=== PATIENT | female | born 1955 | race Caucasian/White ===

== ENCOUNTER 2020-02-09 12:00 | Outpatient (CLI) | payer MEDICARE, MEDICAID, SELFPAY ==
--- NOTE | 2020-02-09 12:12 | XRR_ITS ---
PROCEDURE INFORMATION: Exam: XR Left Hip with Pelvis when Performed Exam date and time: 02/09/2020 12:42 PM Age: 64 years old Clinical indication: Hip pain; Left hip; Additional info: L hip pain x 1 month TECHNIQUE: Imaging protocol: XR Left hip with pelvis when performed. Views: 2 or 3 views. COMPARISON: No relevant prior studies available. FINDINGS: Bones/joints: Unremarkable. No acute fracture. Soft tissues: Unremarkable. XR/XR hip LT 2-3V wo/w pel* [id number] IMPRESSION: No acute findings.
== END 2020-02-09 12:01 | disposition home or self-care (01) ==
PROVIDERS: Family Provider Family Medicine; Visit Provider Family Medicine
DX: M25.552 Pain in left hip (principal)
CPT/HCPCS: 73502

== ENCOUNTER → 2020-06-17 15:16 | Outpatient (BNVA) | payer MEDICARE, MEDICAID, SELFPAY | PROVIDERS: Family Provider Family Medicine; Visit Provider Nurse Practitioner Family | DX: Z20.828 Contact with and (suspected) exposure to other viral communicable diseases (principal) | CPT/HCPCS: 87635 ==

== ENCOUNTER → 2022-02-14 14:08 | Outpatient (BNVA) | payer MEDICARE, MEDICAID, SELFPAY | PROVIDERS: Family Provider Family Medicine; PCP Family Medicine; Visit Provider Psychiatry & Neurology Neurology | DX: Z79.899 Other long term (current) drug therapy (principal) | CPT/HCPCS: 80061; 83036 ==

== ENCOUNTER 2022-07-19 18:30 | Inpatient (IN) | payer MEDICARE, MEDICAID, SELFPAY ==
[2022-02-27 15:14] VITALS: BP 139/77; BMI 55.3
--- NOTE | 2022-07-19 18:34 | XRR_ITS ---
PROCEDURE INFORMATION: Exam: XR Chest Exam date and time: 07/19/2022 6:44 PM Age: 67 years old Clinical indication: Cough; Additional info: Confusion, low blood sugar and cough TECHNIQUE: Imaging protocol: Radiologic exam of the chest. Views: 1 view. COMPARISON: CR XR chest 2V* [id number] 10/02/2018 11:52 AM FINDINGS: Lungs: Minimal right basilar atelectasis or infiltrate. Pleural spaces: Unremarkable. No pleural effusion. No pneumothorax. Heart/Mediastinum: Calcified mediastinal nodes are unchanged. Cardiomegaly is increased now moderate. Bones/joints: Stable lower cervical spinal fusion changes. XR/XR chest 1V portable [id number] IMPRESSION: 1. Minimal right basilar atelectasis or infiltrate. Correlate for pneumonia. 2. Cardiomegaly is increased now moderate. Correlate for possible pericardial effusion.
[2022-07-19 18:40] VITALS: BP 125/73; PULSE 100; RESP 16; TEMP 37.3; O2SAT 92; BMI 51.3
--- NOTE | 2022-07-19 18:44 | CTR_ITS ---
PROCEDURE INFORMATION: Exam: CT Head Without Contrast Exam date and time: 07/19/2022 7:24 PM Age: 67 years old Clinical indication: Altered mental status/memory loss and dizziness; Additional info: AMS TECHNIQUE: Imaging protocol: Computed tomography of the head without contrast. Radiation optimization: All CT scans at this facility use at least one of these dose optimization techniques: automated exposure control; mA and/or kV adjustment per patient size (includes targeted exams where dose is matched to clinical indication); or iterative reconstruction. Other protocol: This patient has received 0 known CTs and 0 known cardiac nuclear medicine studies in the 12 months prior to the current study. COMPARISON: No relevant prior studies available. RADIATION DOSE METRICS: Total DLP (mGy-cm): 1158.78 FINDINGS: Brain: No hemorrhage. Unremarkable white matter. No mass effect. 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 Cerebral ventricles: No ventriculomegaly. Paranasal sinuses: Visualized sinuses are unremarkable. No fluid levels. Mastoid air cells: Visualized mastoid air cells are well aerated. Bones/joints: Unremarkable. No acute fracture. Soft tissues: Unremarkable. CT/CT head wo con* [id number] IMPRESSION: No acute intracranial abnormality.
--- NOTE | 2022-07-19 18:44 | ED_ITS ---
HPI - Altered Mental Status General: Chief Complaint: Altered Mental Status Stated Complaint: confusion, weakness Time Seen by Provider: 07/19/22 18:40 Source: patient and EMS Mode of arrival: EMS Limitations: no limitations History of Present Illness: 67-year-old female states that since noon today she has been having confusion along with generalized weakness she does have diabetes EMS and found her blood glucose to be 48 they gave her an amp of D50 she states she still just feels confused she is able to tell me the year and her name and answer most my questions but she does get lost at times she states she just feels fatigued as well denies any pain anywhere denies any headache or chest pain. Associated symptoms: Deny depression Review of Systems Const: Reports: fatigue Eyes: Denies: blurry vision or eye discomfort ENMT: Denies: throat pain or dental pain Card: Denies: chest pain Resp: Denies: dyspnea GI: Denies: abdominal pain, nausea, vomiting or diarrhea : Denies: dysuria Musc: Denies: neck pain or back pain Skin/Breast: Denies: rash Neuro: Reports: confusion Psych: Denies: depression Chay/Lymph: Denies: easy bruising All/Imm: Denies: urticaria PFSH ED PFSH: Medical History Generalized anxiety disorder Moderate episode of recurrent major depressive disorder Psychiatric care Family History (Updated 02/14/22 @ 12:52 by Meena Brothers RN) Other Cancer Diabetes Hypertension Hypothyroidism Social History Smoking and tobacco status: former smoker Quit status (tobacco): has quit using tobacco Year quit tobacco: 2009 Alcohol intake: never Adopted: No Caregiver/support person: Yes (sets up medication and vital signs and an aide that comes in and helps out) Lives independently: Yes Household members: children Housing: Apartment Marital status: Number of children: 3 Number of grandchildren: 6 Highest education level completed: Some College, No Degree Current occupational status: disabled Current occupation: disability since 1992 Pets and animals: No History of recent travel: No Leisure activites: other Leisure activities details: watch TV Current gender identity: Female Nida/Adventist: [employer] Special nida needs: No Agree to transfusion: Yes Financial difficulty paying for basics: Somewhat Hard Female Reproductive History: Para: 3 Physical Exam Const: COMMON NORMALS: patient oriented x3 GENERAL APPEARANCE: ill appearing HENMT: COMMON NORMALS: normocephalic HEAD & SCALP: normocephalic Eye: COMMON NORMALS: conjunctivae normal CONJUNCTIVA: Yes conjunctivae normal Neck/C-Spine: COMMON NORMALS: supple Chest: COMMONS NORMALS: normal inspection of the chest Resp: COMMON NORMALS: normal respiratory effort Cardio: COMMON NORMALS: regular rate and regular rhythm RATE: regular rate RHYTHM: regular rhythm GI: COMMON NORMALS: Normal to inspection, nondistended, normoactive bowel sounds present, Soft to palpation and non-tender PALPATION: Yes Soft to palpation Extremity: COMMON NORMALS: normal to inspection Neuro: COMMON NORMALS: patient oriented x3 and moves all extremities Psych: COMMON NORMALS: mental status grossly normal, Normal thought process present and cooperative THOUGHT PROCESS: Normal thought process present Skin: COMMON NORMALS: no rashes or lesions noted GENERAL SKIN EXAM: no rashes or lesions noted Course Vital Signs: Vital signs: Vital Signs Temperature 99.2 F 07/19/22 18:40 Pulse Rate 100 07/19/22 21:00 Respiratory Rate 16 07/19/22 21:00 Blood Pressure 162/76 07/19/22 21:00 Pulse Oximetry 100 07/19/22 21:00 Oxygen Delivery Me thod 07/19/22 19:07 Oxygen Flow Rate 3 07/19/22 18:40 MDM - Altered Mental Status Medical Decision Making Patient presents here with generalized weakness she is found to have a possible UTI blood work here is normal states that she feels too weak to ambulate does not feel safe at home will admit for observation. Lab Data 07/19/22 18:45 07/19/22 18:45 Radiology Impressions Chest X-Ray 07/19/22 18:34 IMPRESSION: 1. Minimal right basilar atelectasis or infiltrate. Correlate for pneumonia. 2. Cardiomegaly is increased now moderate. Correlate for possible pericardial effusion. Head CT 07/19/22 18:44 IMPRESSION: No acute intracranial abnormality. Laboratory Results WBC 12.0 10^3/uL (4.0-10.0) H 07/19/22 18:45 RBC 4.40 10^6/uL (4.1-5.3) 07/19/22 18:45 Hgb 9.5 g/dL (11.5-15.3) L 07/19/22 18:45 Hct 33.4 % (37.0-47.0) L 07/19/22 18:45 MCV 75.9 fl (81-99) L 07/19/22 18:45 MCH 21.6 pg (28.0-34.0) L 07/19/22 18:45 MCHC 28.4 g/dL (30.0-36.0) L 07/19/22 18:45 RDW 19.8 % (12.1-15.1) H 07/19/22 18:45 Plt Count 213 10^3/cmm (130-400) 07/19/22 18:45 MPV 10.7 fL (7.4-10.4) H 07/19/22 18:45 Neut % (Auto) 76.6 % 07/19/22 18:45 Lymph % (Auto) 13.5 % 07/19/22 18:45 [place] % (Auto) 8.6 % 07/19/22 18:45 Eos % (Auto) 0.7 % 07/19/22 18:45 Baso % (Auto) 0.3 % 07/19/22 18:45 Neut # (Auto) 9.20 10^3/uL (1.8-7.7) H 07/19/22 18:45 Lymph # (Auto) 1.6 10^3/uL (0.8-4.8) 07/19/22 18:45 [place] # (Auto) 1.0 10^3/uL (0.2-0.9) H 07/19/22 18:45 Eos # (Auto) 0.1 10^3/uL (0.0-0.8) 07/19/22 18:45 Baso # (Auto) 0.0 10^3/uL (0.0-0.1) 07/19/22 18:45 Nucleated RBC % (auto) 0 % 07/19/22 18:45 Nucleated RBCs # 0.0 /100WBC 07/19/22 18:45 PT 14.30 SECONDS (12.1-14.9) 07/19/22 18:45 INR 1.08 (0.8-1.2) 07/19/22 18:45 Specimen Type Arterial 07/19/22 21:10 Sample Site Radial, right 07/19/22 21:10 ABG pH 7.49 (7.35-7.45) H 07/19/22 21:10 ABG pCO2 45.4 mmHg (35-45) H 07/19/22 21:10 ABG pO2 69.3 mmHg (80.0-100.0) L 07/19/22 21:10 ABG HCO3 34.5 mmol/L (22-26) H 07/19/22 21:10 ABG Base Excess 10.0 mmol/L (-2.0-2.0) H 07/19/22 21:10 Luis M Test Pos 07/19/22 21:10 Hematocrit 30.3 % (37-47) L 07/19/22 21:10 O2 Delivery Device Nc 07/19/22 21:10 O2 Liters/Min 2.0 % 07/19/22 21:10 Financial Reporting Manager ID Ion 07/19/22 21:10 Sodium 134 mmol/L (136-145) L 07/19/22 18:45 Potassium 5.0 mmol/L (3.5-5.1) 07/19/22 18:45 Chloride 94 mmol/L (98-107) L 07/19/22 18:45 Carbon Dioxide 34 mmol/L (22-29) H 07/19/22 18:45 Anion Gap 11.0 (5-19) 07/19/22 18:45 BUN 24 mg/dL (8-23) H 07/19/22 18:45 Creatinine 0.9 mg/dL (0.5-0.9) 07/19/22 18:45 GFR Calculation 62.1 mL/min (90-130) L 07/19/22 18:45 Glucose 102 mg/dL (65-115) 07/19/22 18:45 Calculated Osmolality 282 mOsm/kg (285-295) L 07/19/22 18:45 Calcium 9.1 mg/dL (8.5-10.5) 07/19/22 18:45 Total Bilirubin 0.7 mg/dL (0.15-1.2) 07/19/22 18:45 AST 35 U/L (0-32) H 07/19/22 18:45 ALT 26 U/L (0-33) 07/19/22 18:45 Alkaline Phosphatase 135 U/L (35-105) H 07/19/22 18:45 Ammonia 24 umol/L (11-51) 07/19/22 18:45 Troponin T Baseline 16 ng/L (0-10) H 07/19/22 18:45 Troponin T 120 Minute 14.15 ng/L (0-10) H 07/19/22 20:15 Delta Troponin T -1.85 ABS# (0-10) L 07/19/22 20:15 NT-Pro-B Natriuret Pep 368 pg/mL (0-125) H 07/19/22 18:45 Total Protein 7.6 g/dL (6.6-8.7) 07/19/22 18:45 Albumin 3.3 g/dL (3.5-5.2) L 07/19/22 18:45 Globulin 4.3 g/dL (1.3-4.6) 07/19/22 18:45 TSH 0.59 uIU/mL (0.27-4.20) 07/19/22 18:45 Urine Color Yellow (Yellow) 07/19/22 20:20 Urine Appearance Hazy (CLEAR) A 07/19/22 20:20 Urine pH 6 (5-7) 07/19/22 20:20 Ur Specific [place] 1.010 (1.005-1.030) 07/19/22 20:20 Urine Protein Trace (Negative) 07/19/22 20:20 Urine Glucose (UA) 4+ (Normal) H 07/19/22 20:20 Urine Ketones 1+ (Negative) H 07/19/22 20:20 Urine Blood 2+ (Negative) H 07/19/22 20:20 Urine Nitrate Negative (Negative) 07/19/22 20:20 Urine Bilirubin Neg (Negative) 07/19/22 20:20 Urine Urobilinogen Norm mg/dL (Negative) 07/19/22 20:20 Ur Leukocyte Esterase 1+ (Negative) H 07/19/22 20:20 Urine RBC 5-10 /hpf (0-2) H 07/19/22 20:20 Urine WBC Too numerous to cnt /hpf (0-5) H 07/19/22 20:20 Ur Squamous Epith Cells 5-10 /hpf (0-5) H 07/19/22 20:20 Amorphous Sediment Not Reportable 07/19/22 20:20 Urine Bacteria 1+ /hpf (NONE) H 07/19/22 20:20 Urine Yeast 1+ /hpf H 07/19/22 20:20 EKG Data EKG 1: I personally reviewed and interpreted this EKG as follows: EKG interpretation date: 07/19/22 EKG interpretation time: 18:55 Interpretation: nsr hr 99 no sto r t wave abnormalities qrs 109 qtc 405 EKG 2: I personally reviewed and interpreted this EKG as follows: EKG interpretation date: 07/19/22 EKG interpretation time: 20:51 Interpretation: sinus tach hr [address] or t wave abnormalities qrs 98 qtc 402 Discharge Plan Discharge Patient Disposition: Admitted As Inpatient Clinical Impression: Weakness, Acute cystitis Condition: Stable Coding Level of Care Code ED Hi Lift Operator for Hemalatha Blanca
--- NOTE | 2022-07-19 18:55 | ECG_ITS ---
[facility] Test Date: 2022-07-19 Pat Name: Michelle Keita Department: Room: Gender: Female Coroner/Medical Examiner: : 1955 Requested By: Abel Moura Order Number: [id number] Panchito MD: Brennan Fletcher M.D. Measurements Intervals [place] Rate: 99 P: 67 [place]: 207 QRS: 7 QRSD: 109 T: 43 QT: 349 QTc: 449 Interpretive Statements SINUS RHYTHM Compared to ECG 06/09/2015 22:49:45 Sinus tachycardia no longer present Electronically Signed On 07-20-2022 0:12:45 CANAL BOAT CAPTAIN by Brennan Fletcher M.D. [email or web address] [email or web address] [email or web address] Internationaltoledo [email or web address]/[id number]
[2022-07-19 19:07] VITALS: BP 153/60; PULSE 98; O2SAT 97
[2022-07-19 19:09] LABS: Basophils % 0.3 %; Eosinophils # 0.1 10^3/uL (0.0-0.8); Eosinophils % 0.7 %; Hematocrit 33.4 % (37.0-47.0); Hemoglobin 9.5 g/dL (11.5-15.3); Lymphocytes # 1.6 10^3/uL (0.8-4.8); Lymphocytes % 13.5 %; Mean Corpuscular HGB Conc 28.4 g/dL (30.0-36.0); Mean Corpuscular Hemoglobin 21.6 pg (28.0-34.0); Mean Corpuscular Volume 75.9 fl (81-99); Mean Platelet Volume 10.7 fL (7.4-10.4); Monocytes % 8.6 %; Neutrophils % 76.6 %; Nucleated Red Blood Cells % 0 %; Platelet Count 213 10^3/cmm (130-400); Red Cell Distribution Width 19.8 % (12.1-15.1)
[2022-07-19 19:14] LABS: INR 1.08 (0.8-1.2)
[2022-07-19 19:22] LABS: Troponin(5th) Baseline 16 ng/L (0-10)
[2022-07-19 19:27] LABS: Ammonia 24 umol/L (11-51)
[2022-07-19 19:32] LABS: Alanine Aminotransferase 26 U/L (0-33); Albumin Level 3.3 g/dL (3.5-5.2); Alkaline Phosphatase 135 U/L (35-105); Aspartate Amino Transferase 35 U/L (0-32); Blood Urea Nitrogen 24 mg/dL (8-23); Calcium 9.1 mg/dL (8.5-10.5); Carbon Dioxide 34 mmol/L (22-29); Globulin 4.3 g/dL (1.3-4.6); Glomerular Filtration Rate 62.1 mL/min (90-130); Glucose 102 mg/dL (65-115); NT Pro B Type Natriuretic Pept 368 pg/mL (0-125); Thyroid Stimulating Hormone 0.59 uIU/mL (0.27-4.20); Total Bilirubin 0.7 mg/dL (0.15-1.2); Total Protein 7.6 g/dL (6.6-8.7)
[2022-07-19 19:45] LABS: Chloride 94 mmol/L (98-107); Sodium 134 mmol/L (136-145)
[2022-07-19 19:46] LABS: Osmolality Calculated 282 mOsm/kg (285-295)
[2022-07-19 20:22] VITALS: BP 135/54; PULSE 102; RESP 18; O2SAT 94
[2022-07-19 20:43] LABS: Troponin 5 2HR 14.15 ng/L (0-10); Troponin 5 2HR Delta -1.85 ABS# (0-10)
--- NOTE | 2022-07-19 20:51 | ECG_ITS ---
[facility] Test Date: 2022-07-19 Pat Name: Michelle Keita Department: Room: Gender: Female Supervisor Cloth Winding: : 1955 Requested By: Abel Moura Order Number: [id number] Panchito MD: Maddi Mabry M.D. Measurements Intervals [place] Rate: 103 P: 71 [place]: 208 QRS: 1 QRSD: 98 T: 44 QT: 343 QTc: 449 Interpretive Statements SINUS TACHYCARDIA ABNORMAL RHYTHM ECG Compared to ECG 07/19/2022 18:55:55 Sinus rhythm no longer present Electronically Signed On 07-21-2022 8:17:35 SPIRAL WINDING MACHINE HELPER by Maddi Mabry M.D. [id number]
[2022-07-19 20:52] LABS: Add Urine Microscopic? YES; Bilirubin Urine Neg (Negative); Blood Urine 2+ (Negative); Glucose Urine UA 4+ (Normal); Ketones Urine 1+ (Negative); Leukocyte Esterase Urine 1+ (Negative); Nitrate Urine Negative (Negative); Protein Urine Trace (Negative); Urine Appearance Hazy (CLEAR); Urine Color Yellow (Yellow); Urobilinogen Urine Norm (Negative); pH Urine 6 (5-7)
[2022-07-19 20:53] LABS: Add Urine Culture? Yes; Bacteria Urine 1+ /hpf; WBC Urine TOO NUMEROUS TO CNT /hpf (0-5)
[2022-07-19 21:00] VITALS: BP 162/76; PULSE 100; RESP 16; O2SAT 100
[2022-07-19] MEDS: cefTRIAXone 1,000 MG in sodium chloride 0.9% (plus) 50 ML 100 MG IV (21:13)
[2022-07-19 21:15] LABS: ABG PCO2 45.4 mmHg (35-45); ABG PH Result 7.49 (7.35-7.45); Arterial Blood Gas Hematocrit 30.3 % (37-47); Blood Gas Allen Test Pos; Blood Gas Sample Site Radial, right; Blood Gas Sample Type Arterial; HCO3 ABG 34.5 mmol/L (22-26); PO2 ABG 69.3 mmHg (80.0-100.0)
[2022-07-19 21:17] LABS: Oxygen Device NC
[2022-07-19 22:02] VITALS: BP 143/78; PULSE 102; RESP 16; O2SAT 100
[2022-07-19 22:57] VITALS: BMI 53.5
[2022-07-19 23:03] LABS: Glucose Point of Care 59 mg/dL (70-110)
--- NOTE | 2022-07-19 23:10 | PC.NURSE ---
Patient arrived on floor A&Ox0 with a blood sugar of 59. Patient was given 2 containers of orange juice mixed with 2 sugar packets and tolerated drink well.
--- NOTE | 2022-07-19 23:10 | PC.NURSE ---
Dr Pino was notified regarding low blood sugar.
[2022-07-19 23:34] LABS: Glucose Point of Care 79 mg/dL (70-110)
--- NOTE | 2022-07-19 23:34 | PC.NURSE ---
Blood sugar rechecked and noted at 79. Patient was given 2 more containers of orange juice mixed with 4 packets of sugar. No new orders received from Dr Pino at this time.
[2022-07-20] VITALS (9 sets, daily range): BP systolic 98–172; BP diastolic 57–83; PULSE 84–114; RESP 16–32; TEMP 36.4–37.9; O2SAT 92–99
--- NOTE | 2022-07-20 00:38 | PC.NURSE ---
Dr Pino contacted regarding blood sugar of 59 which went up to [address] Pino instructed to give dextrose 50% 50ml. Pharmacy was contacted regarding order, in which nurse was informed there is a nationwide ampule shortage. Pharmacy informed nurse that the order would be altered slightly but would still able to give patient D50.
[2022-07-20 00:46] LABS: Glucose Point of Care 137 mg/dL (70-110)
--- NOTE | 2022-07-20 00:47 | PC.NURSE ---
Patient's blood sugar was rechecked and registered at 137. Dr Pino was called and order for D50 was clarified. Dr Pino instructed nurse to hold D50 at this time. Nurse also informed Dr Pino that patient was hurting, and order for morphine 2mg IVP one time was given by doctor at this time.
[2022-07-20] MEDS: morphine 4 mg/mL SDV 1 mL 2 MG IVP ×2 (00:56→22:21)
--- NOTE | 2022-07-20 01:01 | ECG_ITS ---
[facility] Test Date: 2022-07-20 Pat Name: Michelle Keita Department: Room: 252 Gender: Female Analysis Intern: : 1955 Requested By: Abel Moura Order Number: [id number] Panchito MD: Maddi Mabry M.D. Measurements Intervals [place] Rate: 104 P: -47 [place]: 194 QRS: 31 QRSD: 107 T: 39 QT: 323 QTc: 426 Interpretive Statements SINUS TACHYCARDIA ABNORMAL RHYTHM ECG Compared to ECG 07/19/2022 20:51:16 No significant changes Electronically Signed On 07-21-2022 8:16:48 CHILD CARE COUNSELOR by Maddi Mabry M.D. [email or web address] Ulsterarroyo grande community [id number]
--- NOTE | 2022-07-20 01:07 | PC.NURSE ---
Patient moaning in pain. Morphine IVP administered.
[2022-07-20 01:34] LABS: Troponin 5 6HR 15.56 ng/L (0-10)
[2022-07-20 01:35] LABS: Troponin 5 6HR Delta -0.44 ng/L (0-12)
[2022-07-20] MEDS: enoxaparin 40 mg/0.4 mL Syringe SUBCUT (02:49)
[2022-07-20] MEDS: carvedilol 6.25 mg Tablet PO ×3 (02:50→17:51)
[2022-07-20] MEDS: acetaminophen 325 mg Tablet 650 MG PO (02:50)
[2022-07-20] MEDS: cefTRIAXone 1,000 MG in sodium chloride 0.9% (plus) 50 ML 100 MG IV (02:50)
[2022-07-20 03:19] LABS: SARS Covid-2 Antigen negative (Negative)
[2022-07-20 03:19] LABS: Influenza A by IFA negative (Negative); Influenza B by IFA negative (Negative)
[2022-07-20 03:33] LABS: Glucose Point of Care 165 mg/dL (70-110)
--- NOTE | 2022-07-20 04:08 | PC.NURSE ---
Patient's blood sugar remains above 100 at this time. Patient is A&O to name occasionally. When asked any specific orientation question, patient will appear to comprehend question but can't recall the information. Not oriented to , location, year, or the current president. Pupils equal, round, reactive to light but patient is unable to follow nurse's finger. Patient is able to perform hand support manager, push and pull against nurse's hands with her feet, but unable to perform [id number] and hbcu-[id number] tests without moderate impairment. Lungs are coarse with intermittent cough that is nonproductive. Patient presents with murmur upon auscultation of heart sounds. 2+ pitting edema present in bilateral lower extremities, accompanied by redness and inflammation of skin. Patient is incontinent of urine and stool, and patient has been inspected for skin breakdown on bottom and back; sacrum appears slightly red, but no skin breakdown present. Slight redness present in the folds/creases between legs and belly in the pelvic area. Patient appears diaphoretic, despite blood sugars stabilized, and reports being warm. Patient presents with a temperature of 100.2, and was given cool wash cloths for face and neck. Patient also received Tylenol and morphine for pain. Patient has had 2 large voids, incontinent, and has been cleaned up. Patient now remains resting in bed with two side rails up, bedside table and call light within reach, and no further needs at this time.
--- NOTE | 2022-07-20 06:29 | USCV_ITS ---
Michelle Keita Age: 67 Gender: F : 1955 Exam Date: 07/20/2022 08:33 Ordering Phys: Henrietta Pino MD Technologist: Dc Babin Exam Location: [facility] Indication: chf as BP: 127 / 75 HR: 86 Rhythm: Sinus Technical Quality: Adequate MEASUREMENTS (Male / Female) Normal Values 2D ECHO LV Diastolic Diameter PLAX 4.8 cm 4.2 - 5.9 / 3.9 - 5.3 cm LV Systolic Diameter PLAX 3.0 cm IVS Diastolic Thickness 1.3 cm 0.6 - 1.0 / 0.6 - 0.9 cm IVS Systolic Thickness 2.4 cm LVPW Diastolic Thickness 1.3 cm 0.6 - 1.0 / 0.6 - 0.9 cm LVPW Systolic Thickness 1.5 cm LVOT Diameter 2.1 cm LV Ejection Fraction 2D Teich 67.9 % LV Ejection Fraction MOD 2C 58.3 % LV Ejection Fraction 2C AL 58.3 % LA Diameter 3.6 cm Aorta at Sinotubular Diameter 2.7 cm IVC Diameter 2.8 cm M-MODE Aortic Annulus Diameter 2.9 cm LA Ao Ratio MM 1.4 MV E Point Septal Separation 1.3 cm DOPPLER AV Peak Velocity 450.0 cm/s LVOT Peak Velocity 121.0 cm/s AV Area Cont Eq vti 1.3 cm squared AV Area Cont Eq pk 0.9 cm squared MV Area PHT 5.0 cm squared Mitral E to A Ratio 1.1 MV E' Velocity 91.0 cm/s Mitral E to MV E' Ratio 22.2 Mitral E to LV E' Lateral Ratio 20.6 Mitral E to LV E' Septal Ratio 24.4 TR Peak Velocity 220.7 cm/s TR Peak Gradient 19.5 mmHg TV Peak E Velocity 96.0 cm/s Right Atrial Pressure 3.0 mmHg Pulmonary Artery Systolic Pressu 22.5 mmHg RV Acceleration Time 0.2 s FINDINGS Left Ventricle Left ventricle is normal in size. LV systolic function normal with EF 55 to 60%. No regional wall motion abnormalities are seen. Right Ventricle Normal in size and function Right Atrium Normal in size Left Atrium Dilated Mitral Valve Moderate mitral annular calcification is seen. Mild mitral regurgitation. Aortic Valve Aortic valve is thickened. Moderate to severe aortic stenosis with a valve area of 1.2 cm squared and mean gradient across aortic valve of 34 mmHg. Tricuspid Valve Trace tricuspid regurgitation. Insufficient tricuspid regurgitation. Pulmonic Valve Trace pulmonic regurgitation. Pericardium Normal Aorta Normal in size IVC Dilated CONCLUSIONS LV systolic function is normal with EF of 55 to 60% Left atrial dilation Mild mitral regurgitation Modarate to severe aortic stenosis Trace tricuspid regurgitation Trace pulmonic regurgitation No comparison studies are available Benigno Crandall MD (Electronically Signed) Final Date: 20 July 2022 11:12 S
--- NOTE | 2022-07-20 06:36 | P.HP_ITS ---
Providers/Chief Complaint Admitting Physician: Henrietta Pino MD Primary Care Provider: Summer Strickland DO Chief Complaint: confusion, weakness History of Present Illness Michelle Keita is a 67 year old female with a past medical history of hypertension, diabetes mellitus, gout, brought to the emergency room today by family after concerns for altered mental status. Yesterday afternoon patient started to feel disoriented and confused which is new for her. At the time of my assessment patient is able to tell me that she recalls feeling disoriented. She is able to tell me her correct name age date of , address, her medical history and symptoms which started just yesterday. She describes her symptoms as feeling exceedingly sleepy. Patient falls asleep easily multiple times during the course of conversation. She has a history of sleep apnea and as far as she is aware her CPAP has been functioning without any issues. She has had a low-grade fever since yesterday. Denies any chills. Denies any dysuria at this time. No recent changes in her medications. She has lower extremity edema, states that she takes Lasix at home, however I do not see it on her home medication list. Denies any known history of CHF. Denies any chest pain dyspnea or palpitations. Review of Systems General: Reports: 10 or more systems reviewed and unremarkable except in HPI and below Const: Denies: fever(s), chills or body aches Eyes: Denies: change in vision, blurry vision or photophobia ENMT: Reports: hoarseness; Denies: throat pain, enlarged tonsils, odynophagia or nasal congestion Card: Denies: chest pain, palpitations, irregular heart rhythm, edema, swelling of feet/ankles, lightheadedness, pre-syncope, dyspnea on exertion or orthopnea Resp: Denies: dyspnea, productive cough, non-productive cough, wheezing, stridor, pain on inspiration, change in phlegm color, hemoptysis or chest congestion GI: Denies: abdominal pain, nausea, vomiting, hematemesis, coffee ground emesis, dysphagia, heartburn, diarrhea, constipation, GI cramping, change in stool character, hematochezia or melena : Denies: flank pain, difficulty voiding, dysuria, urinary frequency, urinary urgency, urinary hesitancy or hematuria Musc: Denies: neck pain, back pain, extremity pain, joint swelling, joint warmth or deformity Neuro: Denies: headache(s), numbness in extremities, weakness in extremities, sensory changes, difficulty walking, frequent falls, dizziness, vertigo, behavioral changes, Slurred speech present or seizure-like activity Psych: Denies: anxiety, depression, suicidal ideation or homicidal ideation Endo: Denies: polyuria, polydipsia, tired all the time, cold intolerance or hot flashes Chay/Lymph: Denies: easy bruising or easy bleeding Medications/Allergies Home Medications Medication Instructions Recorded Confirmed Last Taken Type alprazolam 0.25 mg tablet (Xanax) 0.25 mg PO BID 10/08/19 02/14/22 Unknown History aspirin 81 mg tablet,delayed 81 mg PO DAILY 10/08/19 02/14/22 Unknown History release (Adult Aspirin Regimen) carvedilol 6.25 mg tablet (Coreg) 6.25 mg PO BID 10/08/19 02/14/22 Unknown History donepezil 10 mg tablet (Aricept) 10 mg PO DAILY 10/08/19 02/14/22 Unknown History duloxetine 60 mg capsule,delayed 60 mg PO DAILY 10/08/19 02/14/22 Unknown History release (Cymbalta) empagliflozin 25 mg-linagliptin 5 1 tab PO DAILY 10/08/19 02/14/22 Unknown History mg tablet (Glyxambi) febuxostat 80 mg tablet (Uloric) 80 mg PO DAILY 10/08/19 02/14/22 Unknown History hydrocodone bitartrate 10 mg 10 mg PO Q12H 10/08/19 02/14/22 Unknown History capsule, oral only, extended rel 12 hr levothyroxine 100 mcg tablet 100 mcg PO DAILY 10/08/19 02/14/22 Unknown History omeprazole 20 mg capsule,delayed 20 mg PO DAILY 10/08/19 02/14/22 Unknown History release pramipexole 1.5 mg tablet,extended 1.5 mg PO DAILY 10/08/19 02/14/22 Unknown History release 24 hr (Mirapex ER) pregabalin 100 mg capsule (Lyrica) 100 mg PO DAILY 10/08/19 02/14/22 Unknown History simvastatin 40 mg tablet (Zocor) 40 mg PO DAILY 10/08/19 02/14/22 Unknown History doxycycline hyclate 100 mg tablet 100 mg PO BID 10 days #20 tabs 04/07/21 02/14/22 Unknown Rx Allergies Allergy/AdvReac Type Severity Reaction Status Date / Time lisinopril Allergy Severe kidney Verified 02/14/22 11:41 failure Sulfa (Sulfonamide Allergy Intermediate ALGY-Rash Verified 02/14/22 11:41 Antibiotics) grass pollen Allergy Mild It's just Verified 02/14/22 11:41 a mild allergy. polyethylene glycol 3350 AdvReac Mild ADR-Nausea Verified 02/14/22 11:41 [From Miralax] PFSH Acute PFSH: Medical History (Updated 07/20/22 @ 06:43 by Henrietta Pino MD) CHF (congestive heart failure) COPD (chronic obstructive pulmonary disease) Diabetes Generalized anxiety disorder Hyperlipidemia Hypertension Hypothyroid Moderate episode of recurrent major depressive disorder Psychiatric care Sleep apnea Surgical History (Updated 07/20/22 @ 06:42 by Henrietta Pino MD) H/O carpal tunnel repair H/O total knee replacement lt x2 rt x 1 History of cholecystectomy History of neck surgery Family History Other Cancer Diabetes Hypertension Hypothyroidism Social History Smoking and tobacco status: former smoker Quit status (tobacco): has quit using tobacco Year quit tobacco: 2009 Alcohol intake: never Adopted: No Caregiver/support person: Yes (sets up medication and vital signs and an aide that comes in and helps out) Lives independently: Yes Household members: children Housing: Apartment Marital status: Number of children: 3 Number of grandchildren: 6 Highest education level completed: Some College, No Degree Current occupational status: disabled Current occupation: disability since 1992 Pets and animals: No History of recent travel: No Leisure activites: other Leisure activities details: watch TV Current gender identity: Female Nida/Voodoo: Yazdanism Special nida needs: No Agree to transfusion: Yes Financial difficulty paying for basics: Somewhat Hard Female Reproductive History: Para: 3 Vitals/I&O/Wt Last Vital Signs Temp 100.2 F H 07/20/22 03:46 Pulse 89 07/20/22 03:46 Resp 18 07/20/22 03:46 BP 124/63 07/20/22 03:46 Pulse Ox 93 07/20/22 03:46 O2 Del Method 07/20/22 03:46 O2 Flow Rate 3 07/20/22 03:46 07/19/22 07/19/22 07/20/22 14:59 22:59 06:59 Intake Total 50 / 50 50 / 100 Balance 50 / 50 50 / 100 Weight last 48 hrs Weight 137.155 kg Weight 131.542 kg Physical Exam Narrative: General: No acute distress, AO x3 HEENT: PERRLA, pupils bilaterally equal and reactive, pallors not present Chest: Normal vesicular breath sounds, no added sounds, equal good air entry bilaterally CVS: S1-S2 regular, no murmurs, no tachycardia, no gallops, no rubs Abdomen: Soft, nontender, no organomegaly, bowel sounds present Neuro: No focal deficits, no facial deformity, AO x3, power 5/5 in all limbs, falls asleep easily multiple times during the course of conversation. Extremities 3+ pitting edema bilateral lower extremities Data 07/19/22 18:45 07/19/22 18:45 A&P Assessment and plan (1) Altered mental status: (2) Encephalopathy acute: (3) Acute cystitis: (4) CHF (congestive heart failure): (5) Anasarca: Plan 67-year-old lady brought to the emergency room with chief complaints ofConfusion, disorientation, altered mental status. At the time of assessment patient is falling asleep easily, however able to wake up on calling name, she is able to correctly answer all orientation questions. CT head without any acute intracranial abnormalities. ABG without any evidence of significant hypercapnia. Noted to have hypoxia with PO2 of 69 on supplemental O2 of 3 L/min. Overall ABG with respiratory alkalosis. Check TSH Patient was also hypoglycemic with blood sugar of 59 upon arrival Currently her mental status appears to be related to encephalopathy, may be multifactorial related to hypoxia, hypoglycemia, sleep apnea, infection, likely acute cystitis versus polypharmacy. Clinically she appears to have anasarca with gross edema. Denies a known history of CHF, however noted to have cardiomegaly on chest x-ray. Certainly possible that with longstanding sleep apnea she may have some right-sided heart failure as well. We will check echocardiogram. At this time CHF is a clinical diagnosis, unknown if systolic or diastolic or acute or chronic. Start Lasix 40 mg IV every 12 hours. Closely monitor urine output and kidney function with initiation of Lasix as a new medication. Dose will likely need to be titrated based on urine output. Hold all hypoglycemic agents. Hold home doses of opiates, alprazolam, Lyrica and monitor for improvement in mental status. Low suspicion for meningitis as patient is alert awake oriented when awakened. Check rapid COVID antigen. Chest x-ray with possible atelectasis versus fluid versus pneumonia Start ceftriaxone 1 g IV every 24 hours for UTI. Will additionally cover for possibility of community-acquired pneumonia. Check sputum culture. Continue CPAP use while in the hospital. Attestations Medical Necessity Statement*: Greater than 2 midnight admission is anticipated for above defined care Coding Level of Care Code Acute Code for Chg Fwd Moderate MDM includes risk/complexity, reviewing previous or external records, reviewing test results, ordering lab/other test(s) and independently interpreta ting test(s) (not separately recorded) Other Coding Information Focused coding review requested Diagnoses Altered mental status R41.82 Encephalopathy acute G93.40 Acute cystitis N30.00 CHF (congestive heart failure) I50.9 Anasarca R60.1
--- NOTE | 2022-07-20 06:42 | USCV_ITS ---
Michelle Keita Age: 67 Gender: F : 1955 Exam Date: 07/20/2022 08:51 Ordering Phys: Henrietta Pino MD Technologist: Dc Babin Exam Location: [facility] [place]_ Indication: pedal edema HISTORY: Lower extremity edema. PROCEDURES: The venous duplex Doppler examination of both lower extremities was performed in the standard fashion. The following venous structures were evaluated: common femoral vein, profunda vein, proximal portion of the greater saphenous vein, superficial femoral vein, and the popliteal vein. In addition, the posterior tibial and peroneal trunk were evaluated. FINDINGS: Normal 2-D Doppler and augmentation and compressibility throughout the lower extremity venous structures. Additional imaging through the proximal calf veins also reveals no thrombus. Limited evaluation of the greater saphenous vein is patent with no thrombus.. CONCLUSIONS No evidence of right lower extremity DVT. No evidence of left lower extremity DVT. Rob Shore MD (Electronically Signed) Final Date: 20 July 2022 09:52 S
[2022-07-20 08:03] LABS: D Dimer 3.47 ug/mIFEU (0-0.59)
[2022-07-20] MEDS: FUROsemide 10 mg/mL SDV 4mL 40 MG IVP ×2 (09:49→22:25)
[2022-07-20] MEDS: ALPRAZolam 0.5 mg Tablet 0.25 MG PO ×2 (09:51→17:51)
[2022-07-20] MEDS: pantoprazole DR 40 mg Tablet PO (09:51)
[2022-07-20] MEDS: aspirin 81 mg EC Tablet PO (09:51)
[2022-07-20] MEDS: donepezil 5 MG Tablet 10 MG PO (09:51)
[2022-07-20] MEDS: atorvastatin 40 mg Tablet PO (09:52)
[2022-07-20] MEDS: levothyroxine 100 mcg Tablet PO (09:52)
[2022-07-20] MEDS: azithromycin 250 mg Tablet 500 MG PO (09:52)
--- NOTE | 2022-07-20 10:26 | PM.PN ---
Subjective Subjective: This morning patient is awake and alert Able to communicate Mentation is getting cleared She is stating that she is suffering from urinary incontinence and frequency She has noticed fever at home one 1.9 She has been more bloated She was recently transitioned from Lasix to Bumex She is a walker at home and uses 3 L of oxygen at baseline H&P reviewed Hemoglobin 9.5, D-dimer 3.4 Abnormal UA with pyuria Troponin 16, 14 with negative delta Sodium 134 WBC Too numerous to count COVID negative No evidence of DVT EKG without ischemic or infarctive changes Vitals/I&O/Wt Last Vital Signs Temp 97.5 F L 07/20/22 08:30 Pulse 84 07/20/22 08:30 Resp 32 H 07/20/22 08:30 BP 124/70 07/20/22 08:30 Pulse Ox 99 07/20/22 08:30 O2 Del Method 07/20/22 08:30 O2 Flow Rate 3 07/20/22 08:30 07/19/22 07/20/22 07/20/22 22:59 06:59 14:59 Intake Total 50 / 50 50 / 100 Balance 50 / 50 50 / 100 Weight last 48 hrs Weight 137.155 kg Weight 131.542 kg Physical Exam Narrative: Patient is awake and alert Morbidly obese Active signs of heart failure 2+ edema of legs Hdez catheter in place Abdomen soft however distended S1, S2 with systolic murmur Patient is on 3 L No audible stridor or wheezing Nonfocal neuro exam Urinary Catheter Management: Hdez: Cath Placed During This Visit: yes Urinary Catheter Date of Insertion: 07/20/22 Urinary Catheter Time of Insertion: 07:28 Data 07/19/22 18:45 07/19/22 18:45 Micro: Microbiology 07/20/22 07:35 Blood Culture - Preliminary Blood SPECIMEN COLLECTED 07/20/22 07:30 Blood Culture - Preliminary Blood SPECIMEN COLLECTED A&P Assessment and plan (1) Anasarca: (2) CHF (congestive heart failure): (3) Encephalopathy acute: (4) Altered mental status: (5) Weakness: (6) Acute cystitis: (7) Moderate episode of recurrent major depressive disorder: (8) UTI (urinary tract infection): Plan UTI Continue ceftriaxone We will follow-up with urine culture No sign of sepsis Metabolic encephalopathy related to UTI: Resolved Diastolic CHF exacerbation left related to under Sleep apnea: Continue IV Lasix Patient was on Bumex at home Continue levothyroxine for hypothyroidism Sleep apnea she is on 3 L of oxygen [id number] High D-dimer: Ruled out DVT, venous Doppler did not show DVT Cardiac diet Plan to discharge her back tomorrow if clinically stable We will follow-up with echo report Attestations Medical Necessity Statement*: Discharge tomorrow Coding Level of Care Code Acute Code for Chg Fwd Diagnoses Anasarca R60.1 CHF (congestive heart failure) I50.9 Encephalopathy acute G93.40 Altered mental status R41.82 Weakness R53.1 Acute cystitis N30.00 Moderate episode of recurrent major depressive disorder F33.1 UTI (urinary tract infection) N39.0
--- NOTE | 2022-07-20 10:31 | CT_ITS ---
WS: [id number] CTA OF THE CHEST WITH PULMONARY EMBOLISM PROTOCOL TECHNIQUE: High-resolution contrast enhanced CTA of the chest with coronal and sagittal reformatted i mages with pulmonary embolism protocol. MIP images are also reviewed. CLINICAL INFORMATION: hypoxia COMPARISON: None. DLP: 721.[address] scans at [facility] use at least one of these dose optimization techniques: automated e xposure control; mA and/or kV adjustment per patient size (includes targeted exams where dose is matc hed to clinical indication); or iterative reconstruction. FINDINGS: Proximal main pulmonary arteries are normal. Normal segmental and subsegmental pulmonary arteries. No evidence of pulmonary embolus. Normal caliber thoracic aorta. Aortic calcification. Coronary calcifi cation. Calcified anterior mediastinal and subcarinal lymph nodes. Calcified hilar lymph nodes. Calci fied granulomas. Prominent peribronchial lymph nodes likely reactive. No axillary lymphadenopathy. Partially visualize d hepatomegaly and splenomegaly. Small esophageal hiatal hernia. Slight subsegmental atelectasis in t he lung bases. Slight atelectasis in the RIGHT middle lobe and RIGHT lower lobe laterally. No focal p neumonia. Hypertrophic changes thoracic spine. Normal caliber thoracic aorta. Postoperative changes l ower cervical and upper thoracic spine. CT/CT angio chest PE protcl [id number] IMPRESSION: 1. No evidence of pulmonary embolus. 2. No focal pneumonia or pleural fluid. 3. Slight bibasilar atelectasis. Slight atelectasis in the RIGHT middle lobe a nd RIGHT lower lobe laterally. 4. Partially visualized hepatomegaly and splenomegaly. 5. No other acute findings.
[2022-07-20] MEDS: iohexol 350 mg/mL 500 mL Btl (per mL) IV (12:17)
[2022-07-20 22:11] LABS: Glucose Point of Care 224 mg/dL (70-110)
[2022-07-21] VITALS (114 sets, daily range): BP systolic 99–190; BP diastolic 37–136; PULSE 60–119; RESP 14–36; TEMP 36.6–38.8; O2SAT 82–100
[2022-07-21] MEDS: diphenhydrAMINE 25 mg Capsule PO (01:40)
--- NOTE | 2022-07-21 02:09 | XRR_ITS ---
PROCEDURE INFORMATION: Exam: XR Chest Exam date and time: 07/21/2022 2:55 AM Age: 67 years old Clinical indication: Tachypnea; Chest pressure; Prior surgery; Surgery type: Gb; Patient HX: C/O chest pain with tachycardia on monitor. On bipap. History of chf. TECHNIQUE: Imaging protocol: Radiologic exam of the chest. Views: 1 view. COMPARISON: CR (CHEST, ) 07/19/2022 6:44 PM FINDINGS: Lungs: Moderate hazy patchy infiltrates have increased throughout. Pleural spaces: No pneumothorax. Possible tiny pleural effusions. Heart/Mediastinum: The heart is very large. Multiple calcified mediastinal and hilar lymph nodes. Vasculature: Advanced diffuse vascular calcification noted. Bones/joints: Lower cervical fusion. XR/XR chest 1V portable [id number] IMPRESSION: 1. Progressive areas of bilateral hazy atelectasis, edema or developing pneumonia with tiny possible effusions. 2. No pneumothorax.
--- NOTE | 2022-07-21 02:10 | ECG_ITS ---
[facility] Test Date: 2022-07-21 Pat Name: Michelle Keita Department: Room: [facility]07 Gender: Female Ticketing Clerk: : 1955 Requested By: Henrietta Pino Order Number: [id number] Reading MD: Star Mendoza M.D. Measurements Intervals [place] Rate: 123 P: 71 TX: 174 QRS: 16 QRSD: 95 T: 69 QT: 293 QTc: 419 Interpretive Statements SINUS TACHYCARDIA MODERATE ST DEPRESSION [0.05+ mV ST DEPRESSION] INTERPRETATION BASED ON A DEFAULT AGE OF 40 YEARS Compared to ECG 07/20/2022 01:01:42 ST (T wave) deviation now present Electronically Signed On 07-21-2022 16:17:47 MIRROR SILVERER by Star Mendoza M.D. [id number]
[2022-07-21] MEDS: nitroglycerin 1 gm/inch oint Pkt 0.5 INCH TOPICAL (02:14)
[2022-07-21] MEDS: hydrocortisone 100 mg/2 mL SDV 125 MG IVP (02:16)
[2022-07-21] MEDS: FUROsemide 10 mg/mL SDV 4mL 40 MG IVP ×2 (02:18→11:37)
--- NOTE | 2022-07-21 02:24 | PC.NURSE ---
pt noted to have increase redness and swelling to nose and under both eyes, pt also noted to have a blister to tip of nose. this nurse notified Dr. pino at 0100 of pts change in condition, Dr. Pino ordered Benadryl PO Once for possible allergic reaction.when this nurse entered pts room to administered medication, pt states she is having a hard time breathing- vitals:BP-208/120, P-112, SPO2-83 on 3L oxygen via NC. this nurse notified Dr. Pino again with pts worsening condition, pts oxygen increased to 10L via oxy mask, pt continue to struggle to breathe. Dr. Pino ordered for pt to be sent to ICU bed 7, Daughter notified and states understanding of transfer.
[2022-07-21] MEDS: nitroglycerin drip 50 MG/250 ML PREMIX IV (02:25)
[2022-07-21 02:55] LABS: Basophils # 0.1 10^3/uL (0.0-0.1); Basophils % 0.5 %; Eosinophils # 0.1 10^3/uL (0.0-0.8); Eosinophils % 0.3 %; Hematocrit 36.5 % (37.0-47.0); Hemoglobin 10.3 g/dL (11.5-15.3); Lymphocytes # 1.7 10^3/uL (0.8-4.8); Lymphocytes % 11.2 %; Mean Corpuscular HGB Conc 28.2 g/dL (30.0-36.0); Mean Corpuscular Hemoglobin 21.5 pg (28.0-34.0); Mean Platelet Volume 10.3 fL (7.4-10.4); Monocytes # 0.9 10^3/uL (0.2-0.9); Monocytes % 5.9 %; Neutrophils # 12.15 10^3/uL (1.8-7.7); Neutrophils % 81.6 %; Nucleated Red Blood Cells % 0 %; Platelet Count 206 10^3/cmm (130-400); Red Cell Distribution Width 20.5 % (12.1-15.1); White Blood Count 14.9 10^3/uL (4.0-10.0)
--- NOTE | 2022-07-21 02:59 | PM.CCNAC ---
Critical Care Event Note The high probability of a clinically significant, sudden or life threatening deterioration of the patient's [respiratory, circulatory] system(s) required my full and direct attention, intervention and personal management. The critical care time is as shown. This time is in addition to time spent performing any reported procedures but includes the following: [x] Data and vital sign review and interpretation [x] Patient assessment, examination and intervention [x] Documentation [x] Medication orders and management Critical Care Time Code activated: No Critical Care Time (min): 60 Additional information about critical care time: Called by nurse at around 2 AM that patient developed sudden respiratory distress. Patient was extremely diaphoretic, tachypneic, in visible respiratory distress, rapp coloration, SPO2 83% on 5 L/min oxygen mask. She was struggling to breathe. Telemetry showed sinus tachycardia with a heart rate of 130 bpm. She was given Lasix 40 mg IV stat, Nitropaste half inch was applied and she received hydrocortisone 125 mg IV stat. She was transferred to the ICU and placed on Bipap. She lost IV access which necessitated placement of an emergent left CVC femoral line. She was started on a nitro drip. Blood pressure at the time of acute events was 210/152 mmHg. On examination there were crackles to bilateral auscultation. Overall clinical impression was that of flash pulmonary edema. Stat labs including CBC CMP magnesium troponin series drawn after placement of CVC. Stat chest x-ray ordered, currently awaited. Echocardiogram from earlier today had shown moderate to severe , , LVEF of 55 to 60%, left atrial dilatation. Patient complained of chest pressure during these events. Twelve-lead EKG showed sinus tachycardia with heart rate of 120 bpm. A CTA of the chest had been completed earlier this morning, was negative for any PE. There was no focal pneumonia or pleural fluid on the CT. ABG is awaited. By 3 am, patient is feeling improved. Much more comfortable on the Bipap now. BP 140/74 on nitro drip 1.5. Coding Level of Care Code Acute Code for Chg Fwd
[2022-07-21 03:20] LABS: ABG PH Result 7.49 (7.35-7.45); Arterial Blood Gas Hematocrit 32.3 % (37-47); Base Excess ABG 10.1 mmol/L (-2.0-2.0); Blood Gas Allen Test Pos; Blood Gas Operator Identificat JB; Blood Gas Sample Site Radial, right; Blood Gas Sample Type Arterial; HCO3 ABG 34.7 mmol/L (22-26); Oxygen Device BIPAP
[2022-07-21] MEDS: enoxaparin 40 mg/0.4 mL Syringe SUBCUT (03:23)
[2022-07-21] MEDS: cefTRIAXone 1,000 MG in sodium chloride 0.9% (plus) 50 ML 100 MG IV (03:23)
[2022-07-21 03:26] LABS: Lactate (Lactic Acid level) 1.1 mmol/L (0.5-2.2)
[2022-07-21 03:27] LABS: Alanine Aminotransferase 22 U/L (0-33); Albumin Level 3.3 g/dL (3.5-5.2); Alkaline Phosphatase 139 U/L (35-105); Anion Gap 18.2 (5-19); Aspartate Amino Transferase 28 U/L (0-32); Blood Urea Nitrogen 16 mg/dL (8-23); Calcium 8.5 mg/dL (8.5-10.5); Carbon Dioxide 29 mmol/L (22-29); Chloride 94 mmol/L (98-107); Globulin 4.6 g/dL (1.3-4.6); Glomerular Filtration Rate 71.1 mL/min (90-130); Glucose 186 mg/dL (65-115); Magnesium 1.9 mg/dL (1.7-2.3); Osmolality Calculated 290 mOsm/kg (285-295); Potassium 4.2 mmol/L (3.5-5.1); Sodium 137 mmol/L (136-145); Total Bilirubin 0.6 mg/dL (0.15-1.2); Total Protein 7.9 g/dL (6.6-8.7)
--- NOTE | 2022-07-21 03:27 | PM.ACPR ---
Procedure/Consent Time out: Time Out Performed: Yes Acute Procedures Central Line Placement: Left Femoral: Time out performed: Yes Patient placed on monitor/pulse ox: Yes MD prep: mask, gown and gloves Central line prep: Chlorhexidine scrub Local anesthesia used: lidocaine 1% Amount of anesthesia used (ml): 5 Ultrasound used for placement: Yes Central line lumen inserted: triple Post procedure: sutured in place, good blood return, all ports aspirated, flushed, capped and sterile dressing applied Post procedure x-ray: other Patient tolerated procedure: well Complications: none Additional comments: 2 attempts at placement. First attempt on right side unsuccessful. Second attempt on left side successful. Epistaxis Control: Time out performed: Yes
[2022-07-21 03:30] LABS: Troponin(5th) Baseline 23 ng/L (0-10)
--- NOTE | 2022-07-21 03:30 | PC.NURSE ---
Transfer Patient arrived to unit from [facility] via bed with multiple nurses and Dr. Pino at bedside. Physically, patient's skin color purple, RR in the high 30s and exhibiting accessory muscle use to breathe while on 15 L nonrebreather. Patient additionally stating I can't do this, oh lord, I can't breathe. Patient immediately placed on bipap at 60% FIO2, oxygen saturation increasing to 98%. Blood pressure 210/152 and HR in the 130s; verbal order from Dr. Pino to initiate nitro drip and obtain EKG. Left AC IV noted to be pulled out with no other IV access available. Emergent central line inserted by Dr. Pino; time out at 0225, line insertion into left groin at 0250. Additional 20 gauge peripheral IV inserted into left hand. See MAR for medication administration.
[2022-07-21 03:59] LABS: NT Pro B Type Natriuretic Pept 989 pg/mL (0-125)
[2022-07-21 04:31] LABS: Glucose Point of Care 233 mg/dL (70-110)
[2022-07-21] MEDS: acetaminophen 325 mg Tablet 650 MG PO (04:31)
--- NOTE | 2022-07-21 04:40 | PC.NURSE ---
Fever Patient found to have fever of 101.8 at 0400. Patient's legs bright red and warm to touch, the left leg greater than the right. Dr. Pino contacted and order received to obtain blood cultures. Blood cultures obtained yesterday, order verified to obtain second set of blood cultures. Verification received and order placed.
--- NOTE | 2022-07-21 05:26 | ECG_ITS ---
[facility] Test Date: 2022-07-21 Pat Name: Michelle Keita Department: Room: [facility]07 Gender: Female Knowledge Manager: : 1955 Requested By: Henrietta Pino Order Number: [id number] Panchito MD: Maddi Mabry M.D. Measurements Intervals [place] Rate: 95 P: 81 MT: 187 QRS: -2 QRSD: 101 T: 39 QT: 372 QTc: 469 Interpretive Statements SINUS RHYTHM POSSIBLE INFERIOR MYOCARDIAL INFARCTION , PROBABLY OLD [30 ms Q WAVE IN II/aVF] Compared to ECG 07/21/2022 02:15:54 Myocardial infarct finding now present Sinus tachycardia no longer present ST (T wave) deviation no longer present Electronically Signed On 07-21-2022 8:11:23 INVOICE MACHINE OPERATOR by Maddi Mabry M.D. [id number]
[2022-07-21 05:30] LABS: Troponin 5 2HR 42.52 ng/L (0-10)
[2022-07-21 05:36] LABS: Troponin 5 2HR Delta 19.52 ABS# (0-10)
[2022-07-21] MEDS: piperacillin-tazobactam 3.375 GM in sodium chloride 0.9% (plus) 50 ML IV ×3 (05:49→20:05)
[2022-07-21 07:24] LABS: Adenovirus Detected (NOT DETECT); Chlamydia Pneumoniae Not Detected (NOT DETECT); Coronavirus 229E,HKU1,NL63,OC4 Detected (NOT DETECT); Human Metapneumovirus Not Detected (NOT DETECT); Human Rhinovirus/Enterovirus Not Detected (NOT DETECT); Influenza A Not Detected (NOT DETECT); Influenza A H1 Not Detected (NOT DETECT); Influenza A H1-2009 Not Detected (NOT DETECT); Influenza A H3 Not Detected (NOT DETECT); Influenza B Not Detected (NOT DETECT); Mycoplasma Pneumoniae Not Detected (NOT DETECT); Parainfluenza Virus Type 1 Not Detected (NOT DETECT); Parainfluenza Virus Type 2 Not Detected (NOT DETECT); Parainfluenza Virus Type 3 Not Detected (NOT DETECT); Parainfluenza Virus Type 4 Not Detected (NOT DETECT); Respiratory Syncytial Virus A Not Detected (NOT DETECT); Respiratory Syncytial Virus B Not Detected (NOT DETECT); SARS-COV-2 Not Detected (NOT DETECT)
--- NOTE | 2022-07-21 08:10 | ECG_ITS ---
[facility] Test Date: 2022-07-21 Pat Name: Michelle Keita Department: Room: [facility]07 Gender: Female Ops Analyst: : 1955 Requested By: Henrietta Pino Order Number: [id number] Panchito MD: Star Mendoza M.D. Measurements Intervals [place] Rate: 68 P: 68 FL: 209 QRS: -1 QRSD: 103 T: 26 QT: 481 QTc: 513 Interpretive Statements SINUS RHYTHM PROLONGED QT INTERVAL Compared to ECG 07/21/2022 05:26:07 Prolonged QT interval now present Myocardial infarct finding no longer present Electronically Signed On 07-21-2022 16:22:47 MERCHANDISE PRESENTATION MANAGER by Star Mendoza M.D. [id number]
[2022-07-21 08:17] LABS: Glucose Point of Care 280 mg/dL (70-110)
[2022-07-21] MEDS: ALPRAZolam 0.5 mg Tablet 0.25 MG PO ×2 (08:51→17:57)
[2022-07-21] MEDS: levothyroxine 100 mcg Tablet PO (08:52)
[2022-07-21] MEDS: atorvastatin 40 mg Tablet PO (08:52)
[2022-07-21] MEDS: donepezil 5 MG Tablet 10 MG PO (08:52)
[2022-07-21] MEDS: azithromycin 250 mg Tablet 500 MG PO (08:53)
[2022-07-21] MEDS: carvedilol 6.25 mg Tablet PO ×2 (08:53→17:57)
[2022-07-21] MEDS: aspirin 81 mg EC Tablet PO (08:53)
[2022-07-21] MEDS: pantoprazole DR 40 mg Tablet PO (08:53)
[2022-07-21] MEDS: sennosides-docusate Tablet 2 TAB PO (08:54)
[2022-07-21 09:34] LABS: Troponin 5 6HR 50.04 ng/L (0-10)
[2022-07-21 09:45] LABS: Troponin 5 6HR Delta 27.04 ng/L (0-12)
--- NOTE | 2022-07-21 10:17 | PC.CHAP ---
Pastoral Care Encounter/Spiritual Assessment Type of Contact [] Declined lead person visit [] Patient/Family/Request visit [] Outpatient visit [] Follow-up visit [] Physician referral [] Code/Alert [x] Routine visit [] Staff referral [] Actively dying [x] Patient sleeping [] Family support [] [] Out of room [] Palliative care [] [] Receiving care in room [] Pre-surgical visit [] Trauma [] Long length of stay [x] ICU visit [] Other: Relational/Emotional Strength [] Patient feels connected with others/family/visitors/staff [] Distress [] Loneliness/isolation [] Abandonment Spirituality of Patient [] Person of Nida [] Attends Islam of their Nida [] Believes in Prayer [] Reads Bible or Nondenominational materials [] There are Spiritual issues to be addressed Correctional Officer Captain Interventions [x] Prayer [] Active listening [] Non-anxious presence [] Spiritual/emotional support [] Crisis/trauma care [] Spiritual counseling [] Bereavement support [] Provided bereavement packet [] Provided Bible/devotional materials [] Provided toy/stuffed animal, coloring book to patient or family member [] Provided Communion [] Anointing/Calvin [] Salvation [x] Completed spiritual assessment [] Other: Impact on Illness or Injury [] Angry [] Fearful [] Anxious [] Often cries [] Exhaustion [] Unable to work [] Unable to attend advent [] Unable to walk/stand [] Unable to read [] Unable to drive [] Unable to eat/drink [] Unable to sleep [] Unable to be with family [] Patient intubated [] Other: Summary Time spent with patient
--- NOTE | 2022-07-21 10:56 | CT_ITS ---
WS: [id number] CT SINUSES TECHNIQUE: Contrast-enhanced CT of the paranasal sinuses with coronal and sagittal reformatted images . CLINICAL INFORMATION: sinusitis COMPARISON: None. DLP: [id number] scans at [facility] use at least one of these dose optimization techniques: automated e xposure control; mA and/or kV adjustment per patient size (includes targeted exams where dose is matc hed to clinical indication); or iterative reconstruction. FINDINGS: Mastoid air cells well aerated. Normal posterior nasopharynx. Normal parapharyngeal fat. Paranasal si nuses are well aerated. Mild mucosal thickening in the ethmoid air cells. No acute sinusitis. Partially visualized intracranial contents appear normal. Ostiomeatal units are patent. Trace mucosal thickening sphenoid sinuses. CT/CT sinus w con [id number] IMPRESSION: 1. Paranasal sinuses are well aerated. No evidence of acute sinusitis. 2. Slight mucosal thickening ethmoid air cells and sphenoid sinuses. 3. Mastoid air cells are well aerated. Normal posterior nasopharynx. 4. No other significant findings.
--- NOTE | 2022-07-21 10:57 | PM.PN ---
Subjective Subjective: Overnight events noted This morning patient is doing much better Metabolic with BiPAP Patient is stating that she does have BiPAP at home which she uses every night In the daytime she is 3 L She is awake and alert Redness noticed on her cheeks requested CT scan of sinuses Blood pressure stable nitroglycerin drip has been turned off pH has improved no signs of hypercapnia or significant hypoxia Chest x-ray reviewed which is showing pulm edema batwing appearance No active chest pain Currently hemodynamically stable Hdez catheter draining dilute clear urine White count 14 Negative fluid balance Potassium 4.2 No significant delta troponin She has adenovirus and a common cold variant of coronavirus Vitals/I&O/Wt Last Vital Signs Temp 101.8 F H 07/21/22 04:00 Pulse 90 07/21/22 09:00 Resp 18 07/21/22 09:00 BP 123/84 07/21/22 09:00 Pulse Ox 96 07/21/22 09:00 O2 Del Method 07/21/22 09:00 O2 Flow Rate 4 07/21/22 09:00 FiO2 40 07/21/22 08:00 07/20/22 07/21/22 07/21/22 22:59 06:59 14:59 Intake Total 53.25 / 893.25 290 / 290 Output Total 3100 / 6000 2000 / 8000 Balance -3100 / -5160 -1946.75 / -7106.75 290 / 290 Weight last 48 hrs Weight 137.155 kg Weight 131.542 kg Physical Exam Narrative: Patient has a femoral central line Clinical signs of fluid overload Lower extremity swelling significantly improved Hdez catheter draining urine Abdomen distended however soft Awake and alert Currently on 3 L Swelling around her cheeks and nasal area with hyperemia No active signs of meningitis S1, S2 Systolic murmur grade 2/6 Urinary Catheter Management: Hdez: Cath Placed During This Visit: yes Reason for Continuing Indwelling Catheter: Accurate Measurement of Urinary Output in Critically Ill Patients Urinary Catheter Date of Insertion: 07/20/22 Urinary Catheter Time of Insertion: 07:28 Data 07/21/22 02:48 07/21/22 02:48 Micro: Microbiology 07/20/22 07:35 Blood Culture - Preliminary Blood NEGATIVE TO DATE 07/20/22 07:30 Blood Culture - Preliminary Blood NEGATIVE TO DATE 07/21/22 05:00 Blood Culture - Preliminary Blood SPECIMEN COLLECTED 07/21/22 05:05 Blood Culture - Preliminary Blood SPECIMEN COLLECTED A&P Assessment and plan (1) Aortic stenosis: (2) UTI (urinary tract infection): (3) Anasarca: (4) CHF (congestive heart failure): (5) Encephalopathy acute: (6) Altered mental status: (7) Weakness: (8) Acute cystitis: (9) Generalized anxiety disorder: (10) Flash pulmonary edema: (11) Sinusitis: Plan Flash pulm edema Overnight required ICU This most likely related to hypotension, tachycardia with underlying aortic stenosis which caused pulm edema High risk for intubation She did very well with nitroglycerin drip, diuresis and BiPAP This morning she is doing well on 3 L of oxygen Off nitroglycerin drip Adequate diuresis She uses BiPAP every night We will put order in Sinusitis with cellulitis I have requested CT scan of sinuses with contrast She has common cold variant of coronavirus and adenovirus Moderate to severe aortic stenosis She will need outpatient work-up with workers compensation adjuster in [place] She wants to follow-up with her own workers compensation adjuster No active chest pain Diastolic CHF exacerbation EF is preserved As per the patient 3 to 4 years ago her EF was 15% which has improved That is why she is seeing a workers compensation adjuster in [place] Chronic hypoxia uses 3 L and BiPAP at night d UTI: Continue treatment with antibiotic Family updated, daughter is at the bedside Continue ICU management Cardiac diet DVT prophylaxis on board Attestations Medical Necessity Statement*: Plan to discharge her over the weekend if stays clinically stable Coding Level of Care Code 07891 Diagnoses Aortic stenosis I35.0 UTI (urinary tract infection) N39.0 Anasarca R60.1 CHF (congestive heart failure) I50.9 Encephalopathy acute G93.40 Altered mental status R41.82 Weakness R53.1 Acute cystitis N30.00 Generalized anxiety disorder F41.1 Flash pulmonary edema J81.0 Sinusitis J32.9 Time Spent (min) 45
[2022-07-21 11:46] LABS: Glucose Point of Care 348 mg/dL (70-110)
[2022-07-21 13:23] LABS: ABG PCO2 50.5 mmHg (35-45); ABG PH Result 7.48 (7.35-7.45); Alveolar-Arterial Oxygen Gradi 7.5 mmHg (5-10); Arterial Blood Gas Hematocrit 32.1 % (37-47); Base Excess ABG 12.3 mmol/L (-2.0-2.0); Blood Gas Allen Test Pos; Blood Gas Operator Identificat MONRO; Blood Gas Sample Site Radial, left; Blood Gas Sample Type Arterial; Carboxyhemoglobin 1.4 %THgb (0.4-20.1); HCO3 ABG 37.4 mmol/L (22-26); HGB O2 Sat 97.7 % (95-100); Ionized Calcium Level - ABG 1.2 mmol/L (1.1-1.4); Methemoglobin 0.3 % (0.4-1.5); Oxygen Device BIPAP; Oxygen Saturation ABG 99.4; Potassium Level - ABG 3.2 mmol/L (3.5-5.0); Total Hemoglobin 10.5 g/dL (12-16)
[2022-07-21 13:23] LABS: Glucose Point of Care 329 mg/dL (70-110)
--- NOTE | 2022-07-21 13:36 | CT_ITS ---
WS: [id number] CT HEAD TECHNIQUE: Noncontrast CT of the head obtained from the skullbase to the vertex. CLINICAL INFORMATION: ams COMPARISON: CT July 19, 2022 DLP: All CT scans at [facility] use at least one of these dose optimization techniques: automated e xposure control; mA and/or kV adjustment per patient size (includes targeted exams where dose is matc hed to clinical indication); or iterative reconstruction. FINDINGS: No evidence of intracranial hemorrhage or mass effect. Ventricular system and basal cisterns are clarke nt. Mild small vessel changes with moderate parenchymal volume loss. No extra-axial fluid collections . No evidence of mass or mass effect. Paranasal sinuses and mastoid air cells are well aerated. .Normal visualized soft tissues. Normal pos terior nasopharynx. Normal parapharyngeal fat. CT/CT head wo con* [id number] IMPRESSION: 1. No evidence of intracranial hemorrhage or mass effect. 2. Mild small vessel changes with moderate parenchymal volume loss. 3. No acute intracranial findings.
--- NOTE | 2022-07-21 13:55 | PC.NURSE ---
Patient unresponsive to sternal rub, LKW 1100, Glucose 329, taken to CT, Dr. Gao called and notified.
--- NOTE | 2022-07-21 13:58 | ECG_ITS ---
[facility] Test Date: 2022-07-21 Pat Name: Michelle Keita Department: Room: [id number] Gender: Female Electronic Organ Mechanic: : [id number] Requested By: Darrell Gao Order Number: [id number] Panchito MD: Beingno Crandall M.D. Measurements Intervals [place] Rate: 65 P: 73 IA: 217 QRS: -5 QRSD: 109 T: 24 QT: 502 QTc: 524 Interpretive Statements SINUS RHYTHM WITH FIRST DEGREE AV BLOCK PROLONGED QT INTERVAL INTERPRETATION BASED ON A DEFAULT AGE OF 40 YEARS Compared to ECG 07/21/2022 11:23:09 First degree AV block now present Electronically Signed On 07-21-2022 21:58:15 MARRIAGE AND FAMILY TEACHER by Benigno Crandall M.D. [id number] f
[2022-07-21 14:42] LABS: ABG PCO2 51.5 mmHg (35-45); ABG PH Result 7.48 (7.35-7.45); Alveolar-Arterial Oxygen Gradi 8.1 mmHg (5-10); Arterial Blood Gas Hematocrit 31.1 % (37-47); Base Excess ABG 12.8 mmol/L (-2.0-2.0); Blood Gas Allen Test Pos; Blood Gas Operator Identificat MONRO; Blood Gas Sample Site Radial, right; Blood Gas Sample Type Arterial; Carboxyhemoglobin 1.5 %THgb (0.4-20.1); HGB O2 Sat 94.3 % (95-100); Ionized Calcium Level - ABG 1.2 mmol/L (1.1-1.4); Methemoglobin 0.4 % (0.4-1.5); Oxygen Device BIPAP; Oxygen Saturation ABG 96.2; PO2 ABG 76.8 mmHg (80.0-100.0); Potassium Level - ABG 3.2 mmol/L (3.5-5.0); Total Hemoglobin 10.1 g/dL (12-16)
--- NOTE | 2022-07-21 16:07 | W.PM.EVENTAC ---
Event Notes Attestations Time Spent in Patient Care: I was called by the ICU nurse to evaluate the patient at bedside for altered mental status Stat ABG revealed metabolic alkalosis Stat CT head showed no signs of hemorrhage or mass effect Patient is moving all of her extremities to painful stimuli Opens eyes to noxious stimuli After 20 to 30 minutes she was able to open her eyes to verbal command She does get startled with painful stimuli Daughter is at the bedside Repeat EKG showing normal sinus rhythm She is showing worsening of metabolic alkalosis Assessment and plan Stroke ruled out This is metabolic alkalosis worsening causing confusion and lethargy She will need acetazolamide, Lasix should be held for at least 48 hours pH is showing metabolic alkalosis with near borderline respiratory compensation We will reevaluate the patient in the evening to decide about intubation if she is not able to protect her airway High blood glucose, will give her gentle fluid hydration We will give her NovoLog 10 units
--- NOTE | 2022-07-21 16:13 | PC.NURSE ---
Report given to ENRIKE Canales.
[2022-07-21] MEDS: sodium chloride 0.9% 1,000 ML 75 ML IV (16:39)
--- NOTE | 2022-07-21 16:46 | PC.NURSE ---
Patient not able to take PO meds at this time. Patient arouses to painful stimuli then goes right back to not arousable.
[2022-07-21] MEDS: acetaZOLAMIDE 250 mg Tablet PO (17:57)
--- NOTE | 2022-07-21 17:59 | PC.NURSE ---
Patient now wide awake, following commands, able to take medications PO and eating dinner. Patient said she was just exhausted and couldn't believe she had slept that hard and for so long.
[2022-07-21] MEDS: lanolin oint 7 gm 1 APPLIC TOPICAL (22:33)
[2022-07-21] MEDS: morphine 4 mg/mL SDV 1 mL 2 MG IVP (22:34)
[2022-07-22] VITALS (51 sets, daily range): BP systolic 110–178; BP diastolic 55–106; PULSE 65–97; RESP 11–29; TEMP 36.6–37.1; O2SAT 89–100
[2022-07-22] MEDS: enoxaparin 40 mg/0.4 mL Syringe SUBCUT (01:54)
[2022-07-22 02:26] LABS: Glucose Point of Care 264 mg/dL (70-110)
--- NOTE | 2022-07-22 02:40 | PC.NURSE ---
Physician Communication MRSA swab collected on 07/21/22 and received by lab at 0554; At 0000 on 07/22/22, MRSA results unavailable. Lab consulted and per optical laboratory technician Gordy, patient is positive for MRSA in the nares. Furthermore, patient's blood sugar was 234 with no insulin sliding scale ordered. Patient also asking for medication to help her rest. Dr. Pino notified of MRSA, blood sugar, and patient request; telephone orders received for IV vancomycin pharmacy to dose and insulin lispro low sliding scale [facility] with first dose now. No other orders received.
[2022-07-22 02:47] LABS: Glucose Point of Care 252 mg/dL (70-110)
--- NOTE | 2022-07-22 02:51 | PC.PHAR ---
Pharmacokinetic dosing service Date: 07/22/2022 Time: 299 Objective: Patient: Michelle Keita Floor: ICU-7 Age: 67 yo Serum creatinine: 0.8 mg/dL Height: 63.0 Inches Weight (kg): 137.155 Diagnosis: Relevant medical/social history: Cultures and sensitivities: Other labs: Assessment: IBW (kg): 52.40 Dosing wt(kg): 86.3 Estimated Creatinine clearance (ml/min): 54.9 CRCL method: Cockcroft and Gault using ibw(default). Drug selected: Vancomycin Loading dose (mg): 0 Vd (liters): 77.7 (factor used: 0.9 L/kg) Antwan (hr-1): 0.050 Half life (hrs): 13.86 Recommended dose: 1500 mg Interval: 18 hrs Infusion time (hrs): 1.5 Predicted peak (mcg/mL): 31.3 Predicted trough (mcg/mL): 13.72 Adjusted body weight was selected for vancomycin dosing. To switch back, select the total body weight option above. Renal function is stable [ ] /unstable [ ] Recommendations: Give Vancomycin 1500 mg q 18 hrs with an expected Cpeak of 31.3 mcg/ml and an expected Ctrough of 13.72 mcg/ml Renal dosing of other antibiotics (review renal dosing of other medications and list guidelines here): Thank you for the consult, will continue to follow. Signature: Helen Chou [facility]
[2022-07-22] MEDS: insulin lispro 100 unit/1 mL SUBCUT ×5 (02:56→21:07)
[2022-07-22] MEDS: vancomycin 1,500 MG/300 ML PIGGYBACK 200 MG IV ×2 (03:03→20:00)
[2022-07-22 04:10] LABS: Basophils # 0.1 10^3/uL (0.0-0.1); Basophils % 0.7 %; Eosinophils # 0.2 10^3/uL (0.0-0.8); Eosinophils % 2.8 %; Hematocrit 32.2 % (37.0-47.0); Hemoglobin 8.9 g/dL (11.5-15.3); Lymphocytes # 1.5 10^3/uL (0.8-4.8); Lymphocytes % 20.2 %; Mean Corpuscular HGB Conc 27.6 g/dL (30.0-36.0); Mean Corpuscular Hemoglobin 21.1 pg (28.0-34.0); Mean Corpuscular Volume 76.5 fl (81-99); Mean Platelet Volume 10.8 fL (7.4-10.4); Monocytes # 0.7 10^3/uL (0.2-0.9); Monocytes % 9.1 %; Neutrophils # 5.01 10^3/uL (1.8-7.7); Neutrophils % 66.8 %; Nucleated Red Blood Cells % 0 %; Platelet Count 178 10^3/cmm (130-400); Red Blood Count 4.21 10^6/uL (4.1-5.3); Red Cell Distribution Width 20.2 % (12.1-15.1); White Blood Count 7.5 10^3/uL (4.0-10.0)
[2022-07-22] MEDS: piperacillin-tazobactam 3.375 GM in sodium chloride 0.9% (plus) 50 ML IV ×3 (04:24→21:07)
[2022-07-22 04:29] LABS: Anion Gap 13.4 (5-19); Blood Urea Nitrogen 23 mg/dL (8-23); Calcium 8.7 mg/dL (8.5-10.5); Carbon Dioxide 32 mmol/L (22-29); Chloride 97 mmol/L (98-107); Glomerular Filtration Rate 62.1 mL/min (90-130); Glucose 217 mg/dL (65-115); Osmolality Calculated 298 mOsm/kg (285-295); Potassium 3.4 mmol/L (3.5-5.1); Sodium 139 mmol/L (136-145)
[2022-07-22] MEDS: morphine 4 mg/mL SDV 1 mL 2 MG IVP (06:39)
[2022-07-22 08:01] LABS: Glucose Point of Care 197 mg/dL (70-110)
[2022-07-22] MEDS: sennosides-docusate Tablet 2 TAB PO (08:52)
[2022-07-22] MEDS: donepezil 5 MG Tablet 10 MG PO (08:52)
[2022-07-22] MEDS: levothyroxine 100 mcg Tablet PO (08:53)
[2022-07-22] MEDS: aspirin 81 mg EC Tablet PO (08:53)
[2022-07-22] MEDS: atorvastatin 40 mg Tablet PO (08:53)
[2022-07-22] MEDS: pantoprazole DR 40 mg Tablet PO (08:53)
[2022-07-22] MEDS: carvedilol 6.25 mg Tablet PO ×2 (08:53→17:30)
[2022-07-22] MEDS: acetaZOLAMIDE 250 mg Tablet PO (08:53)
[2022-07-22] MEDS: azithromycin 250 mg Tablet 500 MG PO (08:54)
[2022-07-22 12:08] LABS: Glucose Point of Care 325 mg/dL (70-110)
--- NOTE | 2022-07-22 12:43 | PM.PN ---
Subjective Subjective: Patient is doing better today Much more awake and alert On 1 to 2 L of nasal cannula Daughter at the bedside Overnight events noted She has been started on vancomycin for gram-positive cocci in clusters Febrile event noted Vitals/I&O/Wt Last Vital Signs Temp 98.7 F 07/22/22 09:00 Pulse 78 07/22/22 11:00 Resp 22 H 07/22/22 11:00 BP 128/77 07/22/22 11:00 Pulse Ox 91 07/22/22 11:00 O2 Del Method 07/22/22 11:00 O2 Flow Rate 1 07/22/22 11:00 FiO2 28 07/22/22 04:00 07/21/22 07/22/22 07/22/22 22:59 06:59 14:59 Intake Total 272 / 562 1080 / 1642 530 / 530 Output Total 1999 / 2899 1000 / 3900 Balance -1728 / -2338 80 / -2258 530 / 530 Physical Exam Narrative: Clinically patient doing much better as compared to yesterday Awake alert Complaining of reproducible chest pain Nonfocal neuro exam Lower extremity no swelling Skin wrinkling noted Abdomen soft S1, S2 systolic murmur Nontender abdomen Urinary Catheter Management: Hdez: Cath Placed During This Visit: yes Reason for Continuing Indwelling Catheter: Accurate Measurement of Urinary Output in Critically Ill Patients Urinary Catheter Date of Insertion: 07/20/22 Urinary Catheter Time of Insertion: 07:28 Data 07/22/22 03:35 07/22/22 03:35 Micro: Microbiology 07/19/22 20:20 Urine Culture - Final Urine,Clean Catch 07/21/22 05:05 Blood Culture - Preliminary Blood NEGATIVE TO DATE 07/21/22 05:00 Blood Culture - Preliminary Blood 07/20/22 07:35 Blood Culture - Preliminary Blood NEGATIVE TO DATE 07/20/22 07:30 Blood Culture - Preliminary Blood NEGATIVE TO DATE A&P Assessment and plan (1) Sinusitis: (2) Flash pulmonary edema: (3) Aortic stenosis: (4) UTI (urinary tract infection): (5) Anasarca: (6) CHF (congestive heart failure): (7) Encephalopathy acute: (8) Altered mental status: (9) Weakness: (10) Acute cystitis: (11) Generalized anxiety disorder: (12) Moderate episode of recurrent major depressive disorder: (13) Alkalosis, metabolic: Plan Acute metabolic encephalopathy related to contraction alkalosis: Improved I would hold acetazolamide Hold diuresis for 1 more day Diastolic congestive heart failure related to tachyarrhythmia and aortic stenosis Patient wants to follow-up with her own bridge club manager in [place] Electrolytes: Replenished patient uses BiPAP every night at home We will request PT evaluation Blood culture positive gram-positive cocci in clusters, started on vancomycin, continue antibiotics Follow-up blood cultures Hyperemia of her cheeks and nose She does have positive blood cultures 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 I have asked nurse to examine her back when she is out of bed to chair flash Pulm edema: Improved with diuresis and BiPAP Full code Cardiac diet DVT prophylaxis on board Disposition: To be decided until we know final blood culture results Hypoxia uses BiPAP at night and 3 L in the daytime Currently on 1 L Daughter at the bedside updated Spoke with the nurse and updated Plan to hold acetazolamide today Requested PT hypokalemia: Repleted Attestations Medical Necessity Statement*: Continue ICU management Coding Level of Care Code 82006 Diagnoses Sinusitis J32.9 Flash pulmonary edema J81.0 Aortic stenosis I35.0 UTI (urinary tract infection) N39.0 Anasarca R60.1 CHF (congestive heart failure) I50.9 Encephalopathy acute G93.40 Altered mental status R41.82 Weakness R53.1 Acute cystitis N30.00 Generalized anxiety disorder F41.1 Moderate episode of recurrent major depressive disorder F33.1 Alkalosis, metabolic E87.3
[2022-07-22] MEDS: potassium chloride ER 20 mEq Tablet 40 MEQ PO (14:08)
[2022-07-22] MEDS: acetaminophen 325 mg Tablet 650 MG PO ×2 (16:32→22:40)
[2022-07-22 17:28] LABS: Glucose Point of Care 297 mg/dL (70-110)
[2022-07-22 21:07] LABS: Glucose Point of Care 325 mg/dL (70-110)
[2022-07-23] VITALS (31 sets, daily range): BP systolic 144–188; BP diastolic 65–105; PULSE 63–87; RESP 13–25; TEMP 36.4–36.9; O2SAT 94–100
[2022-07-23] MEDS: enoxaparin 40 mg/0.4 mL Syringe SUBCUT (02:05)
[2022-07-23 03:54] LABS: Basophils # 0.1 10^3/uL (0.0-0.1); Basophils % 1.2 %; Eosinophils # 0.3 10^3/uL (0.0-0.8); Eosinophils % 5.3 %; Hematocrit 33.9 % (37.0-47.0); Hemoglobin 9.6 g/dL (11.5-15.3); Lymphocytes # 1.6 10^3/uL (0.8-4.8); Lymphocytes % 27.3 %; Mean Corpuscular HGB Conc 28.3 g/dL (30.0-36.0); Mean Corpuscular Hemoglobin 21.7 pg (28.0-34.0); Mean Corpuscular Volume 76.7 fl (81-99); Mean Platelet Volume 10.5 fL (7.4-10.4); Monocytes # 0.6 10^3/uL (0.2-0.9); Monocytes % 10.1 %; Neutrophils # 3.16 10^3/uL (1.8-7.7); Neutrophils % 55.7 %; Nucleated Red Blood Cells % 0 %; Platelet Count 186 10^3/cmm (130-400); Red Blood Count 4.42 10^6/uL (4.1-5.3); Red Cell Distribution Width 20.4 % (12.1-15.1); White Blood Count 5.7 10^3/uL (4.0-10.0)
[2022-07-23 04:17] LABS: Anion Gap 15.8 (5-19); Blood Urea Nitrogen 19 mg/dL (8-23); Carbon Dioxide 25 mmol/L (22-29); Chloride 98 mmol/L (98-107); Glomerular Filtration Rate 71.1 mL/min (90-130); Glucose 197 mg/dL (65-115); Osmolality Calculated 288 mOsm/kg (285-295); Potassium 3.8 mmol/L (3.5-5.1); Sodium 135 mmol/L (136-145)
[2022-07-23] MEDS: acetaminophen 325 mg Tablet 650 MG PO (04:48)
[2022-07-23] MEDS: piperacillin-tazobactam 3.375 GM in sodium chloride 0.9% (plus) 50 ML IV (04:49)
[2022-07-23 07:35] LABS: Glucose Point of Care 213 mg/dL (70-110)
[2022-07-23] MEDS: insulin lispro 100 unit/1 mL SUBCUT ×4 (08:59→21:51)
[2022-07-23] MEDS: ALPRAZolam 0.5 mg Tablet 0.25 MG PO ×2 (08:59→17:57)
[2022-07-23] MEDS: pantoprazole DR 40 mg Tablet PO (09:00)
[2022-07-23] MEDS: aspirin 81 mg EC Tablet PO (09:00)
[2022-07-23] MEDS: donepezil 5 MG Tablet 10 MG PO (09:00)
[2022-07-23] MEDS: carvedilol 6.25 mg Tablet PO ×2 (09:00→17:57)
[2022-07-23] MEDS: atorvastatin 40 mg Tablet PO (09:00)
[2022-07-23] MEDS: levothyroxine 100 mcg Tablet PO (09:00)
[2022-07-23] MEDS: sennosides-docusate Tablet 2 TAB PO (09:02)
--- NOTE | 2022-07-23 09:54 | P.PN_ITS ---
Subjective Subjective: This morning patient is awake and alert. Very communicative She did tell me about her family No overnight events BMP unremarkable Afebrile Blood culture final report is pending Patient will be transferred out of ICU Vitals/I&O/Wt Last Vital Signs Temp 97.9 F 07/23/22 08:30 Pulse 78 07/23/22 09:22 Resp 18 07/23/22 09:22 BP 188/95 07/23/22 09:00 Pulse Ox 96 07/23/22 09:22 O2 Del Method 07/23/22 09:22 O2 Flow Rate 1 07/23/22 09:22 FiO2 28 07/22/22 04:00 07/22/22 07/23/22 07/23/22 22:59 06:59 14:59 Intake Total 890 / 1540 110 / 1650 170 / 170 Output Total 1450 / 1450 2100 / 3550 Balance -560 / 90 -1989 / 0 170 / 170 Physical Exam Narrative: Clinically looks euvolemic No swelling and cheek hyperemia improving Awake and alert No sign of meningitis Nonfocal neuro exam Low extremity swelling improving Hdez catheter in place Abdomen soft S1, S2 Currently on 2 L nasal cannula Right-sided nasal beullae, skin is dried up, no active drainage hyperemia improved Urinary Catheter Management: Hdez: Cath Placed During This Visit: yes Reason for Continuing Indwelling Catheter: Accurate Measurement of Urinary Output in Critically Ill Patients Urinary Catheter Date of Insertion: 07/20/22 Urinary Catheter Time of Insertion: 07:28 Data 07/23/22 02:55 07/23/22 02:55 Micro: Microbiology 07/21/22 05:54 MRSA Culture - Final Nose 07/19/22 20:20 Urine Culture - Final Urine,Clean Catch 07/21/22 05:05 Blood Culture - Preliminary Blood NEGATIVE TO DATE 07/21/22 05:00 Blood Culture - Preliminary Blood A&P Assessment and plan (1) Alkalosis, metabolic: (2) Sinusitis: (3) Flash pulmonary edema: (4) Aortic stenosis: (5) UTI (urinary tract infection): (6) Anasarca: (7) CHF (congestive heart failure): (8) Altered mental status: (9) Encephalopathy acute: (10) Weakness: (11) Acute cystitis: (12) Generalized anxiety disorder: Plan Metabolic encephalopathy related to metabolic alkalosis and UTI: Resolved Sinusitis: Hyperemia around nose and cheeks: Improving Positive blood culture. Please await report of gram-positive cocci she is currently on vancomycin, I will discontinue Zosyn Switch her to p.o. levofloxacin Continue vancomycin until I see final blood culture BiPAP dependent Chronic hypoxia requires 2 to 3 L of oxygen during the daytime and BiPAP at night Metabolic alkalosis improved with acetazolamide Electrolytes: Replenish Patient was asking about her Lyrica and opioids, I did tell her that I am re luctant to add medication which can cause sedation She can get Xanax on as needed basis Hypothyroid continue levothyroxine Continue PT, transfer out of ICU Cardiac diet Patient wants to appoint her daughter as medical DPOA Hyperglycemia, patient takes very high dose of long-acting insulin, will add long-acting insulin We will add Cymbalta at lower dose along with donepezil Plan to discharge her once we know final blood culture results she might need short-term rehab Attestations Medical Necessity Statement*: Transfer out of ICU Coding Level of Care Code 05687 Diagnoses Alkalosis, metabolic E87.3 Sinusitis J32.9 Flash pulmonary edema J81.0 Aortic stenosis I35.0 UTI (urinary tract infection) N39.0 Anasarca R60.1 CHF (congestive heart failure) I50.9 Altered mental status R41.82 Encephalopathy acute G93.40 Weakness R53.1 Acute cystitis N30.00 Generalized anxiety disorder F41.1
[2022-07-23] MEDS: duloxetine 30 mg Capsule PO (10:33)
[2022-07-23 11:25] LABS: Glucose Point of Care 252 mg/dL (70-110)
[2022-07-23] MEDS: hyDRALAzine 20 mg/mL INJ 1 mL 10 MG IVP (11:33)
[2022-07-23] MEDS: TRAMadol 50 mg Tablet PO ×2 (12:54→21:33)
--- NOTE | 2022-07-23 13:01 | PC.SOCIAL ---
IMM Update pg 2 of IMM updated and reviewed w/ patient. Copy provided and Copy dated, initialed and placed in chart.
--- NOTE | 2022-07-23 13:25 | PC.NURSE ---
Transfer Note Patient transferred to [facility] from ICU via bed. Handoff report given to ANGELES Rust. Patient oriented to environment and equipment. Covering service notified. Orders reviewed and will continue to monitor. Family notified. All belongings including phone, surveillance technician, clothes taken with patient and placed at bedside. All questions answered at this time.
[2022-07-23] MEDS: vancomycin 1,500 MG/300 ML PIGGYBACK 200 MG IV (15:33)
[2022-07-23 17:14] LABS: Glucose Point of Care 309 mg/dL (70-110)
[2022-07-23] MEDS: insulin glargine 100 units/1 mL 60 UNIT SUBCUT (21:34)
[2022-07-23 21:43] LABS: Glucose Point of Care 240 mg/dL (70-110)
[2022-07-23] MEDS: efferdent effervescent 1 EACH DENTAL (23:54)
[2022-07-24 01:36] LABS: Glucose Point of Care 204 mg/dL (70-110)
[2022-07-24 02:17] LABS: Blood Urea Nitrogen 13 mg/dL (8-23); Calcium 9.3 mg/dL (8.5-10.5); Carbon Dioxide 22 mmol/L (22-29); Chloride 101 mmol/L (98-107); Glucose 198 mg/dL (65-115); Osmolality Calculated 284 mOsm/kg (285-295); Sodium 134 mmol/L (136-145)
[2022-07-24] MEDS: enoxaparin 40 mg/0.4 mL Syringe SUBCUT (02:38)
[2022-07-24] MEDS: TRAMadol 50 mg Tablet PO ×3 (03:45→17:27)
[2022-07-24 05:31] VITALS: BP 144/81; PULSE 80; RESP 21; TEMP 36.7; O2SAT 94
[2022-07-24] MEDS: levoFLOXacin 750 mg Tablet PO (05:51)
[2022-07-24 06:47] LABS: Glucose Point of Care 239 mg/dL (70-110)
[2022-07-24 08:16] VITALS: BP 149/68; PULSE 77; RESP 18; TEMP 36.6; O2SAT 96
[2022-07-24] MEDS: aspirin 81 mg EC Tablet PO (08:20)
[2022-07-24] MEDS: duloxetine 30 mg Capsule PO (08:20)
[2022-07-24] MEDS: donepezil 5 MG Tablet 10 MG PO (08:20)
[2022-07-24] MEDS: pantoprazole DR 40 mg Tablet PO (08:20)
[2022-07-24] MEDS: atorvastatin 40 mg Tablet PO (08:20)
[2022-07-24] MEDS: levothyroxine 100 mcg Tablet PO (08:20)
[2022-07-24] MEDS: ALPRAZolam 0.5 mg Tablet 0.25 MG PO ×2 (08:20→17:27)
[2022-07-24] MEDS: carvedilol 6.25 mg Tablet PO ×2 (08:20→17:28)
[2022-07-24] MEDS: insulin lispro 100 unit/1 mL SUBCUT ×3 (08:21→17:28)
[2022-07-24] MEDS: vancomycin 1,500 MG/300 ML PIGGYBACK 200 MG IV (08:22)
[2022-07-24 10:18] LABS: Glucose Point of Care 230 mg/dL (70-110)
--- NOTE | 2022-07-24 10:23 | P.DS_ITS ---
Discharge Providers Date of Admission: 07/20/22 07:46 Date of Discharge: July 24, 2022 Attending Provider at Admission: Henrietta Pino MD Attending Provider at Discharge: Darrell Gao MD Primary Care Provider: Summer Strickland DO Diagnoses at Discharge Discharge Diagnosis (1) Alkalosis, metabolic: Status: Acute (2) Sinusitis: Status: Acute (3) Flash pulmonary edema: Status: Acute (4) Aortic stenosis: Status: Acute (5) UTI (urinary tract infection): Status: Acute (6) Anasarca: Status: Acute (7) CHF (congestive heart failure): Status: Acute (8) Altered mental status: Status: Acute (9) Encephalopathy acute: Status: Acute (10) Weakness: Status: Acute (11) Acute cystitis: Status: Acute (12) Generalized anxiety disorder: Status: Acute Reason for Visit Reason for Visit: confusion, weakness Hospital Course Hospital Course 67 female who was admitted for management of metabolic encephalopathy related to cystitis, she did very well within 24 hours she was wide-awake and alert she did very well on BiPAP therapy overnight, on further interview I found out that she is 3 L oxygen dependent at home and uses BiPAP at night, she is taking the musce relaxant and opioids for her back pain as well. During hospitalization she had echo done which showed preserved ejection fraction with moderate to severe aortic stenosis, patient wants to follow-up with her welder oxyhydrogen in [facility]. Patient is stating that she was diagnosed with low EF about 15% few years ago which was nonischemic, then her EF improved that is why she is following up with a welder ox[facility]. Patient suffered with flash pulm edema due to aortic stenosis and tachyarrhythmia, she was transferred to ICU, required BiPAP for quite a while, it took us about 6 to 8 hours in order to get her to wake up, ABG showed metabolic alkalosis Lasix was held and she was given acetazolamide. Blood culture showed contamination, urine culture unremarkable. She finished 4 days of broad-spectrum antibiotics throughout hospitalization. Cultures remain negative. I have prescribed Lasix and potassium supplement at the time of discharge given her referral to see her welder oxyhydrogen in [place]. Her family was kept updated. For high D-dimer PE work-up was pursued which was negative no signs of DVT, CT rule out PE. Signs of UTI improved I have recommended patient to cut back on her opioids and muscle relaxant and k eep in using BiPAP every time she goes to bed or takes a nap. Physical Exam Narrative: Patient is awake and alert Clinically euvolemic Systolic murmur Abdomen soft Nonfocal neuro exam S1, S2 PERRLA, GCS 15 Urinary Catheter Management: Hdez: Cath Placed During This Visit: yes Reason for Continuing Indwelling Catheter: Other Urinary Catheter Date of Insertion: 07/20/22 Urinary Catheter Time of Insertion: 07:28 Discharge Data Studies Completed and Pending Completed Studies During Hospitalization Category Date Time Status CT head wo con* [id number] Routine Cat Scan 07/21/22 13:[address] head wo con* [id number] Stat Cat Scan 07/19/22 18:[address] sinus w con [id number] Stat Cat Scan 07/21/22 10:56 Completed CTA PE [CT angio chest PE protcl [id number]] Routine Cat Scan 07/20/22 10:31 Completed CXRP [XR chest 1V portable [id number]] Stat Exams 07/21/22 02:09 Completed XR chest 1V portable [id number] Stat Exams 07/19/22 18:34 [place] [id number] Routine Ultrasound 07/20/22 06:42 Completed CV. echo complete* [id number] Routine Ultrasound 07/20/22 06:29 Completed Pending at discharge Category Date Time Status Arterial Blood Gas W/O Coox AM LABS Lab 07/24/22 04:00 Ordered Arterial Blood Gas W/O Coox Stat Lab 07/21/22 16:10 Ordered Blood Culture Routine Lab 07/20/22 07:35 Results Blood Culture Stat Lab 07/21/22 05:00 Results Blood Culture Timed Lab 07/24/22 01:37 Results Sputum Culture and Gram Stain Routine Lab 07/20/22 06:40 Uncollected Vancomycin Trough Timed Lab 07/25/22 08:00 Ordered Radiology Impressions Chest CTA 07/20/22 10:31 IMPRESSION: 1. No evidence of pulmonary embolus. 2. No focal pneumonia or pleural fluid. 3. Slight bibasilar atelectasis. Slight atelectasis in the RIGHT middle lobe and RIGHT lower lobe laterally. 4. Partially visualized hepatomegaly and splenomegaly. 5. No other acute findings. Chest X-Ray 07/21/22 02:09 IMPRESSION: 1. Progressive areas of bilateral hazy atelectasis, edema or developing pneumonia with tiny possible effusions. 2. No pneumothorax. Sinuses CT 07/21/22 10:56 IMPRESSION: 1. Paranasal sinuses are well aerated. No evidence of acute sinusitis. 2. Slight mucosal thickening ethmoid air cells and sphenoid sinuses. 3. Mastoid air cells are well aerated. Normal posterior nasopharynx. 4. No other significant findings. Head CT 07/21/22 13:36 IMPRESSION: 1. No evidence of intracranial hemorrhage or mass effect. 2. Mild small vessel changes with moderate parenchymal volume loss. 3. No acute intracranial findings. Laboratory Results WBC 5.7 10^3/uL (4.0-10.0) 07/23/22 02:55 RBC 4.42 10^6/uL (4.1-5.3) 07/23/22 02:55 Hgb 9.6 g/dL (11.5-15.3) L 07/23/22 02:55 Hct 33.9 % (37.0-47.0) L 07/23/22 02:55 MCV 76.7 fl (81-99) L 07/23/22 02:55 MCH 21.7 pg (28.0-34.0) L 07/23/22 02:55 MCHC 28.3 g/dL (30.0-36.0) L 07/23/22 02:55 RDW 20.4 % (12.1-15.1) H 07/23/22 02:55 Plt Count 186 10^3/cmm (130-400) 07/23/22 02:55 MPV 10.5 fL (7.4-10.4) H 07/23/22 02:55 Neut % (Auto) 55.7 % 07/23/22 02:55 Lymph % (Auto) 27.3 % 07/23/22 02:55 [place] % (Auto) 10.1 % 07/23/22 02:55 Eos % (Auto) 5.3 % 07/23/22 02:55 Baso % (Auto) 1.2 % 07/23/22 02:55 Neut # (Auto) 3.16 10^3/uL (1.8-7.7) 07/23/22 02:55 Lymph # (Auto) 1.6 10^3/uL (0.8-4.8) 07/23/22 02:55 [place] # (Auto) 0.6 10^3/uL (0.2-0.9) 07/23/22 02:55 Eos # (Auto) 0.3 10^3/uL (0.0-0.8) 07/23/22 02:55 Baso # (Auto) 0.1 10^3/uL (0.0-0.1) 07/23/22 02:55 Nucleated RBC % (auto) 0 % 07/23/22 02:55 Nucleated RBCs # 0.0 /100WBC 07/23/22 02:55 PT 14.30 SECONDS (12.1-14.9) 07/19/22 18:45 INR 1.08 (0.8-1.2) 07/19/22 18:45 D-Dimer 3.47 ug/mIFEU (0-0.59) H 07/20/22 07:30 Specimen Type Arterial 07/21/22 14:29 Sample Site Radial, right 07/21/22 14:29 ABG pH 7.48 (7.35-7.45) H 07/21/22 14:29 ABG pCO2 51.5 mmHg (35-45) H 07/21/22 14:29 ABG pO2 76.8 mmHg (80.0-100.0) L 07/21/22 14:29 ABG HCO3 38.0 mmol/L (22-26) H 07/21/22 14:29 ABG O2 Saturation 96.2 07/21/22 14:29 ABG Base Excess 12.8 mmol/L (-2.0-2.0) H 07/21/22 14:29 Luis M Test Pos 07/21/22 14:29 A-a O2 Gradient 8.1 mmHg (5-10) 07/21/22 14:29 Hematocrit 31.1 % (37-47) L 07/21/22 14:29 Hgb O2 Saturation 94.3 % (95-100) L 07/21/22 14:29 Carboxyhemoglobin 1.5 %THgb (0.4-20.1) 07/21/22 14:29 Methemoglobin 0.4 % (0.4-1.5) 07/21/22 14:29 Total Hemoglobin 10.1 g/dL (12-16) L 07/21/22 14:29 Sodium 140.0 mmol/L (131-143) 07/21/22 14:29 Potassium 3.2 mmol/L (3.5-5.0) L 07/21/22 14:29 Glucose 279.0 mg/dL (70-115) H 07/21/22 14:29 Ionized Calcium 1.2 mmol/L (1.1-1.4) 07/21/22 14:29 O2 Delivery Device Bipap 07/21/22 14:29 O2 Liters/Min 2.0 % 07/19/22 21:10 FiO2 28.0 % 07/21/22 14:29 Carpenter Maintenance ID [place] 07/21/22 14:29 Sodium 134 mmol/L (136-145) L 07/24/22 01:37 Potassium 4.0 mmol/L (3.5-5.1) 07/24/22 01:37 Chloride 101 mmol/L (98-107) 07/24/22 01:37 Carbon Dioxide 22 mmol/L (22-29) 07/24/22 01:37 Anion Gap 15.0 (5-19) 07/24/22 01:37 BUN 13 mg/dL (8-23) 07/24/22 01:37 Creatinine 0.7 mg/dL (0.5-0.9) 07/24/22 01:37 GFR Calculation 83.0 mL/min (90-130) L 07/24/22 01:37 Glucose 198 mg/dL (65-115) H 07/24/22 01:37 POC Glucose 230 mg/dL (70-110) H 07/24/22 10:14 Calculated Osmolality 284 mOsm/kg (285-295) L 07/24/22 01:37 Lactate 1.1 mmol/L (0.5-2.2) 07/21/22 02:48 Calcium 9.3 mg/dL (8.5-10.5) 07/24/22 01:37 Magnesium 1.9 mg/dL (1.7-2.3) 07/21/22 02:48 Magnesium Cancelled 07/21/22 02:48 Total Bilirubin 0.6 mg/dL (0.15-1.2) 07/21/22 02:48 AST 28 U/L (0-32) 02/10/23 02:48 ALT 22 U/L (0-33) 07/21/22 02:48 Alkaline Phosphatase 139 U/L (35-105) H 07/21/22 02:48 Ammonia 24 umol/L (11-51) 07/19/22 18:45 Troponin T Baseline 23 ng/L (0-10) H 07/21/22 02:48 Troponin T 120 Minute 42.52 ng/L (0-10) H 07/21/22 05:00 Delta Troponin T 19.52 ABS# (0-10) H* 07/21/22 05:00 Troponin T Hi Sens 6Hr 50.04 ng/L (0-10) H 07/21/22 08:54 Troponin T Hi Sens 6Hr Delta 27.04 ng/L (0-12) H* 07/21/22 08:54 NT-Pro-B Natriuret Pep 989 pg/mL (0-125) H 07/21/22 02:48 Total Protein 7.9 g/dL (6.6-8.7) 07/21/22 02:48 Albumin 3.3 g/dL (3.5-5.2) L 07/21/22 02:48 Globulin 4.6 g/dL (1.3-4.6) 07/21/22 02:48 TSH Cancelled 07/20/22 00:56 Urine Color Yellow (Yellow) 07/19/22 20:20 Urine Appearance Hazy (CLEAR) A 07/19/22 20:20 Urine pH 6 (5-7) 07/19/22 20:20 Ur Specific [place] 1.010 (1.005-1.030) 07/19/22 20:20 Urine Protein Trace (Negative) 07/19/22 20:20 Urine Glucose (UA) 4+ (Normal) H 07/19/22 20:20 Urine Ketones 1+ (Negative) H 07/19/22 20:20 Urine Blood 2+ (Negative) H 07/19/22 20:20 Urine Nitrate Negative (Negative) 07/19/22 20:20 Urine Bilirubin Neg (Negative) 07/19/22 20:20 Urine Urobilinogen Norm mg/dL (Negative) 07/19/22 20:20 Ur Leukocyte Esterase 1+ (Negative) H 07/19/22 20:20 Urine RBC 5-10 /hpf (0-2) H 07/19/22 20:20 Urine WBC Too numerous to cnt /hpf (0-5) H 07/19/22 20:20 Ur Squamous Epith Cells 5-10 /hpf (0-5) H 07/19/22 20:20 Amorphous Sediment Not Reportable 07/19/22 20:20 Urine Bacteria 1+ /hpf (NONE) H 07/19/22 20:20 Urine Yeast 1+ /hpf H 07/19/22 20:20 Nasal Influ A H1 2009 PCR Not detected (NOT DETECT) 07/21/22 04:55 Adenovirus (PCR) Detected (NOT DETECT) A 07/21/22 04:55 C. pneumoniae DNA (PCR) Not detected (NOT DETECT) 07/21/22 04:55 Coronavirus 229E (PCR) Detected (NOT DETECT) A 07/21/22 04:55 Human Metapneumovir PCR Not detected (NOT DETECT) 07/21/22 04:55 Influenza A (H1) PCR Not detected (NOT DETECT) 07/21/22 04:55 Influenza A (H3) PCR Not detected (NOT DETECT) 07/21/22 04:55 Influenza Type A Ag negative (Negative) 07/20/22 02:33 Influenza Type A (PCR) Not detected (NOT DETECT) 07/21/22 04:55 Influenza Type B Ag negative (Negative) 07/20/22 02:33 Influenza Type B (PCR) Not detected (NOT DETECT) 07/21/22 04:55 M. pneumoniae (PCR) Not detected (NOT DETECT) 07/21/22 04:55 Parainfluenza 1 (PCR) Not detected (NOT DETECT) 07/21/22 04:55 Parainfluenza 2 (PCR) Not detected (NOT DETECT) 07/21/22 04:55 Parainfluenza 3 (PCR) Not detected (NOT DETECT) 07/21/22 04:55 Parainfluenza 4 (PCR) Not detected (NOT DETECT) 07/21/22 04:55 RSV Type A (PCR) Not detected (NOT DETECT) 07/21/22 04:55 RSV Type B (PCR) Not detected (NOT DETECT) 07/21/22 04:55 Entero/Rhino (PCR) Not detected (NOT DETECT) 07/21/22 04:55 SARS-CoV-2 (PCR) Not detected (NOT DETECT) 07/21/22 04:55 SARS-CoV-2 Ag (Rapid) negative (Negative) 07/20/22 02:34 Vitals Last Vital Signs Temp 97.9 F 07/24/22 08:16 Pulse 77 07/24/22 08:16 Resp 18 07/24/22 08:16 BP 149/68 07/24/22 08:16 Pulse Ox 96 07/24/22 08:16 O2 Del Method 07/24/22 08:16 O2 Flow Rate 1 07/24/22 08:16 FiO2 28 07/23/22 23:00 Discharge Plan Discharge Patient Disposition: Home Health Service Condition: Stable Prescriptions: New Lasix 20 mg tablet 20 mg PO DAILY Qty: 60 3RF potassium chloride 10 mEq tablet extended release 10 meq PO DAILY Qty: 30 0RF Rx Instructions: Only take with Lasix Continued hydrocodone bitartrate 10 mg capsule, oral only, ER 12hr 10 mg PO Q12H aspirin [Adult Aspirin Regimen] 81 mg tablet,delayed release (DR/EC) 81 mg PO DAILY donepezil [Aricept] 10 mg tablet 10 mg PO DAILY levothyroxine 100 mcg tablet 100 mcg PO DAILY duloxetine [Cymbalta] 60 mg capsule,delayed release(DR/EC) 60 mg PO DAILY simvastatin [Zocor] 40 mg tablet 40 mg PO QPM pregabalin [Lyrica] 100 mg capsule 100 mg PO DAILY febuxostat [Uloric] 80 mg tablet 80 mg PO DAILY carvedilol [Coreg] 6.25 mg tablet 6.25 mg PO BID omeprazole 20 mg capsule,delayed release(DR/EC) 20 mg PO DAILY azelastine 137 mcg (0.1 %) aerosol,spray See Rx Instructions .ROUTE .COMPLEX Rx Instructions: intranasally DIRECTED albuterol sulfate 90 mcg/actuation HFA aerosol inhaler 1 puff INHALATION DAILY fluticasone propionate 50 mcg/actuation spray,suspension 1 spray INTRANASAL DAILY insulin lispro 100 unit/mL insulin pen See Rx Instructions .ROUTE .COMPLEX Rx Instructions: subcutaneously DIRECTED PER SLIDING SCALE Lantus Solostar U-100 Insulin 100 unit/mL (3 mL) insulin pen 76 unit SUBCUT BID Trelegy Ellipta 100-62.5-25 mcg blister with device 1 ea INHALATION BID potassium chloride 10 mEq tablet extended release 10 meq PO DAILY Prolia 60 mg/mL syringe See Rx Instructions .ROUTE .COMPLEX Rx Instructions: mg subcutaneously DIRECTED Trulicity 1.5 mg/0.5 mL pen injector 1.5 mg SUBCUT Q7D Rx Instructions: ON SUNDAY calcium carbonate-vitamin D3 600 mg-5 mcg (200 unit) Tablet 1 tab PO DAILY Vitamin C 500 mg Tablet 500 mg PO DAILY Vitamin D3 25 mcg (1,000 unit) Capsule 25 mcg PO DAILY Women's 50 Plus Daily Formula 400 mcg-500 mg calcium-20 mcg Tablet 1 tab PO DAILY Held Glyxambi 25-5 mg tablet 1 tab PO DAILY Hold Instructions: Resume on 07/31/22. pramipexole [Mirapex ER] 1.5 mg tablet extended release 24 hr 1.5 mg PO DAILY Hold Instructions: Resume on 07/26/22. Discontinued alprazolam [Xanax] 0.25 mg tablet 0.25 mg PO BID Discharge Orders: Discharge Order (Routine); Ordered 07/24/22 Ordered By: Darrell Gao Referrals: [facility] [Other] Summer Strickland DO [Primary Care Provider] - 07/28/22 10:00 am Patient Instructions: Furosemide (By mouth) (Lasix), Potassium Chloride (By mouth) (K-Dur, K-Tania, K-Tab, Isreal Mur), Heart Failure (DC), Sinusitis (GEN), Metabolic Alkalosis (GEN), Opioid Safety Discharge Attestations Time Spent in Discharge Care*: less than 30 min Quality Metrics Clinical Quality Measures [ No reported AMI, CVA or VTE this stay] Coding Level of Care Code Acute Code for Chg Fwd Diagnoses Alkalosis, metabolic E87.3 Sinusitis J32.9 Flash pulmonary edema J81.0 Aortic stenosis I35.0 UTI (urinary tract infection) N39.0 Anasarca R60.1 CHF (congestive heart failure) I50.9 Altered mental status R41.82 Encephalopathy acute G93.40 Weakness R53.1 Acute cystitis N30.00 Generalized anxiety disorder F41.1
[2022-07-24 12:26] LABS: Glucose Point of Care 269 mg/dL (70-110)
[2022-07-24 12:30] VITALS: BP 168/73; PULSE 66; RESP 16; TEMP 36.4; O2SAT 96
[2022-07-24 16:53] LABS: Glucose Point of Care 249 mg/dL (70-110)
[2022-07-24 18:17] VITALS: BP 168/73; PULSE 66; RESP 16; TEMP 36.4; O2SAT 96
== END 2022-07-24 18:19 | disposition home health service (06) | DRG 689 ==
LOC: ER 21:28 → MEDSURG 22:11 → ICU 07-21 02:16 → MEDSURG 07-23 13:10
PROVIDERS: Admitting Provider Student in an Organized Health Care Education/Training Program; Emergency Provider Emergency Medicine; PCP Family Medicine; Visit Provider Internal Medicine
DX: N30.00 Acute cystitis without hematuria (principal); G93.41 Metabolic encephalopathy; I50.33 Acute on chronic diastolic (congestive) heart failure; E87.4 Mixed disorder of acid-base balance; F33.9 Major depressive disorder, recurrent, unspecified; Z99.81 Dependence on supplemental oxygen; Z99.89 Dependence on other enabling machines and devices; I35.0 Nonrheumatic aortic (valve) stenosis; Z79.891 Long term (current) use of opiate analgesic; Z79.82 Long term (current) use of aspirin; Z79.51 Long term (current) use of inhaled steroids; Z79.4 Long term (current) use of insulin; Z79.85 Long-term (current) use of injectable non-insulin antidiabetic drugs; J32.9 Chronic sinusitis, unspecified; I11.0 Hypertensive heart disease with heart failure; E11.65 Type 2 diabetes mellitus with hyperglycemia; E11.649 Type 2 diabetes mellitus with hypoglycemia without coma; F41.1 Generalized anxiety disorder; M10.9 Gout, unspecified; E87.6 Hypokalemia; B97.29 Other coronavirus as the cause of diseases classified elsewhere; E66.01 Morbid (severe) obesity due to excess calories; Z68.33 Body mass index [BMI] 33.0-33.9, adult; Z87.891 Personal history of nicotine dependence; Z96.653 Presence of artificial knee joint, bilateral; E03.9 Hypothyroidism, unspecified; E78.5 Hyperlipidemia, unspecified; J44.9 Chronic obstructive pulmonary disease, unspecified; G47.30 Sleep apnea, unspecified; Z88.2 Allergy status to sulfonamides
CPT/HCPCS: 36415; 36416; 36600; 51702; 70450; 70487; 71045; 71275; 80048; 80051; 80053; 81001; 82140; 82330; 82803; 82805; 82962; 83605; 83735; 83880; 84443; 84484; 85025; 85378; 85610; 87040; 87077; 87086; 87186; 87205; 87426; 87486; 87581; 87633; 87641; 87804; 93005; 93306; 93970; 94660; 96365; 96372; 96376; 97110; 97116; 97161; 97530; 99285; G0378; J0360; J0696; J1650; J1720; J1815; J1940; J2270; J2543; J3370; J3490; J7030; Q0144; Q9967

== ENCOUNTER → 2022-10-09 17:31 | Outpatient (BNVA) | payer MEDICARE, MEDICAID, SELFPAY ==
[2022-02-27 15:14] VITALS: BP 139/77; BMI 55.3
== END ==
PROVIDERS: PCP Family Medicine; Visit Provider Nurse Practitioner Family
DX: M00.9 Pyogenic arthritis, unspecified (principal); Z96.652 Presence of left artificial knee joint
CPT/HCPCS: 73560

== ENCOUNTER → 2022-12-26 17:34 | Outpatient (BNVA) | payer MEDICARE, MEDICAID, SELFPAY ==
[2022-02-27 15:14] VITALS: BP 139/77; BMI 55.3
== END ==
PROVIDERS: PCP Family Medicine; Visit Provider Nurse Practitioner Family
DX: M25.562 Pain in left knee (principal); G89.29 Other chronic pain; Z96.652 Presence of left artificial knee joint
CPT/HCPCS: 73564

== ENCOUNTER → 2022-12-29 13:54 | Outpatient (BNVA) | payer MEDICARE, MEDICAID, SELFPAY ==
[2022-02-27 15:14] VITALS: BP 139/77; BMI 55.3
== END ==
PROVIDERS: PCP Family Medicine; Visit Provider Thoracic Surgery (Cardiothoracic Vascular Surgery)
DX: E11.52 Type 2 diabetes mellitus with diabetic peripheral angiopathy with gangrene (principal); L97.822 Non-pressure chronic ulcer of other part of left lower leg with fat layer exposed; Z79.899 Other long term (current) drug therapy
CPT/HCPCS: 11042; 11045; 87070; 87176; 87205; 99213; A6219

== ENCOUNTER → 2023-01-05 14:17 | Outpatient (BNVA) | payer MEDICARE, MEDICAID, SELFPAY ==
[2022-02-27 15:14] VITALS: BP 139/77; BMI 55.3
== END ==
PROVIDERS: PCP Family Medicine; Visit Provider Thoracic Surgery (Cardiothoracic Vascular Surgery)
DX: E11.52 Type 2 diabetes mellitus with diabetic peripheral angiopathy with gangrene (principal); L97.822 Non-pressure chronic ulcer of other part of left lower leg with fat layer exposed
CPT/HCPCS: 11042; 11045; A6220

== ENCOUNTER → 2023-01-10 14:07 | Outpatient (BNVA) | payer MEDICARE, MEDICAID, SELFPAY ==
[2022-02-27 15:14] VITALS: BP 139/77; BMI 55.3
== END ==
PROVIDERS: PCP Family Medicine; Visit Provider Thoracic Surgery (Cardiothoracic Vascular Surgery)
DX: E11.52 Type 2 diabetes mellitus with diabetic peripheral angiopathy with gangrene (principal); L97.822 Non-pressure chronic ulcer of other part of left lower leg with fat layer exposed
CPT/HCPCS: 11042; 11045

== ENCOUNTER 2023-01-31 11:40 | Inpatient (IN) | payer MEDICARE, MEDICAID, SELFPAY ==
[2023-01-24 15:40] VITALS: BP 139/77; BMI 55.3
[2023-01-31 12:46] VITALS: BMI 50.5
--- NOTE | 2023-01-31 13:18 | USCV_ITS ---
Michelle Keita Age: 67 Gender: F : 1955 Exam Date: 01/31/2023 16:03 Ordering Phys: Hayden Smith MD Technologist: Dc Babin [place] [facility] [place] Indication: LT LEG PAIN AND SWELLING PROCEDURES: Venous duplex imaging was performed in only the left lower extremity. The following venous structures were evaluated: common femoral vein, profunda vein, proximal portion of the greater saphenous vein, superficial femoral vein, and the popliteal vein. In addition, the posterior tibial and peroneal trunk were evaluated. FINDINGS: Normal 2-D Doppler and augmentation and compressibility throughout the lower extremity venous structures. Additional imaging through the proximal calf veins also reveals no thrombus. Limited evaluation of the greater saphenous vein is patent with no thrombus. CONCLUSIONS No evidence of left lower extremity DVT. Rob Shore MD (Electronically Signed) Final Date: 31 January 2023 16:25 S
[2023-01-31 13:25] VITALS: BP 121/71; PULSE 99; RESP 18; TEMP 36.9; O2SAT 91
[2023-01-31 13:38] VITALS: O2SAT 93
--- NOTE | 2023-01-31 13:46 | P.HP_ITS ---
Providers/Chief Complaint Admitting Physician: Hayden Smith MD Primary Care Provider: Summer Strickland DO Chief Complaint: cellultis and Infected knee joint History of Present Illness Michelle Keita is a 67 year old female with a past medical history of left knee replacement with history of prosthetic knee infection, with replacement, history of COPD, history of CHF, history of type 2 diabetes mellitus, history of aortic stenosis, who presents to [facility] due to drainage from his left knee, from wound care. Patient tells me that roughly in 2014, she had a knee replacement, subsequently after her knee replacement, she had some drainage from her left knee, cultures grew MRSA, she saw Dr. Hui in [place], who did her knee replacement, she subsequently had her knee replacement removed, had an antibiotic spacer, for 6 months, received IV antibiotics, then subsequently had a new prosthesis put in her knee, she tells me that they had to chip away at some of her bone, so her left leg is shorter than the right. Since then she has been doing okay, when back in July 2021, she had an overdose of a fentanyl patch, ended up in [facility], and from there she have to go to a retirement facility. At the retirement facility she tells me that there was an event in which she was wheelchair-bound, and she was being pushed by one of the nursing aides, and her left leg and left knee got caught under the wheelchair and she started to develop significant pain in the left knee. She has been dealing with severe pain in her left knee, so she saw Dr. Srtickland, according to patient, Dr. De Leon had recommended a left knee injection, so she had a left knee injection 2 times, last injection was in September 2022, after that, she started to notice that she started to develop some drainage from her left knee, she tells me that Dr. De Leon had an put a needle into her knee to help drain some of the the fluid from her knee but she did not get much out. She tells me that through wound care, and through Dr. Strickland she is on multiple courses of antibiotics for the last few months, without significant improvement. Currently she has 3 open tracks to have opened up in her left knee, that have been draining pustulant drainage, she has been on antibiotics, she has been following up with wound care. She tells me in the last week or so she has had significant worsening of the pustular drainage from her left knee she has had another sinus tract open up in her left knee, with active drainage, she has developed left leg swelling, erythema, pain, tenderness, does report fevers, chills, no nausea, no vomiting, no abdominal pain. She was seen at wound care today, she had a low-grade fever, 100.3, she was tachycardic to 108, there was concerns for deep tissue infection, she was seen by Dr. Chisholm, who recommended patient be evaluated here at [facility] Upon evaluation of the left knee joint, left leg, it is red hot swollen -She has 3 open areas of drainage -1 open area of drainage, just above the superior patella, measuring 3 x 4 cm with active purulent drainage -1 open area of drainage, measuring 2 x 2 cm, round, packed, with active drainage, inferior and medial to the knee joint -Second open area of drainage, 2 x 2 cm, packed, lateral to the knee joint with active drainage -Knee is red hot swollen, erythema, extending down to the level ankle -I was upfront and honest with patient, I am worried that this is a prosthetic knee joint infection and deep tissue infection -As she is already had a prosthetic knee infection in the past, now has had steroid injections into the prosthetic knee, now with significant erythema, swelling, with active purulent drainage from 3 different open tracks in her knee, this is very suspicious that this is a deep tissue and prosthetic knee infection -Unfortunately IV antibiotics will only be a temporary solution, and will not get rid of the biofilms around the prosthetic knee infection -She is likely going to have the prosthetic knee removed will need a spacer we will need prolonged antibiotic therapy will need to have infectious disease consultation, orthopedic service consultation will need plastics -I am going to order blood work, an MRI, and start her on broad-spectrum antibiotic therapy vancomycin, Zosyn -I spoke to orthopedic service, they recommended transfer to tertiary level center or where patient had original left knee replacement -Given the complicated nature of her case, I have spoken to [facility] for transfer, awaiting a callback -I spoke in detail with patient about the transfer she is agreeable Review of Systems Const: Reports: chills; Denies: fever(s) Eyes: Denies: change in vision ENMT: Denies: throat pain Card: Denies: chest pain Resp: Denies: dyspnea GI: Denies: abdominal pain : Denies: flank pain or difficulty voiding Musc: Reports: extremity pain, extremity swelling, joint redness and joint warmth; Denies: neck pain or back pain Skin/Breast: Denies: rash Neuro: Denies: headache(s) Psych: Denies: anxiety Medications/Allergies Home Medications Medication Instructions Recorded Confirmed Last Taken Type aspirin 81 mg tablet,delayed 81 mg PO DAILY 10/08/19 11/27/22 Unknown History release (Adult Aspirin Regimen) carvedilol 6.25 mg tablet (Coreg) 6.25 mg PO BID 10/08/19 11/27/22 Unknown History duloxetine 60 mg capsule,delayed 60 mg PO DAILY 10/08/19 11/27/22 Unknown History release (Cymbalta) empagliflozin 25 mg-linagliptin 5 1 tab PO DAILY 10/08/19 11/27/22 Unknown History mg tablet (Glyxambi) febuxostat 80 mg tablet (Uloric) 80 mg PO DAILY 10/08/19 11/27/22 Unknown History levothyroxine 100 mcg tablet 100 mcg PO DAILY 10/08/19 11/27/22 Unknown History omeprazole 20 mg capsule,delayed 20 mg PO DAILY 10/08/19 11/27/22 Unknown History release pramipexole 1.5 mg tablet,extended 1.5 mg PO DAILY 10/08/19 11/27/22 Unknown History release 24 hr (Mirapex ER) simvastatin 40 mg tablet (Zocor) 40 mg PO QPM 10/08/19 11/27/22 Unknown History albuterol sulfate 90 mcg/actuation 1 puff inhalation DAILY 07/20/22 11/27/22 Unknown History aerosol inhaler ascorbic acid (vitamin C) 500 mg 500 mg PO DAILY 07/20/22 11/27/22 Unknown History tablet (Vitamin C) azelastine 137 mcg (0.1 %) nasal See Rx Instructions .Route .COMPLEX 07/20/22 11/27/22 Unknown History spray aerosol calcium carbonate 600 mg-vitamin 1 tab PO DAILY 07/20/22 11/27/22 Unknown History D3 5 mcg (200 unit) tablet cholecalciferol (vitamin D3) 25 25 mcg PO DAILY 07/20/22 11/27/22 Unknown History mcg (1,000 unit) capsule (Vitamin D3) denosumab 60 mg/mL subcutaneous See Rx Instructions .Route .COMPLEX 07/20/22 11/27/22 Unknown History syringe (Prolia) dulaglutide 1.5 mg/0.5 mL 1.5 mg SUBCUT Q7D 07/20/22 11/27/22 Unknown History subcutaneous pen injector (Trulicity) fluticasone fur. 100 mcg-umeclid 1 ea inhalation BID 07/20/22 11/27/22 Unknown History 62.5 mcg-vilant 25 mcg inhalat.powder (Trelegy Ellipta) fluticasone propionate 50 1 spray intranasal DAILY 07/20/22 11/27/22 Unknown History mcg/actuation nasal spray,suspension insulin glargine 100 unit/mL (3 76 unit SUBCUT BID 07/20/22 11/27/22 Unknown History mL) subcutaneous pen (Lantus Solostar U-100 Insulin) insulin lispro 100 unit/mL See Rx Instructions .Route .COMPLEX 07/20/22 11/27/22 Unknown History subcutaneous pen rynchxhu-ego-qkinw ac 400 1 tab PO DAILY 07/20/22 11/27/22 Unknown History mcg-calcium carb 500 mg-vit K1 20 mcg tablet (Women's 50 Plus Daily Formula) potassium chloride 10 mEq 10 meq PO DAILY 07/20/22 11/27/22 Unknown History tablet,extended release potassium chloride 10 mEq 10 meq PO DAILY #30 tabs 07/24/22 11/27/22 Unknown Rx tablet,extended release Saccharomyces boulardii 250 mg 250 mg PO BID 09/27/22 11/27/22 Unknown History capsule (Daily Probiotic (S. boulardii)) celecoxib 100 mg capsule (Celebrex) 100 mg PO DAILY 09/27/22 11/27/22 Unknown History cetirizine 10 mg tablet (Zyrtec) 10 mg PO DAILY 09/27/22 11/27/22 Unknown History docusate sodium 100 mg capsule 100 mg PO BID 09/27/22 11/27/22 Unknown History (Colace) furosemide 20 mg tablet (Lasix) 40 mg PO DAILY 09/27/22 11/27/22 Unknown History guaifenesin 600 mg tablet, 600 mg PO BID 09/27/22 11/27/22 Unknown History extended release 12 hr (Mucinex) omega 7-vri-pqc-fish oil 100 cap PO 09/27/22 11/27/22 Unknown History mg-160 mg-1,000 mg capsule (Fish Oil) pregabalin 100 mg capsule (Lyrica) 50 mg PO BID 09/27/22 11/27/22 Unknown History tramadol 50 mg tablet 100 mg PO TID 09/27/22 11/27/22 Unknown History buspirone 30 mg tablet 30 mg PO BID PRN anxiety 30 days 11/27/22 11/27/22 Unknown Rx #60 tabs hydrocodone 5 mg-acetaminophen 325 1 tab PO Q8H PRN pain 7 days #20 12/29/22 12/29/22 Unknown Rx mg tablet tabs linezolid 600 mg tablet 600 mg PO BID #14 tabs 12/29/22 12/29/22 Unknown Rx amoxicillin 500 mg-potassium 1 tab PO BID #20 tabs 01/05/23 01/05/23 Unknown Rx clavulanate 125 mg tablet (Augmentin) Allergies Allergy/AdvReac Type Severity Reaction Status Date / Time lisinopril Allergy Severe kidney Verified 11/27/22 13:47 failure Sulfa (Sulfonamide Allergy Intermediate ALGY-Rash Verified 11/27/22 13:47 Antibiotics) grass pollen Allergy Mild It's just Verified 11/27/22 13:47 a mild allergy. PHILIP Inhibitors Allergy Unknown Unverified 01/09/23 20:39 allopurinol Allergy Unknown Unverified 01/09/23 20:39 Beta-Blockers Allergy Unknown Unverified 01/09/23 20:39 (Beta-Adrenergic Bloc [Beta-Blockers (Beta-Adrenergic Blocking Agts)] nickel Allergy Unknown Unverified 01/09/23 20:39 polyethylene glycol 3350 AdvReac Mild ADR-Nausea Verified 11/27/22 13:47 [From Miralax] angiotensin receptor Allergy Unknown Uncoded 01/12/23 17:05 antagonists PFSH Acute PFSH: Medical History (Updated 01/31/23 @ 14:05 by Hayden Smith MD) Acute cystitis Alkalosis, metabolic Altered mental status Anasarca Aortic stenosis CHF (congestive heart failure) CHF (congestive heart failure) COPD (chronic obstructive pulmonary disease) Diabetes Encephalopathy acute Flash pulmonary edema Generalized anxiety disorder Hyperlipidemia Hypertension Hypothyroid Moderate episode of recurrent major depressive disorder Psychiatric care Sinusitis Sleep apnea UTI (urinary tract infection) Weakness Surgical History H/O carpal tunnel repair H/O total knee replacement lt x2 rt x 1 History of cholecystectomy History of neck surgery Family History Other Cancer Diabetes Hypertension Hypothyroidism Social History Smoking and tobacco status: former smoker Quit status (tobacco): has quit using tobacco Year quit tobacco: 2009 Alcohol intake: never Substance/Drug Use: never Adopted: No Caregiver/support person: Yes (sets up medication and vital signs and an aide that comes in and helps out) Lives independently: Yes Household members: children Housing: Apartment Marital status: Number of children: 3 Number of grandchildren: 6 Highest education level completed: Some College, No Degree Current occupational status: disabled Current occupation: disability since 1992 Pets and animals: No Leisure activites: other Leisure activities details: watch TV Do you think of yourself as: Straight/Heterosexual Current gender identity: Female Nida/Jew: Muslim Special nida needs: No Agree to transfusion: Yes Financial difficulty paying for basics: Somewhat Hard Female Reproductive History: Para: 3 Vitals/I&O/Wt Last Vital Signs Temp 98.4 F 01/31/23 13:25 Pulse 99 01/31/23 13:25 Resp 18 01/31/23 13:25 BP 121/71 01/31/23 13:25 Pulse Ox 93 01/31/23 13:38 O2 Del Method Room Air 01/31/23 13:38 Weight last 48 hrs Weight 133.492 kg Physical Exam Const: COMMON NORMALS: no acute distress and patient oriented x3 GENERAL APPEARANCE: cooperative, well kempt and well developed HENMT: COMMON NORMALS: normocephalic and Normal external nose present HEAD & SCALP: normocephalic FACE & SINUS: normal facial exam NOSE: Normal external nose present Eye: COMMON NORMALS: Equal, round and reactive pupils present and conjunctivae normal CONJUNCTIVA: Yes conjunctivae normal Neck/C-Spine: COMMON NORMALS: full ROM, no lymphadenopathy, no JVD and No carotid bruits Chest: COMMONS NORMALS: normal inspection of the chest Resp: COMMON NORMALS: normal respiratory effort, No retractions, No use of accessory muscles and clear to auscultation bilaterally AUSCULTATION: clear to auscultation bilaterally Cardio: COMMON NORMALS: regular rate, regular rhythm, S1 normal heart sound present, S2 normal heart sound present, No murmurs present (Cardio) and Peripheral pulses 2+ throughout RATE: regular rate RHYTHM: regular rhythm HEART SOUNDS: S1 normal heart sound present and S2 normal heart sound present PERIPHERAL PULSES: Peripheral pulses 2+ throughout GI: COMMON NORMALS: Normal to inspection, nondistended, normoactive bowel sounds present, Soft to palpation and non-tender : BLADDER/KIDNEY EXAM: Yes no CVA tenderness Back/Pelvis: COMMON NORMALS: no CVA tenderness Extremity: NARRATIVE EXTREMITY EXAM: - Left knee joint erythematous, swelling, -Left calf erythema, swelling, up to the level ankle -She has 3 open areas of drainage -1 open area of drainage, just above the superior patella, measuring 3 x 4 cm with active purulent drainage -1 open area of drainage, measuring 2 x 2 cm, round, packed, with active drainage, inferior and medial to the knee joint -Second open area of drainage, 2 x 2 cm, packed, lateral to the knee joint with active drainage -Knee is red hot swollen, erythema, extending down to the level ankle Neuro: COMMON NORMALS: patient oriented x3, CN's II-XII intact bilaterally, moves all extremities, no focal motor deficits and no sensory deficits noted MENINGEAL SIGNS: Yes no meningeal signs Psych: COMMON NORMALS: mental status grossly normal, Normal thought process present, cooperative and speech normal APPEARANCE: Yes well kempt SPEECH: Yes normal speech THOUGHT PROCESS: Normal thought process present Skin: COMMON NORMALS: turgor normal and no jaundice GENERAL SKIN EXAM: turgor normal A&P Assessment and plan (1) Infected prosthetic knee joint: (2) Cellulitis: (3) Insulin dependent type 2 diabetes mellitus: (4) CHF (congestive heart failure): (5) COPD (chronic obstructive pulmonary disease): (6) Hyperlipidemia: (7) Hypertension: (8) Hypothyroid: (9) Left leg swelling: (10) Chronic respiratory failure: (11) Abscess: Plan Prosthetic left knee joint infection -Has 3 open areas of active drainage, in the left knee, seem like sinus tract, concerns that they might be concurrent with her prosthetic knee -With significant erythema, swelling of left knee extending down to the level ankle -Concern for deep tissue infection, underlying abscess, prosthetic left knee joint infection Plan -CBC, CMP, Pro-Kurt, CRP, sed rate, blood cultures -We will order MRI however she will likely need a bone scan -If she still here we will order a bone scan -Start vancomycin, Zosyn -Start her insulin therapy Lantus 50 units twice daily, low-dose sliding scale -Her left calf is swollen, venous ultrasound for DVT -Wound care for now -I have consulted Dr. Staton, recommendations greatly appreciated -She has chronic respiratory failure, continue home BiPAP -Tentatively we will keep her n.p.o. -Pain control with hydrocodone -Lovenox for DVT prophylaxis -Full code Attestations Medical Necessity Statement*: Patient requires hospitalization, inpatient, greater than 2 midnights, for prosthetic left knee joint infection, with concerns for deep tissue infection, cellulitis, requiring IV antibiotics, surgical consultation, transfer to tertiary level center Diagnoses 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
[2023-01-31 14:32] LABS: Basophils # 0.1 10^3/uL (0.0-0.1); Basophils % 0.7 %; Eosinophils # 0.3 10^3/uL (0.0-0.8); Eosinophils % 2.5 %; Hematocrit 35.6 % (36-47); Lymphocytes # 1.4 10^3/uL (0.8-4.8); Lymphocytes % 13.4 %; Mean Corpuscular HGB Conc 29.8 g/dL (30-55); Mean Corpuscular Hemoglobin 23.6 pg (27-33); Mean Corpuscular Volume 79.3 fl (85-98); Mean Platelet Volume 10.2 fL (7.4-10.4); Monocytes % 8.8 %; Neutrophils # 7.99 10^3/uL (1.8-7.7); Neutrophils % 74.1 %; Nucleated Red Blood Cells % 0 %; Platelet Count 184 10^3/cmm (157-399); Red Blood Count 4.49 10^6/uL (3.85-5.65); Red Cell Distribution Width 19.8 % (12.1-15.1); White Blood Count 10.78 10^3/uL (3.29-11.43)
[2023-01-31 14:35] LABS: Erythrocyte Sedimentation Rate 92 mm/hr (0-15)
[2023-01-31 14:45] LABS: Estmated Average Glucose 163; Hemoglobin A1C 7.3 % (4.0-6.0)
[2023-01-31 14:47] LABS: INR 1.06 (0.8-1.2)
[2023-01-31 14:51] LABS: Lactic Sepsis W/Reflex 1.2 mmol/L (0.5-2.2)
[2023-01-31 15:16] LABS: NT Pro B Type Natriuretic Pept 292 pg/mL (0-125); Thyroid Stimulating Hormone 1.01 uIU/mL (0.27-4.20)
[2023-01-31 15:27] LABS: Alanine Aminotransferase 15 U/L (0-33); Albumin Level 3.1 g/dL (3.5-5.2); Alkaline Phosphatase 125 U/L (35-105); Anion Gap 14.2 (5-19); Aspartate Amino Transferase 21 U/L (0-32); Blood Urea Nitrogen 39 mg/dL (8-23); C Reactive Protein 36.8 mg/L (0.0-4.9); Calcium 8.9 mg/dL (8.5-10.5); Carbon Dioxide 27 mmol/L (22-29); Chloride 99 mmol/L (98-107); Chol HDL Ratio 2.51 mg/dL (0.0-4.40); Cholesterol 103 mg/dL (0-200); Creatine Phosphokinase 56 U/L (26-192); Globulin 4.8 g/dL (1.3-4.6); Glucose 211 mg/dL (65-115); HDL Cholesterol 41 mg/dL (60-100); LDL Cholesterol Calculated 41 mg/dL (50-129); Osmolality Calculated 296 mOsm/kg (285-295); Phosphorus 3.5 mg/dL (2.5-4.5); Potassium 5.2 mmol/L (3.5-5.1); Sodium 135 mmol/L (136-145); Total Bilirubin 0.3 mg/dL (0.15-1.2); Total Protein 7.9 g/dL (6.6-8.7); Triglycerides 107 mg/dL (0-150)
[2023-01-31] MEDS: enoxaparin 40 mg/0.4 mL Syringe SUBCUT (15:36)
[2023-01-31] MEDS: pantoprazole 40 mg SDV IVP (15:36)
[2023-01-31] MEDS: vancomycin 2,000 MG/400 ML PIGGYBACK 200 MG IV (15:38)
[2023-01-31 15:39] LABS: Magnesium 2.1 mg/dL (1.7-2.3)
[2023-01-31] MEDS: sodium chloride 0.9% 1,000 ML 75 ML IV (15:40)
[2023-01-31 16:00] VITALS: BP 112/57; PULSE 98; RESP 18; TEMP 37.2; O2SAT 91
--- NOTE | 2023-01-31 17:19 | P.TS_ITS ---
Transfer Summary Providers Date of Admission: 01/31/23 11:40 Date of Discharge/Transfer: 01/31/23 Attending Provider at Admission: Hayden Smith MD Attending Provider at Transfer: Hayden Smith MD Primary Care Provider: Summer Strickland DO Transfer Plans: Anticipated date of transfer: 01/31/23 . Diagnoses at Discharge Discharge Diagnosis (1) Infected prosthetic knee joint: Status: Acute (2) Cellulitis: Status: Acute (3) Insulin dependent type 2 diabetes mellitus: Status: Acute (4) CHF (congestive heart failure): Status: Acute (5) COPD (chronic obstructive pulmonary disease): Status: Acute (6) Hyperlipidemia: Status: Acute (7) Hypertension: Status: Acute (8) Hypothyroid: Status: Acute (9) Left leg swelling: Status: Acute (10) Chronic respiratory failure: Status: Acute (11) Abscess: Status: Acute Reason for Visit Reason for Visit cellultis and Infected knee joint Hospital Course Hospital Course Michelle Keita is a 67 year old female with a past medical history of left knee replacement with history of prosthetic knee infection, with replacement, history of COPD, history of CHF, history of type 2 diabetes mellitus, history of aortic stenosis, who presents to [facility] due to drainage from his left knee, from wound care.? Patient tells me that roughly in 2014, she had a knee replacement, subsequently after her knee replacement, she had some drainage from her left knee, cultures grew MRSA, she saw Dr. Hui in [place], who did her knee replacement, she subsequently had her knee replacement removed, had an antibiotic spacer, for 6 months, received IV antibiotics, then subsequently had a new prosthesis put in her knee, she tells me that they had to chip away at some of her bone, so her left leg is shorter than the right.? Since then she has been doing okay, when back in July 2021, she had an overdose of a fentanyl patch, ended up in [facility], and from there she have to go to a alf facility.? At the alf facility she tells me that there was an event in which she was wheelchair-bound, and she was being pushed by one of the nursing aides, and her left leg and left knee got caught under the wheelchair and she started to develop significant pain in the left knee.? She has been dealing with severe pain in her left knee, so she saw Dr. Strickland, according to patient, Dr. De Leon had recommended a left knee injection, so she had a left knee injection 2 times, last injection was in September 2022, after that, she started to notice that she started to develop some drainage from her left knee, she tells me that Dr. De Leon had an put a needle into her knee to help drain some of the the fluid from her knee but she did not get much out.? She tells me that through wound care, and through Dr. Strickland she is on multiple courses of antibiotics for the last few months, without significant improvement.? Currently she has 3 open tracks to have opened up in her left knee, that have been draining pustulant drainage, she has been on antibiotics, she has been following up with wound care.? She tells me? in the last week or so she has had significant worsening of the pustular drainage from her left knee she has had another sinus tract open up in her left knee, with active drainage, she has developed left leg swelling, erythema, pain, tenderness, does report fevers, chills, no nausea, no vomiting, no abdominal pain.? She was seen at wound care today, she had a low-grade fever, 100.3, she was tachycardic to 108, there was concerns for deep tissue infection, she was seen by Dr. Chisholm, who recommended patient be evaluated here at [facility] Upon evaluation of the left knee joint, left leg, it is red hot swollen -She has 3 open areas of drainage -1 open area of drainage, just above the superior patella, measuring 3 x 4 cm wi th active purulent drainage -1 open area of drainage, measuring 2 x 2 cm, round, packed, with active drainage, inferior and medial to the knee joint -Second open area of drainage, 2 x 2 cm, packed, lateral to the knee joint with active drainage -Knee is red hot swollen, erythema, extending down to the level ankle -I was upfront and honest with patient, I am worried that this is a prosthetic knee joint infection and deep tissue infection -As she is already had a prosthetic knee infection in the past, now has had steroid injections into the prosthetic knee, now with significant erythema, swelling, with active purulent drainage from 3 different open tracks in her knee, this is very suspicious that this is a deep tissue and prosthetic knee infection -Unfortunately IV antibiotics will only be a temporary solution, and will not get rid of the biofilms around the prosthetic knee infection -She is likely going to have the prosthetic knee removed will need a spacer we will need prolonged antibiotic therapy will need to have infectious disease consultation, orthopedic service consultation will need plastics -I am going to order blood work, an MRI, and start her on broad-spectrum antibiotic therapy vancomycin, Zosyn -I spoke to orthopedic service, they recommended transfer to tertiary level center or where patient had original left knee replacement -Given the complicated nature of her case, I have spoken to [facility] for transfer, awaiting a callback -I spoke in detail with patient about the transfer she is agreeable Prosthetic left knee joint infection -Has 3 open areas of active drainage, in the left knee, seem like sinus tract, concerns that they might be concurrent with her prosthetic knee -With significant erythema, swelling of left knee extending down to the level ankle -Concern for deep tissue infection, underlying abscess, prosthetic left knee joint infection Plan -CBC, CMP, Pro-Kurt, CRP, sed rate, blood cultures -We will order MRI however she will likely need a bone scan -If she still here we will order a bone scan -Start vancomycin, Zosyn -Start her insulin therapy Lantus 50 units twice daily, low-dose sliding scale -Her left calf is swollen, venous ultrasound for DVT -Wound care for now -I have consulted Dr. Staton, recommendations greatly appreciated -She has chronic respiratory failure, continue home BiPAP -Tentatively we will keep her n.p.o. -Pain control with hydrocodone -Lovenox for DVT prophylaxis -Full code Blood work patient's ESR is 92, CRP 36.8, A1c 7.8, Venous ultrasound negative for DVT We will transfer to [facility], accepted by Dr. Katina Thompson Physical Exam Const: COMMON NORMALS: no acute distress and patient oriented x3 Resp: COMMON NORMALS: normal respiratory effort, No retractions, No use of accessory muscles and clear to auscultation bilaterally AUSCULTATION: clear to auscultation bilaterally Cardio: COMMON NORMALS: regular rate, regular rhythm, S1 normal heart sound present and S2 normal heart sound present RATE: regular rate RHYTHM: regular rhythm HEART SOUNDS: S1 normal heart sound present and S2 normal heart sound present GI: COMMON NORMALS: Normal to inspection, nondistended, normoactive bowel sounds present and non-tender Extremity: COMMON NORMALS: no pedal edema Neuro: COMMON NORMALS: patient oriented x3 Psych: COMMON NORMALS: mental status grossly normal TS Data Studies Completed and Pending Pending at discharge Category Date Time Status Blood Culture Stat Lab 01/31/23 14:21 Results C Reactive Protein AM LABS Lab 02/01/23 04:00 Ordered C Reactive Protein AM LABS Lab 02/02/23 04:00 Ordered C Reactive Protein AM LABS Lab 02/03/23 04:00 Ordered Complete Blood Count w/Auto AM LABS Lab 02/01/23 04:00 Ordered Complete Blood Count w/Auto AM LABS Lab 02/02/23 04:00 Ordered Complete Blood Count w/Auto AM LABS Lab 02/03/23 04:00 Ordered Comprehensive Metabolic Panel AM LABS Lab 02/01/23 04:00 Ordered Comprehensive Metabolic Panel AM LABS Lab 02/02/23 04:00 Ordered Comprehensive Metabolic Panel AM LABS Lab 02/03/23 04:00 Ordered Creatine Phosphokinase AM LABS Lab 02/01/23 04:00 Ordered Creatine Phosphokinase AM LABS Lab 02/02/23 04:00 Ordered Creatine Phosphokinase AM LABS Lab 02/03/23 04:00 Ordered Lactate (Lactic Acid level) AM LABS Lab 02/01/23 04:00 Ordered Lactate (Lactic Acid level) AM LABS Lab 02/02/23 04:00 Ordered Lactate (Lactic Acid level) AM LABS Lab 02/03/23 04:00 Ordered MRSA by PCR Stat Lab 01/31/23 13:25 Uncollected Magnesium AM LABS Lab 02/01/23 04:00 Ordered Magnesium AM LABS Lab 02/02/23 04:00 Ordered Magnesium AM LABS Lab 02/03/23 04:00 Ordered Phosphorus AM LABS Lab 02/01/23 04:00 Ordered Phosphorus AM LABS Lab 02/02/23 04:00 Ordered Phosphorus AM LABS Lab 02/03/23 04:00 Ordered Procalcitonin AM LABS Lab 02/01/23 04:00 Ordered Procalcitonin AM LABS Lab 02/02/23 04:00 Ordered Procalcitonin AM LABS Lab 02/03/23 04:00 Ordered Urinalysis Routine Lab 01/31/23 13:25 Uncollected Wound Culture Stat Lab 01/31/23 13:39 Uncollected MR knee LT wo con* [id number] Routine MRI 01/31/23 13:18 Ordered Labs from last 24 hours 01/31/23 01/31/23 01/31/23 14:10 14:10 14:10 WBC RBC Hgb Hct MCV MCH MCHC RDW Plt Count MPV Neut % (Auto) Lymph % (Auto) [place] % (Auto) Eos % (Auto) Baso % (Auto) Neut # (Auto) Lymph # (Auto) [place] # (Auto) Eos # (Auto) Baso # (Auto) Nucleated RBC % (auto) Nucleated RBCs # ESR PT 14.10 INR 1.06 Sodium Potassium Chloride Carbon Dioxide Anion Gap BUN Creatinine GFR Calculation Glucose Estimat Average Glucose 163 Hemoglobin A1c 7.3 H Calculated Osmolality Lactic Acid 1.2 Calcium Phosphorus Magnesium Total Bilirubin AST ALT Alkaline Phosphatase Creatine Kinase C-Reactive Protein NT-Pro-B Natriuret Pep Total Protein Albumin Globulin Triglycerides Cholesterol LDL Cholesterol, Calc HDL Cholesterol LDL/HDL Ratio Cholesterol/HDL Ratio Procalcitonin TSH 01/31/23 01/31/23 14:10 14:10 WBC 10.78 RBC 4.49 Hgb 10.60 L Hct 35.6 L MCV 79.3 L MCH 23.6 L MCHC 29.8 L RDW 19.8 H Plt Count 184 MPV 10.2 Neut % (Auto) 74.1 Lymph % (Auto) 13.4 [place] % (Auto) 8.8 Eos % (Auto) 2.5 Baso % (Auto) 0.7 Neut # (Auto) 7.99 H Lymph # (Auto) 1.4 [place] # (Auto) 1.0 H Eos # (Auto) 0.3 Baso # (Auto) 0.1 Nucleated RBC % (auto) 0 Nucleated RBCs # 0.0 ESR 92 H PT INR Sodium 135 L Potassium 5.2 H Chloride 99 Carbon Dioxide 27 Anion Gap 14.2 BUN 39 H Creatinine 1.0 H GFR Calculation 55.0 L Glucose 211 H Estimat Average Glucose Hemoglobin A1c Calculated Osmolality 296 H Lactic Acid Calcium 8.9 Phosphorus 3.5 Magnesium 2.1 Total Bilirubin 0.3 AST 21 ALT 15 Alkaline Phosphatase 125 H Creatine Kinase 56 C-Reactive Protein 36.8 H NT-Pro-B Natriuret Pep 292 H Total Protein 7.9 Albumin 3.1 L Globulin 4.8 H Triglycerides 107 Cholesterol 103 LDL Cholesterol, Calc 41 L HDL Cholesterol 41 L LDL/HDL Ratio 1.00 Cholesterol/HDL Ratio 2.51 Procalcitonin 0.10 TSH 1.01 Completed Studies During Hospitalization Category Date [place] [id number] Routine Ultrasound 01/31/23 13:18 Completed Laboratory Last Values WBC 10.78 10^3/uL (3.29-11.43) 01/31/23 14:10 RBC 4.49 10^6/uL (3.85-5.65) 01/31/23 14:10 Hgb 10.60 g/dL (11.27-16.99) L 01/31/23 14:10 Hct 35.6 % (36-47) L 01/31/23 14:10 MCV 79.3 fl (85-98) L 01/31/23 14:10 MCH 23.6 pg (27-33) L 01/31/23 14:10 MCHC 29.8 g/dL (30-55) L 01/31/23 14:10 RDW 19.8 % (12.1-15.1) H 01/31/23 14:10 Plt Count 184 10^3/cmm (157-399) 01/31/23 14:10 MPV 10.2 fL (7.4-10.4) 01/31/23 14:10 Neut % (Auto) 74.1 % 01/31/23 14:10 Lymph % (Auto) 13.4 % 01/31/23 14:10 [place] % (Auto) 8.8 % 01/31/23 14:10 Eos % (Auto) 2.5 % 01/31/23 14:10 Baso % (Auto) 0.7 % 01/31/23 14:10 Neut # (Auto) 7.99 10^3/uL (1.8-7.7) H 01/31/23 14:10 Lymph # (Auto) 1.4 10^3/uL (0.8-4.8) 01/31/23 14:10 [place] # (Auto) 1.0 10^3/uL (0.2-0.9) H 01/31/23 14:10 Eos # (Auto) 0.3 10^3/uL (0.0-0.8) 01/31/23 14:10 Baso # (Auto) 0.1 10^3/uL (0.0-0.1) 01/31/23 14:10 Nucleated RBC % (auto) 0 % 01/31/23 14:10 Nucleated RBCs # 0.0 /100WBC 01/31/23 14:10 ESR 92 mm/hr (0-15) H 01/31/23 14:10 PT 14.10 SECONDS (12.1-14.9) 01/31/23 14:10 INR 1.06 (0.8-1.2) 01/31/23 14:10 Sodium 135 mmol/L (136-145) L 01/31/23 14:10 Potassium 5.2 mmol/L (3.5-5.1) H 01/31/23 14:10 Chloride 99 mmol/L (98-107) 01/31/23 14:10 Carbon Dioxide 27 mmol/L (22-29) 01/31/23 14:10 Anion Gap 14.2 (5-19) 01/31/23 14:10 BUN 39 mg/dL (8-23) H 01/31/23 14:10 Creatinine 1.0 mg/dL (0.5-0.9) H 01/31/23 14:10 GFR Calculation 55.0 mL/min (90-130) L 01/31/23 14:10 Glucose 211 mg/dL (65-115) H 01/31/23 14:10 Estimat Average Glucose 163 01/31/23 14:10 Hemoglobin A1c 7.3 % (4.0-6.0) H 01/31/23 14:10 Calculated Osmolality 296 mOsm/kg (285-295) H 01/31/23 14:10 Lactic Acid 1.2 mmol/L (0.5-2.2) 01/31/23 14:10 Calcium 8.9 mg/dL (8.5-10.5) 01/31/23 14:10 Phosphorus 3.5 mg/dL (2.5-4.5) 01/31/23 14:10 Magnesium 2.1 mg/dL (1.7-2.3) 01/31/23 14:10 Total Bilirubin 0.3 mg/dL (0.15-1.2) 01/31/23 14:10 AST 21 U/L (0-32) 01/31/23 14:10 ALT 15 U/L (0-33) 01/31/23 14:10 Alkaline Phosphatase 125 U/L (35-105) H 01/31/23 14:10 Creatine Kinase 56 U/L (26-192) 01/31/23 14:10 C-Reactive Protein 36.8 mg/L (0.0-4.9) H 01/31/23 14:10 NT-Pro-B Natriuret Pep 292 pg/mL (0-125) H 01/31/23 14:10 Total Protein 7.9 g/dL (6.6-8.7) 01/31/23 14:10 Albumin 3.1 g/dL (3.5-5.2) L 01/31/23 14:10 Globulin 4.8 g/dL (1.3-4.6) H 01/31/23 14:10 Triglycerides 107 mg/dL (0-150) 01/31/23 14:10 Cholesterol 103 mg/dL (0-200) 01/31/23 14:10 LDL Cholesterol, Calc 41 mg/dL (50-129) L 01/31/23 14:10 HDL Cholesterol 41 mg/dL (60-100) L 01/31/23 14:10 LDL/HDL Ratio 1.00 RATIO (0.00-3.22) 01/31/23 14:10 Cholesterol/HDL Ratio 2.51 mg/dL (0.0-4.40) 01/31/23 14:10 Procalcitonin 0.10 ng/mL (0-0.5) 01/31/23 14:10 TSH 1.01 uIU/mL (0.27-4.20) 01/31/23 14:10 Recent Clincial Data Last Vital Signs Temp 98.9 F 01/31/23 16:00 Pulse 98 01/31/23 16:00 Resp 18 01/31/23 16:00 BP 112/57 01/31/23 16:00 Pulse Ox 91 01/31/23 16:00 O2 Del Method Room Air 01/31/23 16:00 Vital Signs Temp Pulse Resp BP Pulse Ox O2 Del Method 01/31/23 16:00 98.9 F 98 18 112/57 91 Room Air 01/31/23 16:00 98.9 F 98 18 112/57 91 Room Air 01/31/23 13:38 93 Room Air 01/31/23 13:25 98.4 F 99 18 121/71 91 Room Air 01/31/23 12:46 Room Air Intake & Output/Weight 01/29/23 01/30/23 01/31/23 02/01/23 06:59 06:59 06:59 06:59 Weight 133.492 kg Vitals Last Vital Signs Temp 98.9 F 01/31/23 16:00 Pulse 98 01/31/23 16:00 Resp 18 01/31/23 16:00 BP 112/57 01/31/23 16:00 Pulse Ox 91 01/31/23 16:00 O2 Del Method Room Air 01/31/23 16:00 TS Medications Medications Acetaminophen (Acetaminophen 325 Mg Tablet) 650 mg PO Q6H PRN PRN Reason: Mild/Mod Pain Or Temp >/= 101 Hydrocodone Bitart/Acetaminophen (Hydrocodone-Acetaminophen 5-325 Mg Tablet) 1 tab PO Q4H PRN PRN Reason: MODERATE TO SEVERE PAIN Aspirin (Aspirin 81 Mg Ec Tablet) 81 mg PO DAILY [facility] Atorvastatin Calcium (Atorvastatin 40 Mg Tablet) 20 mg PO QPM [facility] Carvedilol (Carvedilol 6.25 Mg Tablet) 6.25 mg PO BID@0900,2100 [facility] Dextrose (Dextrose 50% Syringe 50 Ml) 50 ml IVP PRN PRN; Protocol PRN Reason: hypoglycemia protocol Dextrose (Dextrose 50% Syringe 50 Ml) 25 ml IVP ONCE PRN; Protocol PRN Reason: hypoglycemia protocol Docusate Sodium (Docusate Sodium 100 Mg Capsule) 100 mg PO BID [facility] Duloxetine HCl (Duloxetine 60 Mg Capsule) 60 mg PO DAILY [facility] Enoxaparin Sodium (Enoxaparin 40 Mg/0.4 Ml Syringe) 40 mg SUBCUT Q24H [facility] Last Admin: 01/31/23 15:36 Dose: 40 mg Glucagon (Glucagon 1 Mg/Ml Inj 1 Ml) 1 mg IM ONCE PRN; Protocol PRN Reason: Adult Acute Hypoglycemia Prot. Sodium Chloride (Sodium Chloride 0.9%) 1,000 mls @ 75 mls/hr IV .[id number] [facility] Last Admin: 01/31/23 15:40 Dose: 75 mls/hr Piperacillin Sod/Tazobactam (Sod 3.375 gm/ Sodium Chloride) 50 mls @ 12.5 mls/hr IV Q8H [facility]; Protocol Dextrose (D5w) 500 mls @ 100 mls/hr IV ONCE PRN; Protocol PRN Reason: Adult Acute Hypoglycemia Prot Vancomycin/PEG/NADA/Lysine/Water (Vancocin) 1,750 mg in 350 mls @ 200 mls/hr IV Q24H [facility] Insulin Glargine (Insulin Glargine 100 Units/1 Ml) 50 unit SUBCUT Q12H [facility] Insulin Human Lispro (Insulin Lispro 100 Unit/1 Ml) 0 unit SUBCUT TIDWM [facility]; Protocol Levothyroxine Sodium (Levothyroxine 100 Mcg Tablet) 100 mcg PO DAILY [facility] Ondansetron HCl (Ondansetron 2 Mg/Ml Sdv 2 Ml) 4 mg IVP Q8H PRN PRN Reason: vomiting, or N/V if npo Pantoprazole Sodium (Pantoprazole 40 Mg Sdv) 40 mg IVP Q24H [facility] Last Admin: 01/31/23 15:36 Dose: 40 mg Pregabalin (Pregabalin 50 Mg Capsule) 50 mg PO BID@0900,2100 [facility] Discontinued Medications Vancomycin HCl / Sodium (Chloride) 250 mls @ 0 mls/hr [id number] PROTOCOL [facility]; Protocol Vancomycin/PEG/NADA/Lysine/Water (Vancocin) 2,000 mg in 400 mls @ 200 mls/hr IV ONCE ONE Stop: 01/31/23 17:14 Last Admin: 01/31/23 15:38 Dose: 200 mls/hr Allergies lisinopril Allergy (Severe, Verified 11/27/22 13:47) kidney failure Sulfa (Sulfonamide Antibiotics) Allergy (Intermediate, Verified 11/27/22 13:47) ALGY-Rash grass pollen Allergy (Mild, Verified 11/27/22 13:47) It's just a mild allergy. I take flonase for it. PHILIP Inhibitors Allergy (Unknown, Unverified 01/09/23 20:39) allopurinol Allergy (Unknown, Unverified 01/09/23 20:39) Beta-Blockers (Beta-Adrenergic Bloc [Beta-Blockers (Beta-Adrenergic Blocking Agts)] Allergy (Unknown, Unverified 01/09/23 20:39) nickel Allergy (Unknown, Unverified 01/09/23 20:39) polyethylene glycol 3350 [From Miralax] Adverse Reaction (Mild, Verified 11/27/22 13:47) ADR-Nausea angiotensin receptor antagonists Allergy (Unknown, Uncoded 01/12/23 17:05) Home Medications aspirin 81 mg tablet,delayed release (Adult Aspirin Regimen) 81 mg PO DAILY 0 10/08/19 [History Confirmed 11/27/22] carvedilol 6.25 mg tablet (Coreg) 6.25 mg PO BID 10/08/19 [History Confirmed 11/27/22] duloxetine 60 mg capsule,delayed release (Cymbalta) 60 mg PO DAILY 10/08/19 [History Confirmed 11/27/22] empagliflozin 25 mg-linagliptin 5 mg tablet (Glyxambi) 1 tab PO DAILY 10/08/19 [History Confirmed 11/27/22] febuxostat 80 mg tablet (Uloric) 80 mg PO DAILY 10/08/19 [History Confirmed 11/27/22] levothyroxine 100 mcg tablet 100 mcg PO DAILY 10/08/19 [History Confirmed 11/27/22] omeprazole 20 mg capsule,delayed release 20 mg PO DAILY 10/08/19 [History Confirmed 11/27/22] pramipexole 1.5 mg tablet,extended release 24 hr (Mirapex ER) 1.5 mg PO DAILY 10/08/19 [History Confirmed 11/27/22] simvastatin 40 mg tablet (Zocor) 40 mg PO QPM 10/08/19 [History Confirmed 11/27/22] albuterol sulfate 90 mcg/actuation aerosol inhaler 1 puff inhalation DAILY 07/20/22 [History Confirmed 11/27/22] ascorbic acid (vitamin C) 500 mg tablet (Vitamin C) 500 mg PO DAILY 07/20/22 [History Confirmed 11/27/22] azelastine 137 mcg (0.1 %) nasal spray aerosol See Rx Instructions .Route .COMPLEX 07/20/22 [History Confirmed 11/27/22] calcium carbonate 600 mg-vitamin D3 5 mcg (200 unit) tablet 1 tab PO DAILY 07/20/22 [History Confirmed 11/27/22] cholecalciferol (vitamin D3) 25 mcg (1,000 unit) capsule (Vitamin D3) 25 mcg PO DAILY 07/20/22 [History Confirmed 11/27/22] denosumab 60 mg/mL subcutaneous syringe (Prolia) See Rx Instructions .Route .COMPLEX 07/20/22 [History Confirmed 11/27/22] dulaglutide 1.5 mg/0.5 mL subcutaneous pen injector (Trulicity) 1.5 mg SUBCUT Q7D 07/20/22 [History Confirmed 11/27/22] fluticasone fur. 100 mcg-umeclid 62.5 mcg-vilant 25 mcg inhalat.powder (Trelegy Ellipta) 1 ea inhalation BID 07/20/22 [History Confirmed 11/27/22] fluticasone propionate 50 mcg/actuation nasal spray,suspension 1 spray intranasal DAILY 07/20/22 [History Confirmed 11/27/22] insulin glargine 100 unit/mL (3 mL) subcutaneous pen (Lantus Solostar U-100 Insulin) 76 unit SUBCUT BID 07/20/22 [History Confirmed 11/27/22] insulin lispro 100 unit/mL subcutaneous pen See Rx Instructions .Route .COMPLEX 07/20/22 [History Confirmed 11/27/22] pnhjthnq-hju-evhba ac 400 mcg-calcium carb 500 mg-vit K1 20 mcg tablet (Women's 50 Plus Daily Formula) 1 tab PO DAILY 07/20/22 [History Confirmed 11/27/22] potassium chloride 10 mEq tablet,extended release 10 meq PO DAILY 07/20/22 [History Confirmed 11/27/22] potassium chloride 10 mEq tablet,extended release 10 meq PO DAILY #30 tabs 07/24/22 [Rx Confirmed 11/27/22] Saccharomyces boulardii 250 mg capsule (Daily Probiotic (S. boulardii)) 250 mg PO BID 09/27/22 [History Confirmed 11/27/22] celecoxib 100 mg capsule (Celebrex) 100 mg PO DAILY 09/27/22 [History Confirmed 11/27/22] cetirizine 10 mg tablet (Zyrtec) 10 mg PO DAILY 09/27/22 [History Confirmed 11/27/22] docusate sodium 100 mg capsule (Colace) 100 mg PO BID 09/27/22 [History Confirmed 11/27/22] furosemide 20 mg tablet (Lasix) 40 mg PO DAILY 09/27/22 [History Confirmed 11/27/22] guaifenesin 600 mg tablet, extended release 12 hr (Mucinex) 600 mg PO BID 09/27/22 [History Confirmed 11/27/22] omega 2-waj-kha-fish oil 100 mg-160 mg-1,000 mg capsule (Fish Oil) cap PO 09/27/22 [History Confirmed 11/27/22] pregabalin 100 mg capsule (Lyrica) 50 mg PO BID 09/27/22 [History Confirmed 11/27/22] tramadol 50 mg tablet 100 mg PO TID 09/27/22 [History Confirmed 11/27/22] buspirone 30 mg tablet 30 mg PO BID PRN anxiety 30 days #60 tabs 11/27/22 [Rx Confirmed 11/27/22] hydrocodone 5 mg-acetaminophen 325 mg tablet 1 tab PO Q8H PRN pain 7 days #20 tabs 12/29/22 [Rx Confirmed 12/29/22] linezolid 600 mg tablet 600 mg PO BID #14 tabs 12/29/22 [Rx Confirmed 12/29/22] amoxicillin 500 mg-potassium clavulanate 125 mg tablet (Augmentin) 1 tab PO BID #20 tabs 01/05/23 [Rx Confirmed 01/05/23] Discharge Plan Discharge Condition: Stable Prescriptions: No Action aspirin [Adult Aspirin Regimen] 81 mg tablet,delayed release (DR/EC) 81 mg PO DAILY levothyroxine 100 mcg tablet 100 mcg PO DAILY duloxetine [Cymbalta] 60 mg capsule,delayed release(DR/EC) 60 mg PO DAILY Glyxambi 25-5 mg tablet 1 tab PO DAILY Hold Instructions: Resume on 07/31/22. simvastatin [Zocor] 40 mg tablet 40 mg PO QPM febuxostat [Uloric] 80 mg tablet 80 mg PO DAILY carvedilol [Coreg] 6.25 mg tablet 6.25 mg PO BID omeprazole 20 mg capsule,delayed release(DR/EC) 20 mg PO DAILY pramipexole [Mirapex ER] 1.5 mg tablet extended release 24 hr 1.5 mg PO DAILY Hold Instructions: Resume on 07/26/22. pregabalin [Lyrica] 100 mg capsule 50 mg PO BID Lasix 20 mg tablet 40 mg PO DAILY celecoxib [Celebrex] 100 mg capsule 100 mg PO DAILY cetirizine [Zyrtec] 10 mg tablet 10 mg PO DAILY Fish Oil 100-160-1,000 mg capsule PO tramadol 50 mg tablet 100 mg PO TID guaifenesin [Mucinex] 600 mg tablet extended release 12hr 600 mg PO BID Saccharomyces boulardii [Daily Probiotic (S. boulardii)] 250 mg capsule 250 mg PO BID docusate sodium [Colace] 100 mg capsule 100 mg PO BID linezolid 600 mg tablet 600 mg PO BID Qty: 14 0RF hydrocodone-acetaminophen 5-325 mg tablet 1 tab PO Q8H PRN (Reason: pain) 7 Days Qty: 20 0RF buspirone 30 mg tablet 30 mg PO BID PRN (Reason: anxiety) 30 Days Qty: 60 3RF amoxicillin-pot clavulanate [Augmentin] 500-125 mg tablet 1 tab PO BID Qty: 20 0RF azelastine 137 mcg (0.1 %) aerosol,spray See Rx Instructions .ROUTE .COMPLEX Rx Instructions: intranasally DIRECTED albuterol sulfate 90 mcg/actuation HFA aerosol inhaler 1 puff INHALATION DAILY fluticasone propionate 50 mcg/actuation spray,suspension 1 spray INTRANASAL DAILY insulin lispro 100 unit/mL insulin pen See Rx Instructions .ROUTE .COMPLEX Rx Instructions: subcutaneously DIRECTED PER SLIDING SCALE Lantus Solostar U-100 Insulin 100 unit/mL (3 mL) insulin pen 76 unit SUBCUT BID Trelegy Ellipta 100-62.5-25 mcg blister with device 1 ea INHALATION BID potassium chloride 10 mEq tablet extended release 10 meq PO DAILY Prolia 60 mg/mL syringe See Rx Instructions .ROUTE .COMPLEX Rx Instructions: mg subcutaneously DIRECTED Trulicity 1.5 mg/0.5 mL pen injector 1.5 mg SUBCUT Q7D Rx Instructions: ON SUNDAY calcium carbonate-vitamin D3 600 mg-5 mcg (200 unit) Tablet 1 tab PO DAILY Vitamin C 500 mg Tablet 500 mg PO DAILY Vitamin D3 25 mcg (1,000 unit) Capsule 25 mcg PO DAILY Women's 50 Plus Daily Formula 400 mcg-500 mg calcium-20 mcg Tablet 1 tab PO DAILY potassium chloride 10 mEq tablet extended release 10 meq PO DAILY Qty: 30 0RF Rx Instructions: Only take with Lasix Discharge Orders: Transfer Out of Facility (Order); Ordered 01/31/23 Ordered By: Hayden Smith Patient Instructions: Opioid Safety Transfer Attestations Time Spent in Transfer Care: greater than 30 min Quality Metrics Clinical Quality Measures [ No reported AMI, CVA or VTE this stay] Coding Level of Care Code Acute Code for Chg Fwd Diagnoses 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
[2023-01-31 17:26] LABS: Glucose Point of Care 151 mg/dL (70-110)
[2023-01-31 19:53] VITALS: BP 112/57; PULSE 98; RESP 18; TEMP 37.2; O2SAT 91
== END 2023-01-31 18:05 | disposition short-term general hospital (02) | DRG 560 ==
PROVIDERS: Admitting Provider Family Medicine; PCP Family Medicine; Visit Provider Family Medicine
DX: T84.54XA Infection and inflammatory reaction due to internal left knee prosthesis, initial encounter (principal); J96.10 Chronic respiratory failure, unspecified whether with hypoxia or hypercapnia; L03.90 Cellulitis, unspecified; Z96.652 Presence of left artificial knee joint; J44.9 Chronic obstructive pulmonary disease, unspecified; E11.8 Type 2 diabetes mellitus with unspecified complications; Z79.4 Long term (current) use of insulin; I11.0 Hypertensive heart disease with heart failure; I50.9 Heart failure, unspecified; E78.5 Hyperlipidemia, unspecified; Z79.82 Long term (current) use of aspirin; Z79.84 Long term (current) use of oral hypoglycemic drugs; Z86.14 Personal history of Methicillin resistant Staphylococcus aureus infection; Z79.85 Long-term (current) use of injectable non-insulin antidiabetic drugs; Y84.8 Other medical procedures as the cause of abnormal reaction of the patient, or of later complication, without mention of misadventure at the time of the procedure
CPT/HCPCS: 36415; 36416; 80053; 80061; 82550; 82962; 83036; 83605; 83735; 83880; 84100; 84145; 84443; 85025; 85610; 85651; 86140; 87040; 87070; 87077; 87176; 87186; 87205; 93971; 94664; 96372; C9113; J1650; J3372; J7030

== ENCOUNTER → 2023-02-07 13:40 | Outpatient (BNVA) | payer MEDICARE, MEDICAID, SELFPAY ==
[2023-01-24 15:40] VITALS: BP 139/77; BMI 55.3
== END ==
PROVIDERS: PCP Family Medicine; Visit Provider Thoracic Surgery (Cardiothoracic Vascular Surgery)
DX: E11.52 Type 2 diabetes mellitus with diabetic peripheral angiopathy with gangrene (principal); L97.822 Non-pressure chronic ulcer of other part of left lower leg with fat layer exposed
CPT/HCPCS: 11042; 97597; A6219; A6253; A6446

== ENCOUNTER → 2023-02-14 13:33 | Outpatient (BNVA) | payer MEDICARE, MEDICAID, SELFPAY ==
[2023-01-24 15:40] VITALS: BP 139/77; BMI 55.3
== END ==
PROVIDERS: PCP Family Medicine; Visit Provider Thoracic Surgery (Cardiothoracic Vascular Surgery)
DX: E11.52 Type 2 diabetes mellitus with diabetic peripheral angiopathy with gangrene (principal); L97.822 Non-pressure chronic ulcer of other part of left lower leg with fat layer exposed
CPT/HCPCS: 11042; 97597; A6219; A6220

== ENCOUNTER 2023-02-14 14:56 | Outpatient (CLI) | payer MEDICARE, OTHER, MEDICAID, SELFPAY ==
[2023-01-24 15:40] VITALS: BP 139/77; BMI 55.3
[2023-02-14 16:02] LABS: Basophils # 0.1 10^3/uL (0.0-0.1); Basophils % 0.6 %; Eosinophils # 0.3 10^3/uL (0.0-0.8); Eosinophils % 3.3 %; Hematocrit 39.4 % (36-47); Lymphocytes # 2.7 10^3/uL (0.8-4.8); Lymphocytes % 27.3 %; Mean Corpuscular HGB Conc 30.5 g/dL (30-55); Mean Corpuscular Hemoglobin 23.9 pg (27-33); Mean Corpuscular Volume 78.3 fl (85-98); Mean Platelet Volume 10.7 fL (7.4-10.4); Monocytes # 0.8 10^3/uL (0.2-0.9); Monocytes % 8.2 %; Neutrophils # 5.83 10^3/uL (1.8-7.7); Neutrophils % 60.1 %; Nucleated Red Blood Cells % 0 %; Platelet Count 210 10^3/cmm (157-399); Red Blood Count 5.03 10^6/uL (3.85-5.65); Red Cell Distribution Width 19.2 % (12.1-15.1); White Blood Count 9.71 10^3/uL (3.29-11.43)
[2023-02-14 16:29] LABS: Blood Urea Nitrogen 50 mg/dL (8-23); Calcium 8.9 mg/dL (8.5-10.5); Carbon Dioxide 24 mmol/L (22-29); Chloride 101 mmol/L (98-107); Glucose 94 mg/dL (65-115); Osmolality Calculated 291 mOsm/kg (285-295); Sodium 134 mmol/L (136-145)
== END 2023-02-14 14:57 | disposition home or self-care (01) ==
LOC: LAB 15:01
PROVIDERS: PCP Family Medicine; Visit Provider Internal Medicine
DX: I50.9 Heart failure, unspecified (principal)
CPT/HCPCS: 36415; 80048; 85025

== ENCOUNTER → 2023-02-21 13:52 | Outpatient (BNVA) | payer MEDICARE, MEDICAID, SELFPAY ==
[2023-01-24 15:40] VITALS: BP 139/77; BMI 55.3
== END ==
PROVIDERS: PCP Family Medicine; Visit Provider Thoracic Surgery (Cardiothoracic Vascular Surgery)
DX: E11.52 Type 2 diabetes mellitus with diabetic peripheral angiopathy with gangrene (principal); L97.822 Non-pressure chronic ulcer of other part of left lower leg with fat layer exposed
CPT/HCPCS: 11042; 97597; A6219

== ENCOUNTER → 2023-02-28 13:04 | Outpatient (BNVA) | payer MEDICARE, MEDICAID, SELFPAY ==
[2023-02-22 14:30] VITALS: BP 112/57; BMI 50.5
== END ==
PROVIDERS: PCP Family Medicine; Visit Provider Nurse Practitioner Family
DX: E11.52 Type 2 diabetes mellitus with diabetic peripheral angiopathy with gangrene (principal); L97.822 Non-pressure chronic ulcer of other part of left lower leg with fat layer exposed
CPT/HCPCS: 11042

== ENCOUNTER → 2023-03-09 14:03 | Outpatient (BNVA) | payer MEDICARE, MEDICAID, SELFPAY ==
[2023-02-22 14:30] VITALS: BP 112/57; BMI 50.5
== END ==
PROVIDERS: PCP Family Medicine; Visit Provider Thoracic Surgery (Cardiothoracic Vascular Surgery)
DX: E11.52 Type 2 diabetes mellitus with diabetic peripheral angiopathy with gangrene (principal); L97.822 Non-pressure chronic ulcer of other part of left lower leg with fat layer exposed
CPT/HCPCS: 11042; 97597; A6219

== ENCOUNTER → 2023-03-21 14:48 | Outpatient (BNVA) | payer MEDICARE, MEDICAID, SELFPAY ==
[2023-02-22 14:30] VITALS: BP 112/57; BMI 50.5
== END ==
PROVIDERS: PCP Family Medicine; Visit Provider Thoracic Surgery (Cardiothoracic Vascular Surgery)
DX: E11.622 Type 2 diabetes mellitus with other skin ulcer (principal); L97.821 Non-pressure chronic ulcer of other part of left lower leg limited to breakdown of skin; L97.822 Non-pressure chronic ulcer of other part of left lower leg with fat layer exposed
CPT/HCPCS: 11042

== ENCOUNTER → 2023-03-28 14:06 | Outpatient (BNVA) | payer MEDICARE, MEDICAID, SELFPAY ==
[2023-02-22 14:30] VITALS: BP 112/57; BMI 50.5
== END ==
PROVIDERS: PCP Family Medicine; Visit Provider Thoracic Surgery (Cardiothoracic Vascular Surgery)
DX: E11.52 Type 2 diabetes mellitus with diabetic peripheral angiopathy with gangrene (principal); E11.622 Type 2 diabetes mellitus with other skin ulcer; L97.821 Non-pressure chronic ulcer of other part of left lower leg limited to breakdown of skin
CPT/HCPCS: 11042; 97597; A6219; A6220

== ENCOUNTER → 2023-04-04 14:57 | Outpatient (BNVA) | payer MEDICARE, MEDICAID, SELFPAY ==
[2023-02-22 14:30] VITALS: BP 112/57; BMI 50.5
== END ==
PROVIDERS: PCP Family Medicine; Visit Provider Nurse Practitioner Family
DX: E11.52 Type 2 diabetes mellitus with diabetic peripheral angiopathy with gangrene (principal); E11.622 Type 2 diabetes mellitus with other skin ulcer; L97.822 Non-pressure chronic ulcer of other part of left lower leg with fat layer exposed
CPT/HCPCS: 11042; A6219

== ENCOUNTER → 2023-04-11 14:05 | Outpatient (BNVA) | payer MEDICARE, MEDICAID, SELFPAY ==
[2023-02-22 14:30] VITALS: BP 112/57; BMI 50.5
== END ==
PROVIDERS: PCP Family Medicine; Visit Provider Thoracic Surgery (Cardiothoracic Vascular Surgery)
DX: E11.52 Type 2 diabetes mellitus with diabetic peripheral angiopathy with gangrene (principal); E11.622 Type 2 diabetes mellitus with other skin ulcer; L97.821 Non-pressure chronic ulcer of other part of left lower leg limited to breakdown of skin
CPT/HCPCS: 11042; 97597

== ENCOUNTER → 2023-04-18 13:53 | Outpatient (BNVA) | payer MEDICARE, MEDICAID, SELFPAY ==
[2023-02-22 14:30] VITALS: BP 112/57; BMI 50.5
== END ==
PROVIDERS: PCP Family Medicine; Visit Provider Thoracic Surgery (Cardiothoracic Vascular Surgery)
DX: E11.52 Type 2 diabetes mellitus with diabetic peripheral angiopathy with gangrene (principal); E11.622 Type 2 diabetes mellitus with other skin ulcer; L97.821 Non-pressure chronic ulcer of other part of left lower leg limited to breakdown of skin
CPT/HCPCS: 11042; 97597

== ENCOUNTER → 2023-04-25 09:29 | Outpatient (BNVA) | payer MEDICARE, MEDICAID, SELFPAY ==
[2023-02-22 14:30] VITALS: BP 112/57; BMI 50.5
== END ==
PROVIDERS: PCP Family Medicine; Visit Provider Thoracic Surgery (Cardiothoracic Vascular Surgery)
DX: E11.52 Type 2 diabetes mellitus with diabetic peripheral angiopathy with gangrene (principal); E11.622 Type 2 diabetes mellitus with other skin ulcer; L97.822 Non-pressure chronic ulcer of other part of left lower leg with fat layer exposed
CPT/HCPCS: 11042; 97597

== ENCOUNTER → 2023-05-09 09:33 | Outpatient (BNVA) | payer MEDICARE, MEDICAID, SELFPAY ==
[2023-02-22 14:30] VITALS: BP 112/57; BMI 50.5
== END ==
PROVIDERS: PCP Family Medicine; Visit Provider Nurse Practitioner Family
DX: E11.52 Type 2 diabetes mellitus with diabetic peripheral angiopathy with gangrene (principal); E11.622 Type 2 diabetes mellitus with other skin ulcer; L97.822 Non-pressure chronic ulcer of other part of left lower leg with fat layer exposed; Z09 Encounter for follow-up examination after completed treatment for conditions other than malignant neoplasm; L97.821 Non-pressure chronic ulcer of other part of left lower leg limited to breakdown of skin
CPT/HCPCS: 11042; A6219

== ENCOUNTER → 2023-05-16 10:55 | Outpatient (BNVA) | payer MEDICARE, MEDICAID, SELFPAY ==
[2023-02-22 14:30] VITALS: BP 112/57; BMI 50.5
== END ==
PROVIDERS: PCP Family Medicine; Visit Provider Thoracic Surgery (Cardiothoracic Vascular Surgery)
DX: E11.52 Type 2 diabetes mellitus with diabetic peripheral angiopathy with gangrene (principal); E11.622 Type 2 diabetes mellitus with other skin ulcer; L97.822 Non-pressure chronic ulcer of other part of left lower leg with fat layer exposed; L97.821 Non-pressure chronic ulcer of other part of left lower leg limited to breakdown of skin
CPT/HCPCS: 11042; 97597

== ENCOUNTER → 2023-05-23 10:46 | Outpatient (BNVA) | payer MEDICARE, MEDICAID, SELFPAY ==
[2023-02-22 14:30] VITALS: BP 112/57; BMI 50.5
== END ==
PROVIDERS: PCP Family Medicine; Visit Provider Thoracic Surgery (Cardiothoracic Vascular Surgery)
DX: E11.52 Type 2 diabetes mellitus with diabetic peripheral angiopathy with gangrene (principal); E11.622 Type 2 diabetes mellitus with other skin ulcer; L97.822 Non-pressure chronic ulcer of other part of left lower leg with fat layer exposed; L08.9 Local infection of the skin and subcutaneous tissue, unspecified
CPT/HCPCS: 11042; 97597

== ENCOUNTER → 2023-05-30 10:09 | Outpatient (BNVA) | payer MEDICARE, MEDICAID, SELFPAY ==
[2023-02-22 14:30] VITALS: BP 112/57; BMI 50.5
== END ==
PROVIDERS: PCP Family Medicine; Visit Provider Thoracic Surgery (Cardiothoracic Vascular Surgery)
DX: E11.52 Type 2 diabetes mellitus with diabetic peripheral angiopathy with gangrene (principal); E11.622 Type 2 diabetes mellitus with other skin ulcer; L97.821 Non-pressure chronic ulcer of other part of left lower leg limited to breakdown of skin
CPT/HCPCS: 11042; 97597

== ENCOUNTER → 2023-06-27 10:48 | Outpatient (BNVA) | payer MEDICARE, MEDICAID, SELFPAY ==
[2023-02-22 14:30] VITALS: BP 112/57; BMI 50.5
== END ==
PROVIDERS: PCP Family Medicine; Visit Provider Thoracic Surgery (Cardiothoracic Vascular Surgery)
DX: E11.52 Type 2 diabetes mellitus with diabetic peripheral angiopathy with gangrene (principal); E11.622 Type 2 diabetes mellitus with other skin ulcer; L97.822 Non-pressure chronic ulcer of other part of left lower leg with fat layer exposed
CPT/HCPCS: 11042; A6212

== ENCOUNTER → 2023-07-11 10:39 | Outpatient (BNVA) | payer MEDICARE, MEDICAID, SELFPAY ==
[2023-02-22 14:30] VITALS: BP 112/57; BMI 50.5
== END ==
PROVIDERS: PCP Family Medicine; Visit Provider Thoracic Surgery (Cardiothoracic Vascular Surgery)
DX: E11.52 Type 2 diabetes mellitus with diabetic peripheral angiopathy with gangrene (principal); E11.622 Type 2 diabetes mellitus with other skin ulcer; L97.822 Non-pressure chronic ulcer of other part of left lower leg with fat layer exposed
CPT/HCPCS: 11042; 97597; A6212

== ENCOUNTER → 2023-07-18 11:08 | Outpatient (BNVA) | payer MEDICARE, MEDICAID, SELFPAY ==
[2023-02-22 14:30] VITALS: BP 112/57; BMI 50.5
== END ==
PROVIDERS: PCP Family Medicine; Visit Provider Thoracic Surgery (Cardiothoracic Vascular Surgery)
DX: E11.52 Type 2 diabetes mellitus with diabetic peripheral angiopathy with gangrene (principal); L97.822 Non-pressure chronic ulcer of other part of left lower leg with fat layer exposed; E11.622 Type 2 diabetes mellitus with other skin ulcer
CPT/HCPCS: 99213; A6212

== ENCOUNTER → 2023-08-15 10:39 | Outpatient (BNVA) | payer MEDICARE, MEDICAID, SELFPAY ==
[2023-02-22 14:30] VITALS: BP 112/57; BMI 50.5
== END ==
PROVIDERS: PCP Family Medicine; Visit Provider Thoracic Surgery (Cardiothoracic Vascular Surgery)
DX: E11.52 Type 2 diabetes mellitus with diabetic peripheral angiopathy with gangrene (principal); E11.622 Type 2 diabetes mellitus with other skin ulcer; L97.821 Non-pressure chronic ulcer of other part of left lower leg limited to breakdown of skin
CPT/HCPCS: 87070; 97597; A6212

== ENCOUNTER → 2023-08-30 10:56 | Outpatient (BNVA) | payer MEDICARE, MEDICAID, SELFPAY ==
[2023-02-22 14:30] VITALS: BP 112/57; BMI 50.5
== END ==
PROVIDERS: PCP Family Medicine; Visit Provider Thoracic Surgery (Cardiothoracic Vascular Surgery)
DX: E11.52 Type 2 diabetes mellitus with diabetic peripheral angiopathy with gangrene (principal); E11.622 Type 2 diabetes mellitus with other skin ulcer; L97.821 Non-pressure chronic ulcer of other part of left lower leg limited to breakdown of skin
CPT/HCPCS: 97597

== ENCOUNTER → 2024-02-14 14:58 | Outpatient (BNVA) | payer MEDICARE, OTHER, SELFPAY ==
[2023-02-22 14:30] VITALS: BP 112/57; BMI 50.5
== END ==
PROVIDERS: Absent Provider Psychiatry & Neurology Psychiatry; PCP Family Medicine; Referring Provider Psychiatry & Neurology Psychiatry; Visit Provider Counselor Professional
DX: Z79.899 Other long term (current) drug therapy (principal)
CPT/HCPCS: 80061; 85025

== ENCOUNTER 2024-09-10 06:47 | Inpatient (IN) | payer MEDICARE, MEDICAID, SELFPAY ==
[2024-03-05 15:54] VITALS: BP 118/59; BMI 46.9
[2024-09-10] VITALS (35 sets, daily range): BP systolic 84–130; BP diastolic 45–65; PULSE 90–121; RESP 8–25; TEMP 37.2–39.5; O2SAT 88–97; BMI 47.0
--- NOTE | 2024-09-10 06:53 | XR_ITS ---
WS: [id number] XR chest 1V portable [id number] REASON FOR EXAM: Hypoxia, altered mental status FINDINGS: The chest is essentially unchanged compared to presumed baseline examination of 07/19/2022. There is significant tortuosity and ectasia of the thoracic aorta with previous aortic valve stent graft. The heart is at the upper limits of normal. There is mild central pulmonary venous congestion. There are chronic interstitial changes throughout both lungs. Calcified granulomas disease with multiple calcified mediastinal and hilar lymph nodes. No definite acute pulmonary parenchymal or pleural abnormality. Moderate degenerative spondylosis in the thoracic spine. XR/XR chest 1V portable [id number] IMPRESSION: Stable chest with no definite acute abnormality.
--- NOTE | 2024-09-10 06:55 | W.ED.AMS ---
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 Patient is alert to self only. Normally she is ANO x 4. Patient has urinated on herself normally she is continent. 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 Patient is requiring 4 L of oxygen to keep her saturation approximately 92%. She normally does not wear any oxygen but does wear CPAP at night. Related Data Home Medications ?Medication ?Instructions ?Recorded ?Confirmed aspirin 81 mg tablet,delayed 81 mg PO QAM 10/08/19 09/10/24 release (Adult Aspirin Regimen) empagliflozin 25 mg-linagliptin 5 1 tab PO QAM 10/08/19 09/10/24 mg tablet (Glyxambi) Held on 07/24/22. Instructions: Resume on 07/31/22. febuxostat 80 mg tablet (Uloric) 80 mg PO QAM 10/08/19 09/10/24 levothyroxine 100 mcg tablet 100 mcg PO QAM 10/08/19 09/10/24 pramipexole 1.5 mg tablet,extended 1.5 mg PO BEDTIME 10/08/19 09/10/24 release 24 hr (Mirapex ER) Held on 07/24/22. Instructions: Resume on 07/26/22. simvastatin 40 mg tablet (Zocor) 40 mg PO QPM 10/08/19 09/10/24 ascorbic acid (vitamin C) 500 mg 500 mg PO QAM 07/20/22 09/10/24 tablet (Vitamin C) azelastine 137 mcg (0.1 %) nasal 2 spray intranasal BID 07/20/22 09/10/24 spray calcium 600 mg (as 1 tab PO BID 07/20/22 09/10/24 carbonate)-vitamin D3 5 mcg (200 unit) tablet denosumab 60 mg/mL subcutaneous See Rx Instructions .Route .COMPLEX 07/20/22 09/10/24 syringe (Prolia) fluticasone fur. 100 mcg-umeclid 1 ea inhalation QAM 07/20/22 09/10/24 62.5 mcg-vilant 25 mcg inhalat.powder (Trelegy Ellipta) fluticasone propionate 50 1 spray intranasal DAILY 07/20/22 09/10/24 mcg/actuation nasal spray,suspension insulin glargine 100 unit/mL (3 76 unit SUBCUT BID 07/20/22 09/10/24 mL) subcutaneous pen (Lantus Solostar U-100 Insulin) insulin lispro 100 unit/mL See Rx Instructions .Route .COMPLEX 07/20/22 09/10/24 subcutaneous pen bvfgtann-hzt-dtikx ac 400 1 tab PO DAILY 07/20/22 09/10/24 mcg-calcium carb 500 mg-vit K1 20 mcg tablet (Women's 50 Plus Daily Formula) Saccharomyces boulardii 250 mg 250 mg PO QPM 09/27/22 09/10/24 capsule (Daily Probiotic (S. boulardii)) celecoxib 100 mg capsule (Celebrex) 100 mg PO DAILY 09/27/22 09/10/24 cetirizine 10 mg tablet (Zyrtec) 10 mg PO BID 09/27/22 09/10/24 guaifenesin 600 mg tablet, 600 mg PO BID 09/27/22 09/10/24 extended release 12 hr (Mucinex) omega 6-ubh-bcg-fish oil 100 1 cap PO BID 09/27/22 09/10/24 mg-160 mg-1,000 mg capsule (Fish Oil) tramadol 50 mg tablet 50 - 100 mg PO Q6H PRN Pain 09/27/22 09/10/24 clopidogrel 75 mg tablet (Plavix) 75 mg PO QAM 12/27/23 09/10/24 nystatin 100,000 unit/gram topical 1 applic topical DAILY 12/27/23 09/10/24 cream pantoprazole 40 mg tablet,delayed 40 mg PO QAM 12/27/23 09/10/24 release (Protonix) acetaminophen 325 mg tablet 650 mg PO Q6H PRN pain /elevated 09/10/24 09/10/24 temp bisacodyl 5 mg tablet 5 mg PO DAILY PRN Constipation 09/10/24 09/10/24 buspirone 30 mg tablet 30 mg PO BID anxiety 09/10/24 09/10/24 cholecalciferol (vitamin D3) 50 50 mcg PO BID 09/10/24 09/10/24 mcg (2,000 unit) capsule (Vitamin D3) diclofenac sodium 1 % topical gel 4 g topical QID 09/10/24 09/10/24 duloxetine 60 mg capsule,delayed 60 mg PO QAM 09/10/24 09/10/24 release (Cymbalta) ferrous sulfate 325 mg (65 mg 325 mg PO BID 09/10/24 09/10/24 iron) tablet hydrocodone 5 mg-acetaminophen 325 1 tab PO Q8H PRN Moderate Pain 09/10/24 09/10/24 mg tablet (Scale Score 5-6) icosapent ethyl 1 gram capsule 2 g PO BID 09/10/24 09/10/24 (Vascepa) insulin lispro 100 unit/mL 12 unit SUBCUT QID 09/10/24 09/10/24 subcutaneous pen lidocaine 2.5 %-prilocaine 2.5% 1 applic topical DAILY PRN Pain 09/10/24 09/10/24 and m.salicy 30 %-menth 10 % top cream loperamide 2 mg capsule 2 mg PO Q3H PRN loose 09/10/24 09/10/24 stools/diarrhea ondansetron 4 mg disintegrating 1 mg PO Q4H PRN nausea/emesis 09/10/24 09/10/24 tablet oxybutynin chloride 10 mg 10 mg PO QAM 09/10/24 09/10/24 tablet,extended release 24 hr pregabalin 50 mg capsule See Rx Instructions .Route .COMPLEX 09/10/24 09/10/24 sennosides 8.6 mg-docusate sodium 1 tab PO QAM 09/10/24 09/10/24 50 mg tablet (Senokot-S) tirzepatide 15 mg/0.5 mL 15 mg SUBCUT Q7D 09/10/24 09/10/24 subcutaneous pen injector (Mounjaro) tizanidine 2 mg tablet 2 mg PO TID 09/10/24 09/10/24 torsemide 20 mg tablet See Rx Instructions .Route .COMPLEX 09/10/24 09/10/24 trazodone 100 mg tablet 100 mg PO BEDTIME 09/10/24 09/10/24 triamcinolone acetonide 0.1 % 1 applic topical BID 09/10/24 09/10/24 topical cream Allergies Allergy/AdvReac Type Severity Reaction Status Date / Time lisinopril Allergy Severe kidney Verified 11/27/22 13:47 failure Sulfa (Sulfonamide Allergy Intermediate ALGY-Rash Verified 11/27/22 13:47 Antibiotics) grass pollen Allergy Mild It's just Verified 11/27/22 13:47 a mild allergy. PHILIP Inhibitors Allergy Unknown Unverified 01/09/23 20:39 allopurinol Allergy Unknown Unverified 01/09/23 20:39 Beta-Blockers Allergy Unknown Unverified 01/09/23 20:39 (Beta-Adrenergic Bloc (Beta-Blockers (Beta-Adrenergic Blocking Agts)) nickel Allergy Unknown Unverified 01/09/23 20:39 polyethylene glycol 3350 AdvReac Mild ADR-Nausea Verified 11/27/22 13:47 (From Miralax) angiotensin receptor Allergy Unknown Uncoded 01/12/23 17:05 antagonists Review of Systems General: Reports: 10 or more systems reviewed and unremarkable except in HPI and below PFSH ED PFSH: Medical History Alkalosis, metabolic Sinusitis Flash pulmonary edema Aortic stenosis UTI (urinary tract infection) Anasarca CHF (congestive heart failure) Encephalopathy acute Altered mental status Diabetes Sleep apnea COPD (chronic obstructive pulmonary disease) Hyperlipidemia CHF (congestive heart failure) Hypertension Hypothyroid Acute cystitis Weakness Generalized anxiety disorder Moderate episode of recurrent major depressive disorder Psychiatric care Surgical History History of cholecystectomy History of neck surgery H/O total knee replacement lt x2 rt x 1 H/O carpal tunnel repair Family History Other Cancer Diabetes Hypertension Hypothyroidism Social History Smoking and tobacco/nicotine status: former use of tobacco/nicotine Quit status (tobacco/nicotine): has quit using Year quit tobacco: 2009 Alcohol intake: never Substance/Drug Use: never Adopted: No Caregiver/support person: Yes (sets up medication and wound bandage change 2x week) Lives independently: Yes Household members: children Housing: Apartment Marital status: Number of children: 3 Number of grandchildren: 6 Highest education level completed: Some College, No Degree service: No Current occupational status: disabled Current occupation: disability since 1992 Current occupational exposures/hazards: No Pets and animals: No Leisure activites: other Leisure activities details: watch TV,crafts Sexually active: No Do you think of yourself as: Straight/Heterosexual Current gender identity: Female Nida/Shinto: Christianity Special nida needs: No Agree to transfusion: Yes Female Reproductive History: Para: 3 Physical Exam Const: COMMON NORMALS: no acute distress, average body habitus, no limitations, healthy appearing, alert and well nourished HENMT: COMMON NORMALS: normocephalic, atraumatic, hearing grossly normal bilaterally, external ears normal, Normal external nose present and oropharynx normal; oral mucous membranes not moist (Dry oral mucosa) HEAD & SCALP: normocephalic and atraumatic NOSE: Normal external nose present EXTERNAL EAR: Yes external ears normal Eye: COMMON NORMALS: Equal, round and reactive pupils present, EOMs intact bilaterally, conjunctivae normal and no scleral icterus CONJUNCTIVA: Yes conjunctivae normal PUPIL: Yes Equal, round and reactive pupils present Neck/C-Spine: COMMON NORMALS: full ROM, no lymphadenopathy, supple, no meningeal signs and no JVD Chest: COMMONS NORMALS: normal inspection of the chest and normal palpation of entire chest wall Resp: COMMON NORMALS: normal respiratory effort, No retractions and No use of accessory muscles; negative for clear to auscultation bilaterally (Bilateral rhonchi) AUSCULTATION: not clear to auscultation bilaterally (Bilateral rhonchi) Cardio: COMMON NORMALS: no JVD, regular rate, regular rhythm, S1 normal heart sound present, S2 normal heart sound present, No gallops present (Cardio) and No clicks present (Cardio); negative for No murmurs present (Cardio) (2/6 to 3/6 systolic ejection murmur) RATE: regular rate RHYTHM: regular rhythm HEART SOUNDS: S1 normal heart sound present and S2 normal heart sound present GI: COMMON NORMALS: Normal to inspection, nondistended, normoactive bowel sounds present (Obese), Soft to palpation, non-tender, No hepatosplenomegaly present and no masses PALPATION: Yes Soft to palpation and Yes No hepatosplenomegaly present Extremity: NARRATIVE EXTREMITY EXAM: Left sfygl-osu-dysg amputation well-healed Neuro: SENSORIUM/ORIENTATION: Yes alert MENINGEAL SIGNS: Yes no meningeal signs Course Vital Signs: Vital signs: Vital Signs Temperature 100.1 F H 09/10/24 10:04 Pulse Rate 102 H 09/10/24 11:25 Respiratory Rate 16 09/10/24 11:25 Blood Pressure 84/46 09/10/24 11:25 Pulse Oximetry 91 09/10/24 11:25 Oxygen Delivery Me thod Nasal Cannula 09/10/24 11:25 Oxygen Flow Rate 4 09/10/24 11:25 MDM - Altered Mental Status Medical Decision Making Head CT and chest x-ray are were normal, lab work unremarkable for altered mental status and hypoxia, discussed these results with Dr. Summers we will get a CTA start patient on Vanco and Zosyn admit to CSU. Lab Data 09/10/24 07:02 09/10/24 07:02 Radiology Impressions Chest X-Ray 09/10/24 06:53 IMPRESSION: Stable chest with no definite acute abnormality. Head CT 09/10/24 08:06 IMPRESSION: 1. No acute intracranial hemorrhage or edema. 2. Stable, moderate volume loss and small vessel disease. 3. Mild ventriculomegaly, stable. Laboratory Results WBC 11.55 10^3/uL (3.29-11.43) H 09/10/24 07:02 RBC 4.50 10^6/uL (3.85-5.65) 09/10/24 07:02 Hgb 12.60 g/dL (11.27-16.99) 09/10/24 07:02 Hct 40.4 % (36-47) 09/10/24 07:02 MCV 89.8 fl (85-98) 09/10/24 07:02 MCH 28.0 pg (27-33) 09/10/24 07:02 MCHC 31.2 g/dL (30-55) 09/10/24 07:02 RDW 16.1 % (12.1-15.1) H 09/10/24 07:02 Plt Count 146 10^3/cmm (157-399) L 09/10/24 07:02 MPV 10.5 fL (7.4-10.4) H 09/10/24 07:02 Neut % (Auto) 83.9 % 09/10/24 07:02 Lymph % (Auto) 8.9 % 09/10/24 07:02 [place] % (Auto) 5.8 % 09/10/24 07:02 Eos % (Auto) 0.3 % 09/10/24 07:02 Baso % (Auto) 0.4 % 09/10/24 07:02 Neut # (Auto) 9.69 10^3/uL (1.8-7.7) H 09/10/24 07:02 Lymph # (Auto) 1.0 10^3/uL (0.8-4.8) 09/10/24 07:02 [place] # (Auto) 0.7 10^3/uL (0.2-0.9) 09/10/24 07:02 Eos # (Auto) 0.0 10^3/uL (0.0-0.8) 09/10/24 07:02 Baso # (Auto) 0.1 10^3/uL (0.0-0.1) 09/10/24 07:02 Nucleated RBC % (auto) 0 % 09/10/24 07:02 Nucleated RBCs # 0.0 /100WBC 09/10/24 07:02 Specimen Type Arterial 09/10/24 07:16 Sample Site Brachial, right 09/10/24 07:16 ABG pH 7.47 (7.35-7.45) H 09/10/24 07:16 ABG pCO2 43.8 mmHg (35-45) 09/10/24 07:16 ABG pO2 66.0 mmHg (80.0-100.0) L 09/10/24 07:16 ABG PO2/FiO2 Ratio 183 09/10/24 07:16 ABG HCO3 31.9 mmol/L (22-26) H 09/10/24 07:16 ABG O2 Saturation 92.6 09/10/24 07:16 ABG Base Excess 7.4 mmol/L (-2.0-2.0) H 09/10/24 07:16 Luis M Test N/a 09/10/24 07:16 A-a O2 Gradient 17.1 mmHg (5-10) H 09/10/24 07:16 Hematocrit 39.4 % (37-47) 09/10/24 07:16 Hgb O2 Saturation 90.8 % (95-100) L 09/10/24 07:16 Carboxyhemoglobin 0.9 %THgb (0.4-20.1) 09/10/24 07:16 Methemoglobin 1.0 % (0.4-1.5) 09/10/24 07:16 Total Hemoglobin 12.8 g/dL (12-16) 09/10/24 07:16 Sodium 142.0 mmol/L (131-143) 09/10/24 07:16 Potassium 4.1 mmol/L (3.5-5.0) 09/10/24 07:16 Glucose 179.0 mg/dL (70-115) H 09/10/24 07:16 Ionized Calcium 1.2 mmol/L (1.1-1.4) 09/10/24 07:16 O2 Delivery Device Nc 09/10/24 07:16 O2 Liters/Min 4.0 % 09/10/24 07:16 FiO2 36.0 % 09/10/24 07:16 Tools And Parts Attendant ID Amh 09/10/24 07:16 Sodium 138 mmol/L (136-145) 09/10/24 07:02 Potassium 4.3 mmol/L (3.5-5.1) 09/10/24 07:02 Chloride 97 mmol/L (98-107) L 09/10/24 07:02 Carbon Dioxide 29 mmol/L (22-29) 09/10/24 07:02 Anion Gap 16.3 (5-19) 09/10/24 07:02 BUN 36 mg/dL (8-23) H 09/10/24 07:02 Creatinine 1.2 mg/dL (0.5-0.9) H 09/10/24 07:02 GFR Calculation Not Reportable 09/10/24 07:02 Glucose 176 mg/dL (65-115) H 09/10/24 07:02 Calculated Osmolality 299 mOsm/kg (285-295) H 09/10/24 07:02 Lactic Acid 1.8 mmol/L (0.5-2.2) 09/10/24 07:02 Calcium 9.8 mg/dL (8.5-10.5) 09/10/24 07:02 Magnesium 2.3 mg/dL (1.7-2.3) 09/10/24 07:02 Total Bilirubin 0.5 mg/dL (0.15-1.2) 09/10/24 07:02 AST 24 U/L (0-32) 09/10/24 07:02 ALT 19 U/L (0-33) 09/10/24 07:02 Alkaline Phosphatase 117 U/L (35-105) H 09/10/24 07:02 Troponin T Baseline 28 ng/L (0-10) H 09/10/24 07:02 Troponin T 120 Minute 26.79 ng/L (0-10) H 09/10/24 08:55 Delta Troponin T -1.21 ABS# (0-10) L 09/10/24 08:55 C-Reactive Protein 84.8 mg/L (0.0-4.9) H 09/10/24 07:02 NT-Pro-B Natriuret Pep 719 pg/mL (0-125) H 09/10/24 07:02 Total Protein 8.1 g/dL (6.6-8.7) 09/10/24 07:02 Albumin 3.8 g/dL (3.5-5.2) 09/10/24 07:02 Globulin 4.3 g/dL (1.3-4.6) 09/10/24 07:02 Procalcitonin 0.33 ng/mL (0-0.5) 09/10/24 07:02 Urine Color Yellow (Yellow) 09/10/24 07:06 Urine Appearance Clear (CLEAR) 09/10/24 07:06 Urine pH 5 (5-7) 09/10/24 07:06 Ur Specific [place] 1.005 (1.005-1.030) 09/10/24 07:06 Urine Protein Neg (Negative) 09/10/24 07:06 Urine Glucose (UA) 4+ (Normal) H 09/10/24 07:06 Urine Ketones Negative (Negative) 09/10/24 07:06 Urine Blood Neg (Negative) 09/10/24 07:06 Urine Nitrate Negative (Negative) 09/10/24 07:06 Urine Bilirubin Neg (Negative) 09/10/24 07:06 Urine Urobilinogen Neg mg/dL (Negative) 09/10/24 07:06 Ur Leukocyte Esterase Negative (Negative) 09/10/24 07:06 Amorphous Sediment Not Reportable 09/10/24 07:06 Urine Opiates Screen Positive ng/mL (Negative) H 09/10/24 07:06 Ur Barbiturates Screen Negative ng/mL (Negative) 09/10/24 07:06 Ur Phencyclidine Scrn Negative ng/mL (Negative) 09/10/24 07:06 Ur Amphetamines Screen Negative ng/mL (Negative) 09/10/24 07:06 U Benzodiazepines Scrn Negative ng/mL (Negative) 09/10/24 07:06 Urine Cocaine Screen Negative ng/mL (Negative) 09/10/24 07:06 U Marijuana (THC) Screen Negative ng/mL (Negative) 09/10/24 07:06 Influenza A (PCR) Negative (Negative) 09/10/24 07:06 Influenza Type B (PCR) Negative (Negative) 09/10/24 07:06 RSV (PCR) Negative (Negative) 09/10/24 07:06 SARS-CoV-2 (PCR) Negative (Negative) 09/10/24 07:06 All radiology interpretation(s) finalized by discharge Discharge Plan Discharge Patient Disposition: Admitted As Inpatient Admit Provider: Lucas Monroe Clinical Impression: Acute alteration in mental status, Fever of unknown origin, Acute hypoxic respiratory failure Condition: Stable Coding Level of Care Code ED [place] for Hemalatha Blanca
--- NOTE | 2024-09-10 07:06 | ECG_ITS ---
[facility] Test Date: 2024-09-10 Pat Name: Michelle Keita Department: Room: Gender: Female Credit Rating Inspector: : 1955 Requested By: Jermain Roach Order Number: [id number] Panchito MD: Benigno Crandall M.D. Measurements Intervals [place] Rate: 114 P: 64 DC: 194 QRS: 18 QRSD: 97 T: 17 QT: 325 QTc: 449 Interpretive Statements SINUS TACHYCARDIA LOW QRS VOLTAGE IN PRECORDIAL LEADS [QRS DEFLECTION < 1.0 mV IN CHEST LEADS] POSSIBLE ANTERIOR MYOCARDIAL INFARCTION , PROBABLY OLD [30 ms Q WAVE IN V3/V4, OR R < 0.2 mV IN V4] Compared to ECG 07/21/2022 13:58:56 Low QRS voltage now present Myocardial infarct finding now present Sinus rhythm no longer present First degree AV block no longer present Prolonged QT interval no longer present Electronically Signed On 09-13-2024 18:24:45 CDT by Benigno Crandall M.D. [id number]
[2024-09-10 07:09] LABS: Basophils # 0.1 10^3/uL (0.0-0.1); Basophils % 0.4 %; Eosinophils % 0.3 %; Hematocrit 40.4 % (36-47); Lymphocytes % 8.9 %; Mean Corpuscular HGB Conc 31.2 g/dL (30-55); Mean Corpuscular Volume 89.8 fl (85-98); Mean Platelet Volume 10.5 fL (7.4-10.4); Monocytes # 0.7 10^3/uL (0.2-0.9); Monocytes % 5.8 %; Neutrophils # 9.69 10^3/uL (1.8-7.7); Neutrophils % 83.9 %; Nucleated Red Blood Cells % 0 %; Platelet Count 146 10^3/cmm (157-399); Red Cell Distribution Width 16.1 % (12.1-15.1); White Blood Count 11.55 10^3/uL (3.29-11.43)
[2024-09-10] MEDS: ipratropium-albuterol 3 mL Neb INHALATION ×3 (07:09→20:19)
[2024-09-10 07:21] LABS: Add Urine Microscopic? NO
[2024-09-10 07:27] LABS: ABG PCO2 43.8 mmHg (35-45); ABG PH Result 7.47 (7.35-7.45); Alveolar-Arterial Oxygen Gradi 17.1 mmHg (5-10); Arterial Blood Gas Hematocrit 39.4 % (37-47); Base Excess ABG 7.4 mmol/L (-2.0-2.0); Blood Gas Operator Identificat AMH; Blood Gas Sample Site Brachial, right; Blood Gas Sample Type Arterial; Carboxyhemoglobin 0.9 %THgb (0.4-20.1); HCO3 ABG 31.9 mmol/L (22-26); HGB O2 Sat 90.8 % (95-100); Ionized Calcium Level - ABG 1.2 mmol/L (1.1-1.4); Oxygen Device NC; Oxygen Saturation ABG 92.6; PO2 FiO2 Ratio Arterial Blood 183; Potassium Level - ABG 4.1 mmol/L (3.5-5.0); Total Hemoglobin 12.8 g/dL (12-16)
[2024-09-10 07:29] LABS: Lactic Sepsis W/Reflex 1.8 mmol/L (0.5-2.2)
[2024-09-10 07:30] LABS: Troponin(5th) Baseline 28 ng/L (0-10)
[2024-09-10 07:46] LABS: NT Pro B Type Natriuretic Pept 719 pg/mL (0-125); Procalcitonin 0.33 ng/mL (0-0.5)
[2024-09-10 07:53] LABS: Bilirubin Urine Neg (Negative); Blood Urine Neg (Negative); Glucose Urine UA 4+ (Normal); Ketones Urine Negative (Negative); Leukocyte Esterase Urine Negative (Negative); Nitrate Urine Negative (Negative); Protein Urine Neg (Negative); Specific Gravity, Urine 1.005 (1.005-1.030); Urine Appearance Clear (CLEAR); Urine Color Yellow (Yellow); Urobilinogen Urine Neg (Negative); pH Urine 5 (5-7)
[2024-09-10 07:54] LABS: Charge for UA Resulting for Rev
[2024-09-10 07:57] LABS: Alanine Aminotransferase 19 U/L (0-33); Albumin Level 3.8 g/dL (3.5-5.2); Alkaline Phosphatase 117 U/L (35-105); Anion Gap 16.3 (5-19); Aspartate Amino Transferase 24 U/L (0-32); Blood Urea Nitrogen 36 mg/dL (8-23); C Reactive Protein 84.8 mg/L (0.0-4.9); Calcium 9.8 mg/dL (8.5-10.5); Carbon Dioxide 29 mmol/L (22-29); Chloride 97 mmol/L (98-107); Creatinine Clr Calc Pharmacy 56.0254; Globulin 4.3 g/dL (1.3-4.6); Glucose 176 mg/dL (65-115); Magnesium 2.3 mg/dL (1.7-2.3); Osmolality Calculated 299 mOsm/kg (285-295); Potassium 4.3 mmol/L (3.5-5.1); Sodium 138 mmol/L (136-145); Total Bilirubin 0.5 mg/dL (0.15-1.2); Total Protein 8.1 g/dL (6.6-8.7)
[2024-09-10 08:05] LABS: Influenza A NEGATIVE (Negative); Influenza B NEGATIVE (Negative); Respiratory Syncytial Virus Ce NEGATIVE (Negative); SARS-CoV-2 PCR NEGATIVE (Negative)
--- NOTE | 2024-09-10 08:06 | CT_ITS ---
WS: [id number] CT HEAD NONCONTRAST HISTORY: Altered mental status TECHNIQUE: Contiguous axial imaging performed through the brain. Bone and soft tissue windows. Sagittal and coronal reformats reviewed. All CT scans at [facility] use at least one of these dose optimization techniques: automated exposure control; mA and/or kV adjustment per patient size (includes targeted exams where dose is matched to clinical indication); or iterative reconstruction. DLP: 1173.28 mGy.cm COMPARISON: 07/21/2022 No acute intracranial hemorrhage, midline shift or mass effect. Moderate volume loss and atrophy with small vessel ischemic disease. Chronic changes with no acute findings. Similar to 07/21/2022. Ventricles: Ventricles are mildly dilated. Paranasal sinuses: Mucoperiosteal thickening in the LEFT maxillary sinus. Prior functional endoscopic sinus surgery. No air-fluid levels. Mastoid air cells: Well pneumatized. Calvarium and scalp: Mild hyperostosis frontalis interna. Bilateral TM joint arthritis, LEFT greater than RIGHT. CT/CT head wo con* [id number] IMPRESSION: 1. No acute intracranial hemorrhage or edema. 2. Stable, moderate volume loss and small vessel disease. 3. Mild ventriculomegaly, stable.
[2024-09-10] MEDS: acetaminophen 1,000 MG/100 ML PIGGYBACK 400 MG IV (08:34)
[2024-09-10 08:47] LABS: Amphetamines Screen Urine Negative (Negative); Barbiturates Screen Urine Negative (Negative); Benzodiazepines Screen Urine Negative (Negative); Cocaine Screen Urine Negative (Negative); Opiate Screen Urine Positive (Negative); PCP Screen Urine Negative (Negative); THC Screen Urine Negative (Negative)
--- NOTE | 2024-09-10 08:53 | ECG_ITS ---
[facility] Date: 2024-09[facility]10 Pat Name: Michelle Keita Department: Room: Gender: Female Pyroglazer: : 1955 Requested By: Jermain Roach Order Number: [id number] Reading MD: NICKY KIRK Measurements Intervals [place] Rate: 118 P: 197 TN: 183 QRS: 20 QRSD: 105 T: 31 QT: 399 QTc: 559 Interpretive Statements SINUS TACHYCARDIA LOW QRS VOLTAGE IN PRECORDIAL LEADS [QRS DEFLECTION < 1.0 mV IN CHEST LEADS] ANTERIOR MYOCARDIAL INFARCTION , PROBABLY OLD [40+ ms Q WAVE AND/OR ST/T ABNORMALITY IN V3/V4] POSSIBLE INFERIOR MYOCARDIAL INFARCTION , PROBABLY OLD [30 ms Q WAVE IN II/aVF] Compared to ECG 09/10/2024 07:06:21 No significant changes Electronically Signed On 09-14-2024 21:53:44 CDT by NICKY KIRK [id number]
--- NOTE | 2024-09-10 09:09 | PC.NURSE ---
PROVIDER NOTIFIED OF TEMP INCREASE AFTER ACETAMINOPHEN.
[2024-09-10 09:17] LABS: Troponin 5 2HR 26.79 ng/L (0-10)
[2024-09-10 09:24] LABS: Troponin 5 2HR Delta -1.21 ABS# (0-10)
[2024-09-10] MEDS: ketorolac 30 mg/mL INJ IVP (09:30)
[2024-09-10] MEDS: sodium chloride 0.9% 1,000 ML 999 ML IV (09:31)
--- NOTE | 2024-09-10 10:14 | PC.PHAR ---
Pt is from [facility] [phone]. Call for med list.
--- NOTE | 2024-09-10 10:20 | PC.NURSE ---
PROVIDER NOTIFIED OF PATIENT DECLINE IN BP AND O2 SATURATION.
--- NOTE | 2024-09-10 11:05 | CT_ITS ---
WS: [id number] CT CHEST ANGIOGRAPHY WITH REFORMATS HISTORY: hypoxia ams TECHNIQUE: Contiguous axial images are obtained through the chest during arterial injection of intravenous contrast. Images are reconstructed to evaluate the pulmonary arteries. MIP imaging also reviewed. All CT scans at [facility] use at least one of these dose optimization techniques: automated exposure control; mA and/or kV adjustment per patient size (includes targeted exams where dose is matched to clinical indication); or iterative reconstruction. CONTRAST: Omnipaque 350; 100 mL IV. DLP: 1013.97 mGy.cm COMPARISON: 07/20/2022 Good opacification of the pulmonary arteries. There is some breathing motion artifact. Pulmonary artery size is normal. No central pulmonary emboli. Good opacification of the lower lobe pulmonary arteries. No filling defects within the segmental branches of the upper lobes or RIGHT middle lobe. Atherosclerosis aorta. Aortic valve replacement stent. Mild LEFT heart enlargement. No pericardial or pleural effusions. Mild hazy attenuation throughout both lungs. Some of this is in part due to breathing motion artifact. Small amount of fluid overload may appear similar. Mild dependent changes at the LEFT lung base. No adenopathy. Debris within the midesophagus probably from reflux disease. Liver is enlarged. Spleen also is enlarged but incompletely included on this examination. Spleen is extending over a length greater than 13 cm. Hepatomegaly and splenomegaly were described on a prior CT of 07/20/2022. Curvature and degenerative spondylitic changes throughout the thoracic spine. CT/CT angio chest PE protcl [id number] IMPRESSION: 1. No pulmonary embolism. 2. Status post aortic valve replacement. 3. Mild LEFT heart enlargement. 4. Mild hazy attenuation throughout both lungs. In part this is due to breathi ng motion artifact but also favor the there is a small amount of interstitial e julian. 5. Debris within the midesophagus may be from reflux disease/incomplete cleari ng of the esophagus. 6. Hepatosplenomegaly. Also described on 07/20/2022.
[2024-09-10] MEDS: piperacillin-tazobactam 3.375 GM in sodium chloride 0.9% (plus) 50 ML IV ×2 (11:25→19:07)
[2024-09-10] MEDS: iohexol 350 mg/mL 500 mL Btl (per mL) IV (12:06)
[2024-09-10] MEDS: VANCOMYCIN ADD-Vantage 1,000 MG in 0.9% NaCl ADD-Vantage 250 ML 250 MG IV (12:25)
--- NOTE | 2024-09-10 12:38 | ECG_ITS ---
[facility] Test Date: 2024-09-10 Pat Name: Michelle Keita Department: Room: EDIP Gender: Female Equipment Application Specialist: : 1955 Requested By: Jermain Roach Order Number: [id number] Reading MD: NICKY KIRK Measurements Intervals [place] Rate: 97 P: 95 IN: 227 QRS: 30 QRSD: 109 T: 27 QT: 387 QTc: 493 Interpretive Statements SINUS RHYTHM WITH FIRST DEGREE AV BLOCK LOW QRS VOLTAGE IN PRECORDIAL LEADS [QRS DEFLECTION < 1.0 mV IN CHEST LEADS] POSSIBLE ANTERIOR MYOCARDIAL INFARCTION , PROBABLY OLD [30 ms Q WAVE IN V3/V4, OR R < 0.2 mV IN V4] Compared to ECG 09/10/2024 08:33:52 First degree AV block now present Sinus tachycardia no longer present Myocardial infarct finding still present Electronically Signed On 09-14-2024 21:54:15 CDT by NICKY KIRK [id number]
--- NOTE | 2024-09-10 13:20 | USCV_ITS ---
Michelle Keita Age: 69 Gender: F : 1955 Exam Date: 09/10/2024 13:44 Ordering Phys: Lucas Monroe MD Technologist: Exam Location: [facility] Indication: chf murmur BP: 103 / 51 HR: 93 Rhythm: Sinus Technical Quality: Adequate MEASUREMENTS (Male / Female) Normal Values 2D ECHO LV Diastolic Diameter PLAX 3.6 cm 4.2 - 5.9 / 3.9 - 5.3 cm IVS Diastolic Thickness 1.3 cm 0.6 - 1.0 / 0.6 - 0.9 cm IVS Systolic Thickness 1.4 cm LVPW Diastolic Thickness 1.3 cm 0.6 - 1.0 / 0.6 - 0.9 cm LVPW Systolic Thickness 2.0 cm LVOT Diameter 2.1 cm LV Ejection Fraction 2D Teich 64.1 % LV Ejection Fraction MOD 4C 62.7 % LV Ejection Fraction MOD 2C 63.3 % LV Ejection Fraction 2C AL 63.8 % LA Diameter 3.0 cm RA Systolic Volume 4C AL 35.5 ml RA Systolic Volume 4C MOD 36.7 ml Aorta at Sinotubular Diameter 2.9 cm M-MODE LA Ao Ratio MM 1.3 AV Cusp Separation MM 1.8 cm DOPPLER AV Peak Velocity 224.0 cm/s LVOT Peak Velocity 91.0 cm/s AV Area Cont Eq vti 1.7 cm squared AV Area Cont Eq pk 1.4 cm squared MV Peak Velocity 198.0 cm/s MV Area PHT 4.1 cm squared Mitral E to A Ratio 0.7 TV Peak Velocity 159.5 cm/s TR Peak Velocity 199.0 cm/s TR Peak Gradient 15.8 mmHg TV Peak E Velocity 119.0 cm/s PV Peak Velocity 143.0 cm/s FINDINGS Left Ventricle Normal left ventricular size, systolic function and wall thickness, with no regional wall motion abnormalities. Left ventricular ejection fraction is estimated at 60 %. Right Ventricle The right ventricle is normal in size and function. Right Atrium The right atrium is normal in size. Left Atrium Moderately increased left atrial size. Mitral Valve Moderately thickened mitral valve. Moderate mitral annular calcification. No mitral valve stenosis. Aortic Valve Severe aortic valve calcification. Mild aortic valve stenosis, mean gradient 8.4 mmHg, TIM 1.7 cm squared. Trace aortic valve regurgitation. Tricuspid Valve Structurally normal tricuspid valve without significant stenosis or regurgitation. Pulmonary artery systolic pressure is normal. Pulmonic Valve Structurally normal pulmonic valve without significant stenosis. There is no pulmonic regurgitation. Pericardium Normal pericardium without effusion. Aorta Normal ascending aorta dimension. IVC Inferior vena cava not visualized. CONCLUSIONS Normal left ventricular size, systolic function and wall thickness, with no regional wall motion abnormalities. Left ventricular ejection fraction is estimated at 60 %. Severe aortic valve calcification. Mild aortic valve stenosis, mean gradient 8.4 mmHg, TIM 1.7 cm squared. Trace aortic valve regurgitation. There is no pericardial effusion. Darrell Vogel MD (Electronically Signed) Final Date: 10 September 2024 14:48 S
[2024-09-10 13:26] LABS: Troponin 5 6HR 28.73 ng/L (0-10); Troponin 5 6HR Delta 0.73 ng/L (0-12)
[2024-09-10] MEDS: sodium chloride 0.9% 1,000 ML 75 ML IV (13:31)
--- NOTE | 2024-09-10 15:01 | ECG_ITS ---
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: : 1955 Requested By: Lucas Monroe Order Number: [id number] Reading MD: NICKY KIRK Measurements Intervals [place] Rate: 88 P: 76 MN: 229 QRS: 29 QRSD: 109 T: 22 QT: 426 QTc: 516 Interpretive Statements SINUS RHYTHM WITH FIRST DEGREE AV BLOCK LOW QRS VOLTAGE IN PRECORDIAL LEADS [QRS DEFLECTION < 1.0 mV IN CHEST LEADS] POSSIBLE ANTERIOR MYOCARDIAL INFARCTION , PROBABLY OLD [30 ms Q WAVE IN V3/V4, OR R < 0.2 mV IN V4] Compared to ECG 09/10/2024 12:38:25 No significant changes Electronically Signed On 09-14-2024 21:54:35 CDT by NICKY KIRK [id number]
[2024-09-10 15:05] LABS: Iron 18 ug/dL (37-145); Percent Saturation 5.2 % (20-50); Thyroid Stimulating Hormone 0.33 uIU/mL (0.27-4.20); Total Iron Binding Capacity 346 mcg/dl; Unsaturated Iron Binding 328 ug/dL (112-347)
[2024-09-10] MEDS: heparin 5,000 unit/mL INJ 1 mL 5000 UNIT SUBCUT ×2 (15:05→22:23)
[2024-09-10] MEDS: pantoprazole 40 mg SDV IVP (15:10)
--- NOTE | 2024-09-10 15:18 | PHA.VACGOAL ---
Vancomycin Goal - Goal Vancomycin Goal:: 10-15 mg/L Vancomycin Indication:: Other - Therapy Current therapy:: Pip/Tazo Day of therpy:: Day []of [] . Actual body weight (kg): 274 lb - Data Labs: WBC 11.55 10^3/uL (3.29-11.43) H 09/10/24 07:02 RBC 4.50 10^6/uL (3.85-5.65) 09/10/24 07:02 Hgb 12.60 g/dL (11.27-16.99) 09/10/24 07:02 Hct 40.4 % (36-47) 09/10/24 07:02 MCV 89.8 fl (85-98) 09/10/24 07:02 MCH 28.0 pg (27-33) 09/10/24 07:02 MCHC 31.2 g/dL (30-55) 09/10/24 07:02 RDW 16.1 % (12.1-15.1) H 09/10/24 07:02 Sodium 138 mmol/L (136-145) 09/10/24 07:02 Potassium 4.3 mmol/L (3.5-5.1) 09/10/24 07:02 Chloride 97 mmol/L (98-107) L 09/10/24 07:02 Carbon Dioxide 29 mmol/L (22-29) 09/10/24 07:02 Anion Gap 16.3 (5-19) 09/10/24 07:02 BUN 36 mg/dL (8-23) H 09/10/24 07:02 Creatinine 1.2 mg/dL (0.5-0.9) H 09/10/24 07:02 GFR Calculation Not Reportable 09/10/24 07:02 Last dialysis session:: N/A Treatment plan:: new consult Regimen:: 1000 MG DOSE GIVEN IN ER MAINTENANCE DOSE OF 1250 MG Q12H PER DOSING PROTOCOL Follow up:: WILL CONTINUE TO MONITOR AND FOLLOW UP DAILY
[2024-09-10 15:33] LABS: Vitamin B12 904 pg/mL (232-1245)
[2024-09-10 15:42] LABS: Estmated Average Glucose 194; Hemoglobin A1C 8.4 % (4.0-6.0)
[2024-09-10 17:20] LABS: Glucose Point of Care 257 mg/dL (70-110)
[2024-09-10 17:25] LABS: Adenovirus Not Detected (NOT DETECT); Chlamydia Pneumoniae Not Detected (NOT DETECT); Coronavirus 229E,HKU1,NL63,OC4 Not Detected (NOT DETECT); Human Metapneumovirus Not Detected (NOT DETECT); Human Rhinovirus/Enterovirus Not Detected (NOT DETECT); Influenza A Not Detected (NOT DETECT); Influenza A H1 Not Detected (NOT DETECT); Influenza A H1-2009 Not Detected (NOT DETECT); Influenza A H3 Not Detected (NOT DETECT); Influenza B Not Detected (NOT DETECT); Mycoplasma Pneumoniae Not Detected (NOT DETECT); Parainfluenza Virus Type 1 Not Detected (NOT DETECT); Parainfluenza Virus Type 2 Not Detected (NOT DETECT); Parainfluenza Virus Type 3 Not Detected (NOT DETECT); Parainfluenza Virus Type 4 Not Detected (NOT DETECT); Respiratory Syncytial Virus A Not Detected (NOT DETECT); Respiratory Syncytial Virus B Not Detected (NOT DETECT); SARS-COV-2 Not Detected (NOT DETECT)
--- NOTE | 2024-09-10 17:58 | PM.HP ---
Providers/Chief Complaint Admitting Physician: Lucas Monroe MD Primary Care Provider: Summer Strickland DO Chief Complaint: ams History of Present Illness Michelle Keita is a 69 year old female with past medical history of hypertension, type 2 diabetes mellitus, hypothyroidism, obstructive sleep apnea, congestive heart failure with known EF of 15% in the past improved on the last echocardiogram, COPD not chronically on oxygen, history of MRSA joint infection post BKA presents to the ER today from assisted living because of altered mental status. As per the patient he has been having difficulty in breathing, has been more sleepy than usual specially in the morning for last 1 week. Today after having breakfast while sitting in her recliner she was feeling sleepy and she was moved to the bed. And next thing she remembers is being in the ER. In the ER she was found to be hypotensive, hypoxic requiring up to 4 L of oxygen supplementation, required 1 L of IV fluid bolus after which her blood pressures improved from 80 systolic to 110s systolic. Patient is awake and alert x 3 on examination. Saturating over 92% on 4 L. ABG done in the ER showed hypoxia down to 66% PaO2 on 4 L of oxygen supplementation with respiratory alkalosis. Drug screen was positive for opiates. She denies any nausea, vomiting, headache, dizziness, sick contacts. Denies any changes in her medications recently. Denies any chest pain. Review of Systems General: Reports: 10 or more systems reviewed and unremarkable except in HPI and below Const: Denies: fever(s), chills, body aches, change in appetite, change in weight, malaise, night sweats, diaphoresis, change in sleep pattern, daytime sleepiness or snoring Eyes: Denies: change in vision, blurry vision, photophobia, eye discomfort or eye discharge ENMT: Denies: throat pain, enlarged tonsils, hoarseness, mouth pain, oral sores, dry mouth, tinnitus, nasal congestion or post nasal drip Card: Denies: chest pain, palpitations, irregular heart rhythm, edema, swelling of feet/ankles, lightheadedness, syncope, pre-syncope, dyspnea on exertion, orthopnea, leg pain with exertion or acrocyanosis Resp: Denies: dyspnea, productive cough, non-productive cough, wheezing, stridor, pain on inspiration, change in phlegm color, hemoptysis or chest congestion GI: Denies: abdominal pain, nausea, vomiting, hematemesis, coffee ground emesis, dysphagia, heartburn, diarrhea, constipation, bloating, GI cramping, change in bowel habits, pain on defecation, hematochezia or melena : Denies: flank pain, dysuria, urinary frequency, urinary urgency, urinary hesitancy, nocturia or hematuria Musc: Denies: neck pain, back pain, extremity pain, joint pain, joint swelling, joint redness, joint stiffness or limited range of motion Neuro: Denies: headache(s), numbness in extremities, weakness in extremities, sensory changes, lack of coordination, difficulty walking, frequent falls, dizziness, vertigo, confusion, Slurred speech present, difficulty communicating thoughts or seizure-like activity Psych: Denies: anxiety, depression, mood swings, panic attacks, hopelessness or irritability Endo: Denies: polyuria, polydipsia, tired all the time, cold intolerance, excessive sweating, flushing or heat intolerance Chay/Lymph: Denies: easy bruising or easy bleeding All/Imm: Denies: tongue swelling, facial swelling or acute wheezing Medications/Allergies Home Medications ?Medication ?Instructions ?Recorded ?Confirmed ?Last Taken ?Type aspirin 81 mg tablet,delayed 81 mg PO QAM 10/08/19 09/10/24 09/10/24 History release (Adult Aspirin Regimen) empagliflozin 25 mg-linagliptin 5 1 tab PO QAM 10/08/19 09/10/24 09/10/24 History mg tablet (Glyxambi) Held on 07/24/22. Instructions: Resume on 07/31/22. febuxostat 80 mg tablet (Uloric) 80 mg PO QAM 10/08/19 09/10/24 09/10/24 History levothyroxine 100 mcg tablet 100 mcg PO QAM 10/08/19 09/10/24 09/10/24 History pramipexole 1.5 mg tablet,extended 1.5 mg PO BEDTIME 10/08/19 09/10/24 09/09/24 History release 24 hr (Mirapex ER) Held on 07/24/22. Instructions: Resume on 07/26/22. simvastatin 40 mg tablet (Zocor) 40 mg PO QPM 10/08/19 09/10/2409/09/25 History ascorbic acid (vitamin C) 500 mg 500 mg PO QAM 07/20/22 09/10/24 09/10/24 History tablet (Vitamin C) azelastine 137 mcg (0.1 %) nasal 2 spray intranasal BID 07/20/22 09/10/24 09/10/24 History spray calcium 600 mg (as 1 tab PO BID 07/20/22 09/10/24 09/10/24 History carbonate)-vitamin D3 5 mcg (200 unit) tablet denosumab 60 mg/mL subcutaneous See Rx Instructions .Route .COMPLEX 07/20/22 09/10/24 05/13/24 History syringe (Prolia) fluticasone fur. 100 mcg-umeclid 1 ea inhalation QAM 07/20/22 09/10/24 09/10/24 History 62.5 mcg-vilant 25 mcg inhalat.powder (Trelegy Ellipta) fluticasone propionate 50 1 spray intranasal DAILY 07/20/22 09/10/24 09/09/24 History mcg/actuation nasal spray,suspension insulin glargine 100 unit/mL (3 76 unit SUBCUT BID 07/20/22 09/10/24 09/10/24 History mL) subcutaneous pen (Lantus Solostar U-100 Insulin) insulin lispro 100 unit/mL See Rx Instructions .Route .COMPLEX 07/20/22 09/10/24 Unknown History subcutaneous pen jowxwjzb-bzj-sfmxx ac 400 1 tab PO DAILY 07/20/22 09/10/24 09/09/24 History mcg-calcium carb 500 mg-vit K1 20 mcg tablet (Women's 50 Plus Daily Formula) Saccharomyces boulardii 250 mg 250 mg PO QPM 09/27/22 09/10/24 09/09/24 History capsule (Daily Probiotic (S. boulardii)) celecoxib 100 mg capsule (Celebrex) 100 mg PO DAILY 09/27/22 09/10/24 09/10/24 History cetirizine 10 mg tablet (Zyrtec) 10 mg PO BID 09/27/22 09/10/24 09/10/24 History guaifenesin 600 mg tablet, 600 mg PO BID 09/27/22 09/10/24 09/10/24 History extended release 12 hr (Mucinex) omega 0-lkn-utp-fish oil 100 1 cap PO BID 09/27/22 09/10/24 09/10/24 History mg-160 mg-1,000 mg capsule (Fish Oil) tramadol 50 mg tablet 50 - 100 mg PO Q6H PRN Pain 09/27/22 09/10/24 Unknown History clopidogrel 75 mg tablet (Plavix) 75 mg PO QAM 12/27/23 09/10/24 09/10/24 History nystatin 100,000 unit/gram topical 1 applic topical DAILY 12/27/23 09/10/24 09/09/24 History cream pantoprazole 40 mg tablet,delayed 40 mg PO QAM 12/27/23 09/10/24 09/10/24 History release (Protonix) acetaminophen 325 mg tablet 650 mg PO Q6H PRN pain /elevated 09/10/24 09/10/24 Unknown History temp bisacodyl 5 mg tablet 5 mg PO DAILY PRN Constipation 09/10/24 09/10/24 Unknown History buspirone 30 mg tablet 30 mg PO BID anxiety 09/10/24 09/10/24 09/10/24 History cholecalciferol (vitamin D3) 50 50 mcg PO BID 09/10/24 09/10/24 09/10/24 History mcg (2,000 unit) capsule (Vitamin D3) diclofenac sodium 1 % topical gel 4 g topical QID 09/10/24 09/10/24 09/09/24 History duloxetine 60 mg capsule,delayed 60 mg PO QAM 09/10/24 09/10/24 09/10/24 History release (Cymbalta) ferrous sulfate 325 mg (65 mg 325 mg PO BID 09/10/24 09/10/24 09/10/24 History iron) tablet hydrocodone 5 mg-acetaminophen 325 1 tab PO Q8H PRN Moderate Pain 09/10/24 09/10/24 Unknown History mg tablet (Scale Score 5-6) icosapent ethyl 1 gram capsule 2 g PO BID 09/10/24 09/10/24 09/10/24 History (Vascepa) insulin lispro 100 unit/mL 12 unit SUBCUT QID 09/10/24 09/10/24 09/10/24 History subcutaneous pen lidocaine 2.5 %-prilocaine 2.5% 1 applic topical DAILY PRN Pain 09/10/24 09/10/24 Unknown History and m.salicy 30 %-menth 10 % top cream loperamide 2 mg capsule 2 mg PO Q3H PRN loose 09/10/24 09/10/24 Unknown History stools/diarrhea ondansetron 4 mg disintegrating 1 mg PO Q4H PRN nausea/emesis 09/10/24 09/10/24 Unknown History tablet oxybutynin chloride 10 mg 10 mg PO QAM 09/10/24 09/10/24 09/10/24 History tablet,extended release 24 hr pregabalin 50 mg capsule See Rx Instructions .Route .COMPLEX 09/10/24 09/10/24 09/10/24 History sennosides 8.6 mg-docusate sodium 1 tab PO QAM 09/10/24 09/10/24 09/10/24 History 50 mg tablet (Senokot-S) tirzepatide 15 mg/0.5 mL 15 mg SUBCUT Q7D 09/10/24 09/10/24 09/06/24 History subcutaneous pen injector (Mounjaro) tizanidine 2 mg tablet 2 mg PO TID 09/10/24 09/10/24 09/10/24 History torsemide 20 mg tablet See Rx Instructions .Route .COMPLEX 09/10/24 09/10/24 09/10/24 History trazodone 100 mg tablet 100 mg PO BEDTIME 09/10/24 09/10/24 09/09/24 History triamcinolone acetonide 0.1 % 1 applic topical BID 09/10/24 09/10/24 09/09/24 History topical cream Allergies Allergy/AdvReac Type Severity Reaction Status Date / Time lisinopril Allergy Severe kidney Verified 09/10/24 14:53 failure Sulfa (Sulfonamide Allergy Intermediate ALGY-Rash Verified 09/10/24 14:53 Antibiotics) grass pollen Allergy Mild It's just Verified 09/10/24 14:53 a mild allergy. PHILIP Inhibitors Allergy Unknown Unknown Verified 09/10/24 14:53 allopurinol Allergy Unknown Unknown Verified 09/10/24 14:53 Beta-Blockers Allergy Unknown Unknown Verified 09/10/24 14:53 (Beta-Adrenergic Bloc (Beta-Blockers (Beta-Adrenergic Blocking Agts)) nickel Allergy Unknown Unknown Verified 09/10/24 14:53 polyethylene glycol 3350 AdvReac Mild ADR-Nausea Verified 09/10/24 14:53 (From Miralax) angiotensin receptor Allergy Unknown Unknown Uncoded 09/10/24 14:53 antagonists PFSH Acute PFSH: Medical History (Updated 09/10/24 @ 18:48 by Lucas Monroe MD) Abscess Infected prosthetic knee joint Alkalosis, metabolic Sinusitis Flash pulmonary edema Aortic stenosis UTI (urinary tract infection) Anasarca CHF (congestive heart failure) Encephalopathy acute Altered mental status Diabetes Sleep apnea COPD (chronic obstructive pulmonary disease) Hyperlipidemia CHF (congestive heart failure) Hypertension Hypothyroid Acute cystitis Weakness Generalized anxiety disorder Moderate episode of recurrent major depressive disorder Psychiatric care Surgical History (Updated 09/10/24 @ 18:48 by Lucas Monroe MD) History of tubal ligation History of colon surgery History of cholecystectomy History of neck surgery H/O total knee replacement lt x2 rt x 1 H/O carpal tunnel repair Family History Other Cancer Diabetes Hypertension Hypothyroidism Social History Smoking and tobacco/nicotine status: former use of tobacco/nicotine Quit status (tobacco/nicotine): has quit using Year quit tobacco: 2009 Alcohol intake: never Substance/Drug Use: never Adopted: No Caregiver/support person: Yes (sets up medication and wound bandage change 2x week) Lives independently: Yes Household members: children Housing: Apartment Marital status: Number of children: 3 Number of grandchildren: 6 Highest education level completed: Some College, No Degree service: No Current occupational status: disabled Current occupation: disability since 1992 Current occupational exposures/hazards: No Pets and animals: No Leisure activites: other Leisure activities details: watch TV,crafts Sexually active: No Do you think of yourself as: Straight/Heterosexual Current gender identity: Female Nida/Faith: Religious Special nida needs: No Agree to transfusion: Yes Female Reproductive History: Para: 3 Vitals/I&O/Wt Last Vital Signs Temp 100.1 F H 09/10/24 10:04 Pulse 94 09/10/24 17:00 Resp 16 09/10/24 17:00 BP 130/61 09/10/24 17:00 Pulse Ox 94 04/02/25 17:00 O2 Del Method Nasal Cannula 09/10/24 17:16 O2 Flow Rate 4 09/10/24 17:00 09/10/24 09/10/24 09/10/24 06:59 14:59 22:59 Intake Total 1400 / 1400 Balance 1400 / 1400 Weight last 48 hrs Weight 124.284 kg Physical Exam Narrative: General: No acute distress, AO x3, morbidly obese, slow to respond, on nasal cannula HEENT: PERRLA, pupils bilaterally equal and reactive Chest: Normal vesicular breath sounds, diffuse rhonchi all over lung erazo, coarse crackles present right more than left, equal good air entry bilaterally CVS: S1-S2 regular, no murmurs, tachycardia, no gallops, no rubs Abdomen: Soft, nontender, no organomegaly, bowel sounds present Neuro: No focal deficits, no facial deformity, AO x3, power 5/5 in all limbs Urinary Catheter Management: Hdez: Cath Placed During This Visit: yes Urinary Catheter Date of Insertion: 09/10/24 Urinary Catheter Time of Insertion: 11:27 Quick SOFA Score: Respiratory Rate: 16 Blood Pressure: 84/46 Garo Coma Scale: 10 qSOFA Score: 2 If qSOFA score 2 or greater, continue: PaO2/FiO2 Ratio (mmHg): 183 Blood Pressure Mean: 59 Bilirubin (mg/dl): 0.5 Platelets (x10?/ml): 146 Creatinine (mg/dl): 1.2 SOFA Score: 8 Evaluation: Current stage of sepsis: severe sepsis Sepsis stage criteria used: [facility] Sep-1 and Sepsis-3 Crystalloid fluids: less than 30 mL/kg crystalloid fluids ordered Blood cultures ordered: Yes Possible source: pulmonary Focused Exam: Vital signs: Temp Pulse Resp BP Pulse Ox O2 Del Method O2 Flow Rate 09/10/24 18:24 98.9 F 09/10/24 17:16 Nasal Cannula 09/10/24 17:00 94 16 130/61 94 Nasal Cannula 4 09/10/24 15:15 93 117/54 92 09/10/24 15:10 92 117/54 94 09/10/24 15:05 94 117/54 93 09/10/24 15:05 92 16 94 Nasal Cannula 3 09/10/24 15:03 94 Nasal Cannula 3 09/10/24 15:00 91 15 117/57 92 04/02/25 14:55 93 20 H 117/57 94 09/10/24 14:50 93 23 H 117/57 93 09/10/24 14:45 93 15 117/57 91 09/10/24 14:40 95 15 113/48 93 09/10/24 14:35 93 17 113/48 94 09/10/24 14:30 94 12 113/48 94 09/10/24 14:25 93 22 H 108/49 92 09/10/24 14:20 97 21 H 108/49 92 09/10/24 14:15 94 17 108/49 92 09/10/24 14:10 96 17 105/48 92 09/10/24 14:05 96 17 105/48 93 09/10/24 14:00 94 14 105/48 91 09/10/24 13:55 94 14 118/47 92 09/10/24 13:54 94 18 118/47 93 09/10/24 13:32 96 16 103/51 90 Nasal Cannula 4 09/10/24 11:25 102 H 16 84/46 91 Nasal Cannula 4 09/10/24 10:04 100.1 F H 113 H 21 H 93/45 88 L Nasal Cannula 4 09/10/24 09:09 103.1 F H 09/10/24 09:00 121 H 16 117/50 91 Nasal Cannula 4 09/10/24 07:54 111 H 25 H 97 Nasal Cannula 4 09/10/24 07:23 111 H 09/10/24 07:12 113 H 24 H 94 Nasal Cannula 4 Date exam was performed: 09/10/24 Time exam was performed: 12:10 Sepsis Screen No Definite Risk 09/10/24 13:32 09/10/24 Respiratory Rate 16 breaths/min (12 - 18) 09/10/24 17:00 09/10/24 Blood Pressure 130/61 mmHg 09/10/24 17:00 09/10/24 Garo Coma Scale Score 15 09/10/24 17:16 09/10/24 Quick SOFA Score 0 09/10/24 15:22 09/10/24 SOFA Score: ABG PO2/FiO2 Ratio 183 09/10/24 07:16 09/10/24 Garo Coma Scale Score 15 09/10/24 17:16 09/10/24 Blood Pressure Mean 84 mmHg 09/10/24 17:00 09/10/24 Total Bilirubin 0.5 mg/dL (0.15-1.2) 09/10/24 07:02 09/10/24 Platelet Count 146 10^3/cmm (157-399) L 09/10/24 07:02 09/10/24 Creatinine 1.2 mg/dL (0.5-0.9) H 09/10/24 07:02 09/10/24 SOFA Score 5 09/10/24 15:22 09/10/24 Data 09/10/24 07:02 09/10/24 07:02 Micro: Microbiology 09/10/24 07:06 Bacterial Antigens - Final Urine Kidney 09/10/24 07:02 Blood Culture - Preliminary Blood SPECIMEN COLLECTED 09/10/24 07:00 Blood Culture - Preliminary Blood SPECIMEN COLLECTED A&P Assessment and plan (1) Sepsis: SIRS: Tachycardic, Febrile, Leukocytosis Source: Pneumonia versus UTI End organ damage: Acute infectious encephalopathy Lactic acid within normal limits Patient did not receive full 30 mL/kg BW given history of congestive heart failure in the past. Monitor blood pressures. Keep mean artery pressure 65 mmHg. Check blood culture, trend procalcitonin, bacterial antigen. History of MRSA infection in the past. Empirically start on IV vancomycin and Zosyn for now. De-escalate antibiotics as per culture results. (2) Acute alteration in mental status: Most likely in setting of hypoxia versus sepsis versus polypharmacy. Urine drug screen positive for opiates. Continue to monitor. Patient takes duloxetine 60 mg oral daily, trazodone 100 mg nightly, BuSpar 30 mg twice daily, pregabalin 50 mg every morning, 100 mg every afternoon, tizanidine 2 mg 3 times daily at home. Change tizanidine to as needed, continue with duloxetine and trazodone. Change BuSpar to 15 mg twice daily. Hold off on pregabalin. (3) Acute hypoxic respiratory failure: History of COPD, congestive heart failure and obstructive sleep apnea. Cannot rule out pneumonia. Check CTA. Oxygen supplementation keeping saturation over 90%. Empiric antibiotic as above. Aggressive pulmonary toilet with incentive spirometry. Pulmicort twice daily, DuoNeb every 6 hour. Check respiratory viral panel. Start on Solu-Medrol 40 mg Q8 hourly for COPD exacerbation (4) COPD (chronic obstructive pulmonary disease): As above. (5) CHF (congestive heart failure): Past history. Check echocardiogram. Strict input and output charting for now. Hold off on diuretics for now. Patient clinically mildly dehydrated. NS at 75 cc/h. Watch for fluid overload. (6) Hypertension: Goal blood pressure less than 140/90 mmHg. Hypotensive on arrival. Goal mean artery pressure over 65. Can use Levophed if needed. (7) Insulin dependent type 2 diabetes mellitus: Check A1c. Takes Lantus 76 units twice daily, lispro 12 units 4 times daily along with sliding scale at home. Continue with Lantus 50 units twice daily, insulin sliding scale at high dose protocol. Uptitrate as per requirements. (8) Generalized anxiety disorder: Plan CODE STATUS: Discussed in detail with the patient. Full code. N.p.o. for now. Advance diet as per speech evaluation. Physical therapy. Protonix for PUD prophylaxis Heparin for DVT prophylaxis PDMP PDMP Reviewed: Not Reviewed Attestations Medical Necessity Statement*: Requires further hospitalization for management of severe sepsis in setting of pneumonia, altered mental status in a patient with uncontrolled type 2 diabetes mellitus, COPD exacerbation, history of CHF Diagnoses Sepsis A41.9 Acute alteration in mental status R41.82 Acute hypoxic respiratory failure J96.01 COPD (chronic obstructive pulmonary disease) J44.9 CHF (congestive heart failure) I50.9 Hypertension I10 Insulin dependent type 2 diabetes mellitus E11.9; Z79.4 Generalized anxiety disorder F41.1
[2024-09-10] MEDS: insulin lispro 100 unit/1 mL SUBCUT ×2 (18:00→22:23)
[2024-09-10] MEDS: docusate sodium 100 mg Capsule PO (18:00)
[2024-09-10] MEDS: atorvastatin 40 mg Tablet PO (18:00)
[2024-09-10] MEDS: insulin glargine 100 units/1 mL 50 UNIT SUBCUT (18:04)
--- NOTE | 2024-09-10 18:33 | PC.NURSE ---
Assumed care from Lisa Loo RN at this time.
[2024-09-10] MEDS: budesonide 0.5 mg/2 mL Neb INHALATION (20:19)
[2024-09-10 22:07] LABS: Glucose Point of Care 215 mg/dL (70-110)
[2024-09-10] MEDS: trazodone 100 mg Tablet PO (22:19)
[2024-09-11] VITALS (89 sets, daily range): BP systolic 92–166; BP diastolic 39–98; PULSE 74–110; RESP 8–27; TEMP 36.6–37.3; O2SAT 75–100; BMI 48.6
[2024-09-11] MEDS: ipratropium-albuterol 3 mL Neb INHALATION ×4 (02:23→19:14)
[2024-09-11] MEDS: piperacillin-tazobactam 3.375 GM in sodium chloride 0.9% (plus) 50 ML IV ×3 (02:39→22:12)
[2024-09-11] MEDS: morphine 4 mg/mL SDV 1 mL 2 MG IVP ×2 (02:39→09:08)
[2024-09-11] MEDS: vancomycin 1,250 MG/250 ML PIGGYBACK 166.67 MG IV (02:40)
[2024-09-11] MEDS: levothyroxine 100 mcg Tablet PO (05:54)
[2024-09-11] MEDS: duloxetine 60 mg Capsule PO (05:54)
[2024-09-11] MEDS: clopidogrel 75 mg Tablet PO (05:54)
[2024-09-11] MEDS: aspirin 81 mg EC Tablet PO (05:54)
[2024-09-11] MEDS: heparin 5,000 unit/mL INJ 1 mL 5000 UNIT SUBCUT ×2 (05:55→14:19)
[2024-09-11] MEDS: oxybutynin chloride XL 5 MG TABLET 10 MG PO (06:15)
[2024-09-11 06:51] LABS: Basophils # 0.1 10^3/uL (0.0-0.1); Basophils % 0.6 %; Eosinophils # 0.3 10^3/uL (0.0-0.8); Eosinophils % 3.8 %; Hematocrit 39.4 % (36-47); Lymphocytes # 1.1 10^3/uL (0.8-4.8); Lymphocytes % 12.9 %; Mean Corpuscular HGB Conc 29.7 g/dL (30-55); Mean Corpuscular Hemoglobin 27.8 pg (27-33); Mean Corpuscular Volume 93.6 fl (85-98); Mean Platelet Volume 10.6 fL (7.4-10.4); Monocytes # 0.6 10^3/uL (0.2-0.9); Monocytes % 6.9 %; Neutrophils # 6.19 10^3/uL (1.8-7.7); Neutrophils % 75.3 %; Nucleated Red Blood Cells % 0 %; Platelet Count 133 10^3/cmm (157-399); Red Blood Count 4.21 10^6/uL (3.85-5.65); Red Cell Distribution Width 16.7 % (12.1-15.1); White Blood Count 8.22 10^3/uL (3.29-11.43)
[2024-09-11 07:03] LABS: Alanine Aminotransferase 16 U/L (0-33); Albumin Level 3.3 g/dL (3.5-5.2); Alkaline Phosphatase 102 U/L (35-105); Anion Gap 14.4 (5-19); Aspartate Amino Transferase 23 U/L (0-32); Blood Urea Nitrogen 30 mg/dL (8-23); Carbon Dioxide 29 mmol/L (22-29); Chloride 101 mmol/L (98-107); Creatinine Clr Calc Pharmacy 56.0254; Globulin 4.5 g/dL (1.3-4.6); Glucose 151 mg/dL (65-115); Magnesium 2.5 mg/dL (1.7-2.3); Osmolality Calculated 299 mOsm/kg (285-295); Phosphorus 2.8 mg/dL (2.5-4.5); Potassium 4.4 mmol/L (3.5-5.1); Sodium 140 mmol/L (136-145); Total Bilirubin 0.6 mg/dL (0.15-1.2); Total Protein 7.8 g/dL (6.6-8.7)
[2024-09-11 07:05] LABS: Chol HDL Ratio 3.76 mg/dL (0.0-4.40); Cholesterol 109 mg/dL (0-200); HDL Cholesterol 29 mg/dL (60-100); LDL Cholesterol Calculated 50 mg/dL (50-129); LDL HDL Ratio 1.72 RATIO (0.00-3.22); Triglycerides 151 mg/dL (0-150)
[2024-09-11 07:09] LABS: Procalcitonin 0.33 ng/mL (0-0.5)
[2024-09-11 07:41] LABS: Folate Level > 20.0 ng/mL (4.8-37.3)
[2024-09-11] MEDS: budesonide 0.5 mg/2 mL Neb INHALATION ×2 (08:29→19:14)
[2024-09-11 08:50] LABS: Glucose Point of Care 416 mg/dL (70-110)
[2024-09-11] MEDS: BuSPIRONE 10 mg Tablet 15 MG PO ×2 (09:07→18:16)
[2024-09-11] MEDS: docusate sodium 100 mg Capsule PO ×2 (09:08→18:16)
[2024-09-11] MEDS: insulin lispro 100 unit/1 mL SUBCUT ×4 (09:08→20:38)
[2024-09-11] MEDS: insulin glargine 100 units/1 mL 50 UNIT SUBCUT (09:09)
[2024-09-11] MEDS: sodium chloride 0.9% 1,000 ML 75 ML IV (10:10)
[2024-09-11] MEDS: insulin glargine 100 units/1 mL 25 UNIT SUBCUT (10:29)
[2024-09-11 12:04] LABS: Glucose Point of Care 227 mg/dL (70-110)
[2024-09-11] MEDS: vancomycin 1,250 MG/250 ML PIGGYBACK 166 MG IV (12:09)
--- NOTE | 2024-09-11 13:17 | P.PN_ITS ---
Subjective 2 Subjective: No acute events overnight. Patient has remained in the ER overnight. Today morning seen in ICU. More awake and alert. On 2 L of oxygen supplementation. States feeling better. Denies any nausea, vomiting, headache. Blood pressure is better controlled. Appreciate urine output. Vitals/I&O/Wt Last Vital Signs Temp 98.9 F 09/10/24 18:24 Pulse 100 09/11/24 08:38 Resp 18 09/11/24 09:08 BP 153/70 09/11/24 08:06 Pulse Ox 92 09/11/24 09:08 O2 Del Method Nasal Cannula 09/11/24 08:30 O2 Flow Rate 2 09/11/24 08:30 FiO2 35 09/11/24 02:23 09/10/24 09/11/24 09/11/24 22:59 06:59 14:59 Intake Total 573.75 / 1973.75 50 / 2023.75 300 / 300 Output Total 800 / 800 1800 / 1800 Balance -226.25 / 1173.75 50 / 1223.75 -1500 / -1500 Weight last 48 hrs Weight 124.5 kg Weight 124.284 kg Physical Exam 2 Narrative: General: No acute distress, AO x3, morbidly obese, on nasal cannula HEENT: PERRLA, pupils bilaterally equal and reactive Chest: Normal vesicular breath sounds, diffuse rhonchi all over lung erazo, coarse crackles present right more than left, equal good air entry bilaterally CVS: S1-S2 regular, no murmurs, tachycardia, no gallops, no rubs Abdomen: Soft, nontender, no organomegaly, bowel sounds present Neuro: No focal deficits, no facial deformity, AO x3, power 5/5 in all limbs Urinary Catheter Management: Hdez: Cath Placed During This Visit: yes Reason for Continuing Indwelling Catheter: Other Urinary Catheter Date of Insertion: 09/10/24 Urinary Catheter Time of Insertion: 11:27 Data 09/11/24 06:36 09/11/24 06:36 Micro: Microbiology 09/10/24 07:02 Blood Culture - Preliminary Blood NEGATIVE TO DATE 09/10/24 07:00 Blood Culture - Preliminary Blood NEGATIVE TO DATE 09/10/24 07:06 Bacterial Antigens - Final Urine Kidney A&P Assessment and plan (1) Sepsis: SIRS: Tachycardic, Febrile, Leukocytosis Source: Pneumonia versus UTI End organ damage: Acute infectious encephalopathy Lactic acid within normal limits Patient did not receive full 30 mL/kg BW given history of congestive heart failure in the past. Monitor blood pressures. Keep mean artery pressure 65 mmHg. Check blood culture, trend procalcitonin, bacterial antigen. History of MRSA infection in the past. Empirically start on IV vancomycin and Zosyn for now. De-escalate antibiotics as per culture results. (2) Acute alteration in mental status: Resolved. Most likely in setting of hypoxia versus sepsis versus polypharmacy. Urine drug screen positive for opiates. Continue to monitor. Patient takes duloxetine 60 mg oral daily, trazodone 100 mg nightly, BuSpar 30 mg twice daily, pregabalin 50 mg every morning, 100 mg every afternoon, tizanidine 2 mg 3 times daily at home. Continue with tizanidine to as needed, continue with duloxetine and trazodone. Change BuSpar to 15 mg twice daily. Hold off on pregabalin. (3) Acute hypoxic respiratory failure: History of COPD, congestive heart failure and obstructive sleep apnea. Appreciate CTA results. Mild concern for pneumonitis. No PE. Oxygen supplementation keeping saturation over 90%. Empiric antibiotic as above. Aggressive pulmonary toilet with incentive spirometry. Pulmicort twice daily, DuoNeb every 6 hour. Negative respiratory viral panel. Continue with Solu-Medrol 40 mg Q8 hourly for COPD exacerbation. In next 24 hours. (4) COPD (chronic obstructive pulmonary disease): As above. (5) CHF (congestive heart failure): Past history. Echocardiogram shows EF of 60%, mild aortic valve stenosis. . Strict input and output charting for now. Hold off on diuretics for now. Euvolemic today. DC IV fluids. (6) Hypertension: Goal blood pressure less than 140/90 mmHg. Hypotensive on arrival. Goal mean artery pressure over 65. Continue to monitor. If blood pressure is elevated or stable over the next 24 hours will start on oral antihypertensive. (7) Insulin dependent type 2 diabetes mellitus: A1c 8.4. Uncontrolled type 2 diabetes mellitus. No concern for DKA. Takes Lantus 76 units twice daily, lispro 12 units 4 times daily along with sliding scale at home. Will Blood sugars elevated. Switch to Lantus at home dose of 75 units twice daily, continue with, insulin sliding scale at high dose protocol. Uptitrate as per requirements. (8) Generalized anxiety disorder: Plan Obstructive sleep apnea: Continue with home BiPAP. CKD versus VASYL: Last CMP from 2 years ago showed baseline creatinine of 1. Currently on 1.2. Most likely CKD. Continue to monitor renal functions daily. Medical reconciliation done for nephrotoxic drugs. CODE STATUS: Discussed in detail with the patient. Full code. Carb consistent. Advance diet as per speech evaluation. Physical therapy. Protonix for PUD prophylaxis Heparin for DVT prophylaxis Transfer to [facility] floor. PDMP PDMP Reviewed: Not Reviewed Attestations 2 Medical Necessity Statement*: Requires further hospitalization for management of altered mental status in setting of severe sepsis, pneumonia, uncontrolled type 2 diabetes mellitus Diagnoses Sepsis A41.9 Acute alteration in mental status R41.82 Acute hypoxic respiratory failure J96.01 COPD (chronic obstructive pulmonary disease) J44.9 CHF (congestive heart failure) I50.9 Hypertension I10 Insulin dependent type 2 diabetes mellitus E11.9; Z79.4 Generalized anxiety disorder F41.1
[2024-09-11] MEDS: pantoprazole 40 mg SDV IVP (14:19)
--- NOTE | 2024-09-11 15:13 | PC.NURSE ---
Report was given to ENRIKE Sheikh in med surge. Patient was transferred with all belongings. Patient was stable upon transfer.
[2024-09-11 17:06] LABS: Glucose Point of Care 195 mg/dL (70-110)
[2024-09-11] MEDS: atorvastatin 40 mg Tablet PO (18:16)
[2024-09-11] MEDS: insulin glargine 100 units/1 mL 75 UNIT SUBCUT (18:17)
[2024-09-11 20:23] LABS: Glucose Point of Care 280 mg/dL (70-110)
[2024-09-11] MEDS: trazodone 100 mg Tablet PO (22:16)
[2024-09-12] VITALS (11 sets, daily range): BP systolic 112–162; BP diastolic 47–68; PULSE 81–98; RESP 8–18; TEMP 36.5–37.1; O2SAT 93–97
[2024-09-12] MEDS: heparin 5,000 unit/mL INJ 1 mL 5000 UNIT SUBCUT ×2 (00:10→05:47)
[2024-09-12] MEDS: HYDROcodone-acetaminophen 5-325 mg Tablet 1 TAB PO ×2 (00:12→12:24)
[2024-09-12] MEDS: vancomycin 1,250 MG/250 ML PIGGYBACK 166 MG IV (01:56)
[2024-09-12] MEDS: tizanidine 4 mg Tablet 2 MG PO (02:03)
[2024-09-12] MEDS: ipratropium-albuterol 3 mL Neb INHALATION ×3 (02:31→13:17)
[2024-09-12] MEDS: piperacillin-tazobactam 3.375 GM in sodium chloride 0.9% (plus) 50 ML IV (05:46)
[2024-09-12] MEDS: duloxetine 60 mg Capsule PO (05:47)
[2024-09-12] MEDS: oxybutynin chloride XL 5 MG TABLET 10 MG PO (05:47)
[2024-09-12] MEDS: clopidogrel 75 mg Tablet PO (05:47)
[2024-09-12] MEDS: levothyroxine 100 mcg Tablet PO (05:47)
[2024-09-12] MEDS: aspirin 81 mg EC Tablet PO (05:47)
[2024-09-12 05:56] LABS: Basophils # 0.1 10^3/uL (0.0-0.1); Basophils % 1.2 %; Eosinophils # 0.3 10^3/uL (0.0-0.8); Eosinophils % 4.6 %; Hematocrit 37.5 % (36-47); Lymphocytes # 1.4 10^3/uL (0.8-4.8); Lymphocytes % 24.3 %; Mean Corpuscular HGB Conc 30.1 g/dL (30-55); Mean Corpuscular Hemoglobin 27.8 pg (27-33); Mean Corpuscular Volume 92.1 fl (85-98); Mean Platelet Volume 10.4 fL (7.4-10.4); Monocytes # 0.6 10^3/uL (0.2-0.9); Monocytes % 10.5 %; Neutrophils # 3.47 10^3/uL (1.8-7.7); Neutrophils % 58.9 %; Nucleated Red Blood Cells % 0 %; Platelet Count 137 10^3/cmm (157-399); Red Blood Count 4.07 10^6/uL (3.85-5.65); Red Cell Distribution Width 15.8 % (12.1-15.1); White Blood Count 5.89 10^3/uL (3.29-11.43)
[2024-09-12 06:35] LABS: Glucose Point of Care 160 mg/dL (70-110)
[2024-09-12 06:36] LABS: Alanine Aminotransferase 15 U/L (0-33); Albumin Level 3.1 g/dL (3.5-5.2); Alkaline Phosphatase 95 U/L (35-105); Anion Gap 14.4 (5-19); Aspartate Amino Transferase 21 U/L (0-32); Blood Urea Nitrogen 19 mg/dL (8-23); Calcium 8.8 mg/dL (8.5-10.5); Carbon Dioxide 24 mmol/L (22-29); Chloride 105 mmol/L (98-107); Creatinine Clr Calc Pharmacy 66.1768; Globulin 4.4 g/dL (1.3-4.6); Glucose 145 mg/dL (65-115); Magnesium 2.4 mg/dL (1.7-2.3); Osmolality Calculated 293 mOsm/kg (285-295); Phosphorus 2.3 mg/dL (2.5-4.5); Potassium 4.4 mmol/L (3.5-5.1); Sodium 139 mmol/L (136-145); Total Bilirubin 0.4 mg/dL (0.15-1.2); Total Protein 7.5 g/dL (6.6-8.7)
[2024-09-12] MEDS: budesonide 0.5 mg/2 mL Neb INHALATION (08:17)
[2024-09-12] MEDS: insulin glargine 100 units/1 mL 75 UNIT SUBCUT (08:44)
[2024-09-12] MEDS: insulin lispro 100 unit/1 mL SUBCUT ×2 (08:45→12:24)
[2024-09-12] MEDS: docusate sodium 100 mg Capsule PO (08:45)
[2024-09-12] MEDS: BuSPIRONE 10 mg Tablet 15 MG PO (08:45)
--- NOTE | 2024-09-12 10:38 | PM.DCS ---
Discharge Providers Date of Admission: 09/10/24 12:03 Date of Discharge: September 12, 2024 Attending Provider at Admission: Lucas Monroe MD Attending Provider at Discharge: Lucas Monroe MD Primary Care Provider: Summer Strickland DO Diagnoses at Discharge Discharge Diagnosis (1) Sepsis: Status: Acute (2) Acute alteration in mental status: Status: Acute (3) Acute hypoxic respiratory failure: Status: Acute (4) COPD (chronic obstructive pulmonary disease): Status: Acute (5) CHF (congestive heart failure): Status: Acute (6) Hypertension: Status: Acute (7) Insulin dependent type 2 diabetes mellitus: Status: Acute (8) Generalized anxiety disorder: Status: Chronic Reason for Visit Reason for Visit: ams Hospital Course Hospital Course Michelle Keita is a 69 year old female with past medical history of hypertension, type 2 diabetes mellitus, hypothyroidism, obstructive sleep apnea, congestive heart failure with known EF of 15% in the past improved on the last echocardiogram, COPD not chronically on oxygen, history of MRSA joint infection post BKA presents to the ER today from assisted living because of altered mental status. As per the patient he has been having difficulty in breathing, has been more sleepy than usual specially in the morning for last 1 week. Today after having breakfast while sitting in her recliner she was feeling sleepy and she was moved to the bed. And next thing she remembers is being in the ER. In the ER she was found to be hypotensive, hypoxic requiring up to 4 L of oxygen supplementation, required 1 L of IV fluid bolus after which her blood pressures improved from 80 systolic to 110s systolic. Patient is awake and alert x 3 on examination. Saturating over 92% on 4 L. ABG done in the ER showed hypoxia down to 66% PaO2 on 4 L of oxygen supplementation with respiratory alkalosis. Drug screen was positive for opiates. She denies any nausea, vomiting, headache, dizziness, sick contacts. Denies any changes in her medications recently. Denies any chest pain. Patient was admitted to the hospital for evaluation and management of Drowsiness, altered mental status in setting of sepsis due to pneumonia along with mild COPD exacerbation. She was started on IV hydration, nebulization treatment, broad-spectrum IV antibiotics. On admission there was a concern for polypharmacy due to multiple antianxiety and pain medications at home. Her home medications were reconciled and adjusted. On admission there was a concern for mild septic shock for which she required vasopressors for a short while. Patient responded well to the treatment and has been back to her baseline mentation, oxygen requirement and blood pressures for more than 48 hours. She was seen by speech therapist and her diet was modified accordingly. She has been discharged in hemodynamically stable condition on oral Levaquin for 5 more days. Linezolid was not chosen given interaction with multiple psychotropic medications for the patient. Her dose of BuSpar has been decreased to 15 mg twice daily, pregabalin has been changed to 50 mg daily while other medications have been continued as before. Medication changes were discussed in detail with the patient and she verbalized understanding. Physical Exam Narrative: General: No acute distress, AO x3, morbidly obese, on nasal cannula HEENT: PERRLA, pupils bilaterally equal and reactive Chest: Normal vesicular breath sounds, diffuse rhonchi all over lung erazo, coarse crackles present right more than left, equal good air entry bilaterally CVS: S1-S2 regular, no murmurs, tachycardia, no gallops, no rubs Abdomen: Soft, nontender, no organomegaly, bowel sounds present Neuro: No focal deficits, no facial deformity, AO x3, power 5/5 in all limbs Urinary Catheter Management: Hdez: Cath Placed During This Visit: yes Reason for Continuing Indwelling Catheter: Other Urinary Catheter Date of Insertion: 09/10/24 Urinary Catheter Time of Insertion: 11:27 Discharge Data Studies Completed and Pending Completed Studies During Hospitalization Category Date Time Status CT angio chest PE protcl [id number] Stat Cat Scan 09/10/24 11:[address] head wo con* [id number] Stat Cat Scan 09/10/24 08:06 Completed XR chest 1V portable [id number] Stat Exams 09/10/24 06:53 Completed CV. echo complete* [id number] Routine Ultrasound 09/10/24 13:20 Completed Pending at discharge Category Date Time Status Blood Culture Stat Lab 09/10/24 07:02 Results Complete Blood Count w/Auto AM LABS Lab 09/13/24 04:00 Ordered Comprehensive Metabolic Panel AM LABS Lab 09/13/24 04:00 Ordered Magnesium AM LABS Lab 09/13/24 04:00 Ordered Phosphorus AM LABS Lab 09/13/24 04:00 Ordered Radiology Impressions Chest X-Ray 09/10/24 06:53 IMPRESSION: Stable chest with no definite acute abnormality. Head CT 09/10/24 08:06 IMPRESSION: 1. No acute intracranial hemorrhage or edema. 2. Stable, moderate volume loss and small vessel disease. 3. Mild ventriculomegaly, stable. Chest CTA 09/10/24 11:05 IMPRESSION: 1. No pulmonary embolism. 2. Status post aortic valve replacement. 3. Mild LEFT heart enlargement. 4. Mild hazy attenuation throughout both lungs. In part this is due to breathing motion artifact but also favor the there is a small amount of interstitial edema. 5. Debris within the midesophagus may be from reflux disease/incomplete clearing of the esophagus. 6. Hepatosplenomegaly. Also described on 07/20/2022. Microbiology 09/10/24 07:02 Blood Blood Culture - Preliminary NEGATIVE TO DATE 09/10/24 07:00 Blood Blood Culture - Preliminary NEGATIVE TO DATE 09/10/24 07:06 Urine Kidney Bacterial Antigens - Final Laboratory Results WBC 5.89 10^3/uL (3.29-11.43) 09/12/24 05:46 RBC 4.07 10^6/uL (3.85-5.65) 09/12/24 05:46 Hgb 11.30 g/dL (11.27-16.99) 09/12/24 05:46 Hct 37.5 % (36-47) 09/12/24 05:46 MCV 92.1 fl (85-98) 09/12/24 05:46 MCH 27.8 pg (27-33) 09/12/24 05:46 MCHC 30.1 g/dL (30-55) 09/12/24 05:46 RDW 15.8 % (12.1-15.1) H 09/12/24 05:46 Plt Count 137 10^3/cmm (157-399) L 09/12/24 05:46 MPV 10.4 fL (7.4-10.4) 09/12/24 05:46 Neut % (Auto) 58.9 % 09/12/24 05:46 Lymph % (Auto) 24.3 % 09/12/24 05:46 [place] % (Auto) 10.5 % 09/12/24 05:46 Eos % (Auto) 4.6 % 09/12/24 05:46 Baso % (Auto) 1.2 % 09/12/24 05:46 Neut # (Auto) 3.47 10^3/uL (1.8-7.7) 09/12/24 05:46 Lymph # (Auto) 1.4 10^3/uL (0.8-4.8) 09/12/24 05:46 [place] # (Auto) 0.6 10^3/uL (0.2-0.9) 09/12/24 05:46 Eos # (Auto) 0.3 10^3/uL (0.0-0.8) 09/12/24 05:46 Baso # (Auto) 0.1 10^3/uL (0.0-0.1) 09/12/24 05:46 Nucleated RBC % (auto) 0 % 09/12/24 05:46 Nucleated RBCs # 0.0 /100WBC 09/12/24 05:46 Specimen Type Arterial 09/10/24 07:16 Sample Site Brachial, right 09/10/24 07:16 ABG pH 7.47 (7.35-7.45) H 09/10/24 07:16 ABG pCO2 43.8 mmHg (35-45) 09/10/24 07:16 ABG pO2 66.0 mmHg (80.0-100.0) L 09/10/24 07:16 ABG PO2/FiO2 Ratio 183 09/10/24 07:16 ABG HCO3 31.9 mmol/L (22-26) H 09/10/24 07:16 ABG O2 Saturation 92.6 09/10/24 07:16 ABG Base Excess 7.4 mmol/L (-2.0-2.0) H 09/10/24 07:16 Luis M Test N/a 09/10/24 07:16 A-a O2 Gradient 17.1 mmHg (5-10) H 09/10/24 07:16 Hematocrit 39.4 % (37-47) 09/10/24 07:16 Hgb O2 Saturation 90.8 % (95-100) L 09/10/24 07:16 Carboxyhemoglobin 0.9 %THgb (0.4-20.1) 09/10/24 07:16 Methemoglobin 1.0 % (0.4-1.5) 09/10/24 07:16 Total Hemoglobin 12.8 g/dL (12-16) 09/10/24 07:16 Sodium 142.0 mmol/L (131-143) 09/10/24 07:16 Potassium 4.1 mmol/L (3.5-5.0) 09/10/24 07:16 Glucose 179.0 mg/dL (70-115) H 09/10/24 07:16 Ionized Calcium 1.2 mmol/L (1.1-1.4) 09/10/24 07:16 O2 Delivery Device Nc 09/10/24 07:16 O2 Liters/Min 4.0 % 09/10/24 07:16 FiO2 36.0 % 09/10/24 07:16 Customer Service Representative Teller ID Amh 09/10/24 07:16 Sodium 139 mmol/L (136-145) 09/12/24 05:46 Potassium 4.4 mmol/L (3.5-5.1) 09/12/24 05:46 Chloride 105 mmol/L (98-107) 09/12/24 05:46 Carbon Dioxide 24 mmol/L (22-29) 09/12/24 05:46 Anion Gap 14.4 (5-19) 09/12/24 05:46 BUN 19 mg/dL (8-23) 09/12/24 05:46 Creatinine 1.0 mg/dL (0.5-0.9) H 09/12/24 05:46 GFR Calculation Not Reportable 09/12/24 05:46 Glucose 145 mg/dL (65-115) H 09/12/24 05:46 POC Glucose 160 mg/dL (70-110) H 09/12/24 06:22 Estimat Average Glucose 194 09/10/24 14:53 Hemoglobin A1c 8.4 % (4.0-6.0) H 09/10/24 14:53 Calculated Osmolality 293 mOsm/kg (285-295) 09/12/24 05:46 Lactic Acid 1.8 mmol/L (0.5-2.2) 09/10/24 07:02 Calcium 8.8 mg/dL (8.5-10.5) 09/12/24 05:46 Phosphorus 2.3 mg/dL (2.5-4.5) L 09/12/24 05:46 Magnesium 2.4 mg/dL (1.7-2.3) H 09/12/24 05:46 Iron 18 ug/dL (37-145) L 09/10/24 07:02 TIBC 346 mcg/dl 09/10/24 07:02 % Saturation 5.2 % (20-50) L 09/10/24 07:02 Unsat Iron Binding 328 ug/dL (112-347) 09/10/24 07:02 Total Bilirubin 0.4 mg/dL (0.15-1.2) 09/12/24 05:46 AST 21 U/L (0-32) 09/12/24 05:46 ALT 15 U/L (0-33) 09/12/24 05:46 Alkaline Phosphatase 95 U/L (35-105) 09/12/24 05:46 Troponin T Baseline 28 ng/L (0-10) H 09/10/24 07:02 Troponin T 120 Minute 26.79 ng/L (0-10) H 09/10/24 08:55 Delta Troponin T -1.21 ABS# (0-10) L 09/10/24 08:55 Troponin T Hi Sens 6Hr 28.73 ng/L (0-10) H 09/10/24 12:49 Troponin T Hi Sens 6Hr Delta 0.73 ng/L (0-12) 09/10/24 12:49 C-Reactive Protein 84.8 mg/L (0.0-4.9) H 09/10/24 07:02 NT-Pro-B Natriuret Pep 719 pg/mL (0-125) H 09/10/24 07:02 Total Protein 7.5 g/dL (6.6-8.7) 09/12/24 05:46 Albumin 3.1 g/dL (3.5-5.2) L 09/12/24 05:46 Globulin 4.4 g/dL (1.3-4.6) 09/12/24 05:46 Triglycerides 151 mg/dL (0-150) H 09/11/24 06:36 Cholesterol 109 mg/dL (0-200) 09/11/24 06:36 LDL Cholesterol, Calc 50 mg/dL (50-129) 09/11/24 06:36 HDL Cholesterol 29 mg/dL (60-100) L 09/11/24 06:36 LDL/HDL Ratio 1.72 RATIO (0.00-3.22) 09/11/24 06:36 Cholesterol/HDL Ratio 3.76 mg/dL (0.0-4.40) 09/11/24 06:36 Vitamin B12 904 pg/mL (232-1245) 09/10/24 14:53 Folate > 20.0 ng/mL (4.8-37.3) 09/11/24 06:36 Procalcitonin 0.33 ng/mL (0-0.5) 09/11/24 06:36 TSH 0.33 uIU/mL (0.27-4.20) 09/10/24 07:02 Urine Color Yellow (Yellow) 09/10/24 07:06 Urine Appearance Clear (CLEAR) 09/10/24 07:06 Urine pH 5 (5-7) 09/10/24 07:[address] 1.005 (1.005-1.030) 09/10/24 07:06 Urine Protein Neg (Negative) 09/10/24 07:06 Urine Glucose (UA) 4+ (Normal) H 09/10/24 07:06 Urine Ketones Negative (Negative) 09/10/24 07:06 Urine Blood Neg (Negative) 09/10/24 07:06 Urine Nitrate Negative (Negative) 09/10/24 07:06 Urine Bilirubin Neg (Negative) 09/10/24 07:06 Urine Urobilinogen Neg mg/dL (Negative) 09/10/24 07:06 Ur Leukocyte Esterase Negative (Negative) 09/10/24 07:06 Amorphous Sediment Not Reportable 09/10/24 07:06 Urine Opiates Screen Positive ng/mL (Negative) H 09/10/24 07:06 Ur Barbiturates Screen Negative ng/mL (Negative) 09/10/24 07:06 Ur Phencyclidine Scrn Negative ng/mL (Negative) 09/10/24 07:06 Ur Amphetamines Screen Negative ng/mL (Negative) 09/10/24 07:06 U Benzodiazepines Scrn Negative ng/mL (Negative) 09/10/24 07:06 Urine Cocaine Screen Negative ng/mL (Negative) 09/10/24 07:06 U Marijuana (THC) Screen Negative ng/mL (Negative) 09/10/24 07:06 Adenovirus (PCR) Not detected (NOT DETECT) 09/10/24 15:20 C. pneumoniae DNA (PCR) Not detected (NOT DETECT) 09/10/24 15:20 Coronavirus 229E (PCR) Not detected (NOT DETECT) 09/10/24 15:20 Human Metapneumovir PCR Not detected (NOT DETECT) 09/10/24 15:20 Influenza A (H1) PCR Not detected (NOT DETECT) 09/10/24 15:20 Influenza A (PCR) Negative (Negative) 09/10/24 07:06 Influ A (H1/09) PCR Not detected (NOT DETECT) 09/10/24 15:20 Influenza A (H3) PCR Not detected (NOT DETECT) 09/10/24 15:20 Influenza Type A (PCR) Not detected (NOT DETECT) 09/10/24 15:20 Influenza Type B (PCR) Not detected (NOT DETECT) 09/10/24 15:20 M. pneumoniae (PCR) Not detected (NOT DETECT) 09/10/24 15:20 Parainfluenza 1 (PCR) Not detected (NOT DETECT) 09/10/24 15:20 Parainfluenza 2 (PCR) Not detected (NOT DETECT) 09/10/24 15:20 Parainfluenza 3 (PCR) Not detected (NOT DETECT) 09/10/24 15:20 Parainfluenza 4 (PCR) Not detected (NOT DETECT) 09/10/24 15:20 RSV (PCR) Negative (Negative) 09/10/24 07:06 RSV Type A (PCR) Not detected (NOT DETECT) 09/10/24 15:20 RSV Type B (PCR) Not detected (NOT DETECT) 09/10/24 15:20 Entero/Rhino (PCR) Not detected (NOT DETECT) 09/10/24 15:20 SARS-CoV-2 (PCR) Not detected (NOT DETECT) 09/10/24 15:20 Vitals Last Vital Signs Temp 98.6 F 09/12/24 08:00 Pulse 81 09/12/24 08:32 Resp 18 09/12/24 08:18 BP 162/63 09/12/24 08:00 Pulse Ox 93 09/12/24 08:18 O2 Del Method Room Air 09/12/24 08:18 O2 Flow Rate 2 09/11/24 08:30 FiO2 35 09/12/24 02:00 Discharge Plan Discharge Patient Disposition: Home Condition: Stable Prescriptions: New levofloxacin 750 mg tablet 750 mg PO Q24H 5 Days Qty: 5 0RF Continued aspirin [Adult Aspirin Regimen] 81 mg tablet,delayed release (DR/EC) 81 mg PO QAM levothyroxine 100 mcg tablet 100 mcg PO QAM Glyxambi 25-5 mg tablet 1 tab PO QAM simvastatin [Zocor] 40 mg tablet 40 mg PO QPM febuxostat [Uloric] 80 mg tablet 80 mg PO QAM pramipexole [Mirapex ER] 1.5 mg tablet extended release 24 hr 1.5 mg PO BEDTIME cetirizine [Zyrtec] 10 mg tablet 10 mg PO BID Fish Oil 100-160-1,000 mg capsule 1 cap PO BID tramadol 50 mg tablet 50 - 100 mg PO Q6H PRN (Reason: Pain) guaifenesin [Mucinex] 600 mg tablet extended release 12hr 600 mg PO BID Saccharomyces boulardii [Daily Probiotic (S. boulardii)] 250 mg capsule 250 mg PO QPM pantoprazole [Protonix] 40 mg tablet,delayed release (DR/EC) 40 mg PO QAM clopidogrel [Plavix] 75 mg tablet 75 mg PO QAM nystatin 100,000 unit/gram cream 1 applic topical DAILY azelastine 137 mcg (0.1 %) aerosol,spray 2 spray intranasal BID fluticasone propionate 50 mcg/actuation spray,suspension 1 spray INTRANASAL DAILY insulin lispro 100 unit/mL insulin pen See Rx Instructions .ROUTE .COMPLEX Rx Instructions: Inject 4 times daily as needed PER SLIDING SCALE: BS 141-180=2 units, 181-220=4 units, 221-260=6 units, 261-300=8 unitsm greater than 300=10 units, greater than 400 mavis . insulin glargine [Lantus Solostar U-100 Insulin] 100 unit/mL (3 mL) insulin pen 76 unit SUBCUT BID Trelegy Ellipta 100-62.5-25 mcg blister with device 1 ea INHALATION QAM Prolia 60 mg/mL syringe See Rx Instructions .ROUTE .COMPLEX Rx Instructions: Inject 60mg sub-q every 6 months on first Sunday in November and May. calcium carbonate-vitamin D3 600 mg-5 mcg (200 unit) Tablet 1 tab PO BID ascorbic acid (vitamin C) [Vitamin C] 500 mg Tablet 500 mg PO QAM Women's 50 Plus Daily Formula 400 mcg-500 mg calcium-20 mcg Tablet 1 tab PO DAILY acetaminophen 325 mg Tablet 650 mg PO Q6H PRN (Reason: pain /elevated temp) tizanidine 2 mg tablet 2 mg PO TID loperamide 2 mg Capsule 2 mg PO Q3H PRN (Reason: loose stools/diarrhea) Rx Instructions: administer after each loose stool until symptoms controlled; do not exceed 8 mg per 24 hrs oxybutynin chloride 10 mg tablet extended release 24hr 10 mg PO QAM hydrocodone-acetaminophen 5-325 mg tablet 1 tab PO Q8H PRN (Reason: Moderate Pain (Scale Score 5-6)) sennosides-docusate sodium [Senokot-S] 8.6-50 mg Tablet 1 tab PO QAM triamcinolone acetonide 0.1 % cream 1 applic TOPICAL BID trazodone 100 mg tablet 100 mg PO BEDTIME ferrous sulfate 325 mg (65 mg iron) Tablet 325 mg PO BID ondansetron 4 mg tablet,disintegrating 1 mg PO Q4H PRN (Reason: nausea/emesis) bisacodyl 5 mg Tablet 5 mg PO DAILY PRN (Reason: Constipation) diclofenac sodium 1 % gel 4 g TOPICAL QID cholecalciferol (vitamin D3) [Vitamin D3] 50 mcg (2,000 unit) Capsule 50 mcg PO BID icosapent ethyl [Vascepa] 1 gram Capsule 2 g PO BID opbvsiyki-dmbum-p.salicy-menth 2.5-2.5-30-10 % Cream 1 applic TOPICAL DAILY PRN (Reason: Pain) Mounjaro 15 mg/0.5 mL pen injector 15 mg SUBCUT Q7D Rx Instructions: Sunday duloxetine [Cymbalta] 60 mg capsule,delayed release(DR/EC) 60 mg PO QAM Changed torsemide 20 mg tablet 20 mg PO DAILY PRN (Reason: swelling) Qty: 10 0RF buspirone 30 mg tablet 15 mg PO BID Qty: 5 0RF pregabalin 50 mg capsule 50 mg PO DAILY Qty: 10 0RF Discontinued celecoxib [Celebrex] 100 mg capsule 100 mg PO DAILY insulin lispro 100 unit/mL Insulin Pen 12 unit SUBCUT QID Discharge Orders: Discharge Order (Routine); Ordered 09/12/24 Ordered By: Lucas Monroe Referrals: Ruby Chow MD [Referring] - 7-10 days Discharge Diet: Advance as tolerated Discharge Activity: Resume usual activity and Increase activity as tolerated Patient Instructions: Levofloxacin (By mouth), Linezolid (By mouth), Opioid Safety Activity Restrictions/Additional Instructions: Dysphagia level 7 diet with mildly thickened fluid Dose of BuSpar has been changed to 15 mg twice daily. Dose of pregabalin has been decreased to 50 mg once daily. Concern for polypharmacy leading to drowsiness. Take Levaquin just antibiotic for next 3 days. Discharge Attestations Time Spent in Discharge Care*: greater than 30 min Specific Discharge Activities: educating patient, educating and/or supporting family/caregiver, discussing with pcp/other providers, discussing with continuous pillowcase cutter/social workers/dc planners, documenting/other paperwork and evaluating patient/reviewing data Status at Discharge: Cognitive status at discharge: cognitively intact, Behavioral status at discharge: cooperative, Functional status at discharge: wheelchair bound, Overall status at discharge: patient is back to baseline Quality Metrics Clinical Quality Measures [ No reported AMI, CVA or VTE this stay] Coding Level of Care Code 64446 Total time (in minutes) for Discharge: 60 Diagnoses Sepsis A41.9 Acute alteration in mental status R41.82 Acute hypoxic respiratory failure J96.01 COPD (chronic obstructive pulmonary disease) J44.9 CHF (congestive heart failure) I50.9 Hypertension I10 Insulin dependent type 2 diabetes mellitus E11.9; Z79.4 Generalized anxiety disorder F41.1
[2024-09-12 11:36] LABS: Glucose Point of Care 213 mg/dL (70-110)
--- NOTE | 2024-09-12 14:01 | PC.NURSE ---
Report called to ENRIKE Hernández. Updated on pt and procedures while in hospital
== END 2024-09-12 16:30 | disposition home or self-care (01) | DRG 871 ==
LOC: ER 11:55 → ER IP 12:04 → ICU 09-11 06:15 → MEDSURG 09-11 14:53
PROVIDERS: Admitting Provider Student in an Organized Health Care Education/Training Program; Emergency Provider Emergency Medicine; PCP Family Medicine; Visit Provider Student in an Organized Health Care Education/Training Program
DX: A41.9 Sepsis, unspecified organism (principal); G93.41 Metabolic encephalopathy; J18.9 Pneumonia, unspecified organism; J96.01 Acute respiratory failure with hypoxia; R65.21 Severe sepsis with septic shock; J44.0 Chronic obstructive pulmonary disease with (acute) lower respiratory infection; J44.1 Chronic obstructive pulmonary disease with (acute) exacerbation; E87.3 Alkalosis; I13.0 Hypertensive heart and chronic kidney disease with heart failure and stage 1 through stage 4 chronic kidney disease, or unspecified chronic kidney disease; F33.1 Major depressive disorder, recurrent, moderate; I50.9 Heart failure, unspecified; E03.9 Hypothyroidism, unspecified; G47.33 Obstructive sleep apnea (adult) (pediatric); F41.1 Generalized anxiety disorder; E11.22 Type 2 diabetes mellitus with diabetic chronic kidney disease; N18.9 Chronic kidney disease, unspecified; Z79.4 Long term (current) use of insulin; Z11.52 Encounter for screening for COVID-19; Z79.82 Long term (current) use of aspirin; Z79.890 Hormone replacement therapy; Z79.899 Other long term (current) drug therapy; Z79.1 Long term (current) use of non-steroidal anti-inflammatories (NSAID); Z79.02 Long term (current) use of antithrombotics/antiplatelets; Z88.8 Allergy status to other drugs, medicaments and biological substances; Z88.2 Allergy status to sulfonamides; Z91.048 Other nonmedicinal substance allergy status; Z87.891 Personal history of nicotine dependence; Z86.14 Personal history of Methicillin resistant Staphylococcus aureus infection; Z79.84 Long term (current) use of oral hypoglycemic drugs; Z79.51 Long term (current) use of inhaled steroids; Z79.85 Long-term (current) use of injectable non-insulin antidiabetic drugs
CPT/HCPCS: 36415; 36416; 36600; 51702; 70450; 71045; 71275; 80051; 80053; 80061; 80306; 81003; 82330; 82607; 82746; 82805; 82962; 83036; 83540; 83550; 83605; 83735; 83880; 84100; 84145; 84443; 84484; 85025; 86140; 86403; 87040; 87486; 87581; 87633; 87637; 92507; 92523; 92526; 92610; 93005; 93306; 94640; 94660; 94664; 96365; 96367; 96372; 96375; 97110; 97161; 97530; 99291; J0131; J1644; J1815; J1885; J2270; J2470; J2543; J3370; J7030; J7050; J7626; J9999

== ENCOUNTER 2024-11-03 23:39 | Inpatient (IN) | payer MEDICARE, MEDICAID, SELFPAY ==
[2024-03-05 15:54] VITALS: BP 118/59; BMI 46.9
[2024-11-03 23:40] VITALS: PULSE 135; RESP 26; TEMP 37.3; O2SAT 90; BMI 46.0
--- NOTE | 2024-11-03 23:45 | ECG_ITS ---
[email or web address] Test Date: 2024-11-03 Pat Name: Michelle Keita Department: Room: Gender: Female V Belt Inspector: : [id number] Requested By: Poly Espinosa Order Number: [id number] Reading MD: Measurements Intervals [place] Rate: 131 P: 258 NC: 168 QRS: -21 QRSD: 88 T: 71 QT: 325 QTc: 480 Interpretive Statements ECTOPIC ATRIAL TACHYCARDIA LOW QRS VOLTAGE IN PRECORDIAL LEADS [QRS DEFLECTION < 1.0 mV IN CHEST LEADS] POSSIBLE ANTERIOR MYOCARDIAL INFARCTION , OF INDETERMINATE AGE [30 ms Q WAVE IN V3/V4, OR R < 0.2 mV IN V4] No previous ECG available for comparison [email or web address]
--- NOTE | 2024-11-03 23:49 | CTR_ITS ---
PROCEDURE INFORMATION: Exam: CT Head Without Contrast Exam date and time: 11/04/2024 1:19 AM Age: 69 years old Clinical indication: Altered mental status/memory loss; Additional info: Encephalopathy, altered mental status TECHNIQUE: Imaging protocol: Computed tomography of the head without contrast. Radiation optimization: All CT scans at this facility use at least one of these dose optimization techniques: automated exposure control; mA and/or kV adjustment per patient size (includes targeted exams where dose is matched to clinical indication); or iterative reconstruction. COMPARISON: CT head wo con* [id number] 09/10/2024 9:17 AM FINDINGS: Brain: Normal. No hemorrhage. Unremarkable white matter. No mass effect. Cerebral ventricles: No ventriculomegaly. Paranasal sinuses: Mild mucosal thickening of the left maxillary sinus. Mastoid air cells: Visualized mastoid air cells are well aerated. Bones: Unremarkable. No acute fracture. Soft tissues: Unremarkable. CT/CT head wo con* [id number] IMPRESSION: No acute intracranial abnormality.
--- NOTE | 2024-11-03 23:49 | XRR_ITS ---
PROCEDURE INFORMATION: Exam: XR Chest Exam date and time: 11/03/2024 11:51 PM Age: 69 years old Clinical indication: Other: Weakness TECHNIQUE: Imaging protocol: Radiologic exam of the chest. Views: 1 view. COMPARISON: CT angio chest PE protcl [id number] 09/10/2024 11:49 AM FINDINGS: Lungs: Unremarkable. No consolidation. Pleural spaces: Unremarkable. No pleural effusion. No pneumothorax. Heart/Mediastinum: Calcified mediastinal lymph nodes. Vasculature: Aortic stent. Bones/joints: ACDF. XR/XR chest 1V portable [id number] IMPRESSION: No acute findings.
--- NOTE | 2024-11-03 23:50 | W.ED.WEAKNES ---
HPI - Weakness General: Chief complaint: Weakness Stated complaint: WEAKNESS Time Seen by Provider: 11/03/24 23:40 History of Present Illness: 69-year-old female with history of morbid obesity, CHF and flash pulmonary edema, aortic stenosis, diabetes, COPD, hyperlipidemia and hypothyroidism who presents to the emergency room by ambulance from assisted living with weakness and tachycardia. She says she was getting ready to go to bed and she suddenly felt very hot. She then felt weak. No focal motor deficits. No altered mental status. Patient was 91% on room air and her blood glucose was 261 at home. She says she just feels off. No chest pain. No abdominal pain. No vomiting. She is tachycardic in the 130s on presentation. Patient does report a frequent productive cough. Review of Systems Narrative: Constitutional symptoms: Negative except as documented in HPI. Skin symptoms: Negative except as documented in HPI. Eye symptoms: Negative except as documented in HPI. ENMT symptoms: Negative except as documented in HPI. Respiratory symptoms: Negative except as documented in HPI. Cardiovascular symptoms: Negative except as documented in HPI. Gastrointestinal symptoms: Negative except as documented in HPI. Genitourinary symptoms: Negative except as documented in HPI. Musculoskeletal symptoms: Negative except as documented in HPI. Neurologic symptoms: Negative except as documented in HPI. Psychiatric symptoms: Negative except as documented in HPI. Endocrine symptoms: Negative except as documented in HPI. [facility] ED PFSH: Medical History (Updated 11/04/24 @ 03:29 by Poly Schilling MD) Abscess Infected prosthetic knee joint Alkalosis, metabolic Sinusitis Flash pulmonary edema Aortic stenosis UTI (urinary tract infection) Anasarca CHF (congestive heart failure) Encephalopathy acute Altered mental status Diabetes Sleep apnea COPD (chronic obstructive pulmonary disease) Hyperlipidemia CHF (congestive heart failure) Hypertension Hypothyroid Acute cystitis Weakness Generalized anxiety disorder Moderate episode of recurrent major depressive disorder Psychiatric care Surgical History (Updated 09/10/24 @ 18:48 by Lucas Monroe MD) History of tubal ligation History of colon surgery History of cholecystectomy History of neck surgery H/O total knee replacement lt x2 rt x 1 H/O carpal tunnel repair Family History Other Cancer Diabetes Hypertension Hypothyroidism Social History Smoking and tobacco/nicotine status: former use of tobacco/nicotine Quit status (tobacco/nicotine): has quit using Year quit tobacco: 2009 Alcohol intake: never Substance/Drug Use: never Adopted: No Caregiver/support person: Yes (sets up medication and wound bandage change 2x week) Lives independently: Yes Household members: children Housing: Apartment Marital status: Number of children: 3 Number of grandchildren: 6 Highest education level completed: Some College, No Degree service: No Current occupational status: disabled Current occupation: disability since 1992 Current occupational exposures/hazards: No Pets and animals: No Leisure activites: other Leisure activities details: watch TV,crafts Sexually active: No Do you think of yourself as: Straight/Heterosexual Current gender identity: Female Nida/Islam: Judaism Special nida needs: No Agree to transfusion: Yes Female Reproductive History: Para: 3 Physical Exam Narrative: EXAM NARRATIVE: General: Alert, no acute distress. Skin: Warm, dry. Head: Normocephalic, atraumatic. Neck: Supple, trachea midline. Eye: Extraocular movements are intact. Ears, nose, mouth and throat: mucosa moist. Cardiovascular: Tachycardic, normal peripheral perfusion. Respiratory: Lungs are clear to auscultation, respirations are non-labored, breath sounds are equal, Symmetrical chest wall expansion. Gastrointestinal: Soft, Nontender, Non distended Musculoskeletal: Normal ROM, no deformity. Neurological: Alert and oriented, No focal neurological deficit observed. Psychiatric: Cooperative, appropriate mood & affect. Course Vital Signs: Vital signs: Vital Signs Temperature 99.2 F 11/03/24 23:40 Pulse Rate 110 H 11/04/24 02:00 Respiratory Rate 20 H 11/04/24 02:00 Blood Pressure 110/58 11/04/24 02:00 Pulse Oximetry 96 11/04/24 02:00 Oxygen Delivery Me thod Nasal Cannula 11/04/24 02:00 Oxygen Flow Rate 3 11/04/24 02:00 MDM - Weakness Medical Decision Making Medical decision making: Differential diagnosis for patient presenting with generalized weakness including but not limited to and based on the above HPI, review of systems and physical exam: Sepsis. Dehydration. Renal failure. Electrolyte abnormalities. Anemia. Congestive heart failure. Hypotension. Coronary syndrome. Hepatitis. Cirrhosis. Infections such as pneumonia, urinary tract infection, [place] illness, Cellulitis, Viral infections including influenza and Covid-19. Workup: labwork and lab/exam driven imaging ordered to evaluate, rule in and rule out above pathologies. EKG: Time 2347. Rate 131. Sinus tachycardia, nonspecific ST T abnormalities, no ectopy, normal OR & QRS intervals, This was reviewed and interpreted by myself the ER physician at 2350 Chest x-ray: No acute process. No infiltrate. No pneumothorax. This was reviewed and interpreted by myself the emergency room physician. I also reviewed the radiology report. Lab Review: Laboratory results were reviewed and interpreted by myself the emergency room physician. Leukocytosis with a white count of 15,000. BUN/creatinine mildly elevated at 25 and 1. Urinalysis negative for infection. Flu COVID and RSV are negative. CRP is mildly elevated at 16,000. I reviewed the patient's medical record. CT of the chest abdomen pelvis without contrast: Left lower lobe pneumonia. There are some thickening at the splenic flexure that radiology felt concerning for colitis. Patient has no pain in that area. Recommend follow-up with gastroenterology at some point. This was reviewed and interpreted by myself the emergency room physician. I also reviewed the radiology report. Reexamination: Patient doing quite a bit better. She says she feels better. Heart rate has decreased into the 1 teens. Blood pressure is improved. No increased work of breathing. No altered mental status. No focal motor deficits. Consultation: I spoke with Dr. Guardado who is on-call for the hospital service who agrees to admission. Assessment and plan: Pneumonia Possible sepsis Dehydration -2 L normal saline bolus. Patient has history of CHF and flash pulmonary edema. Vitals have improved from holding off any further fluids. -Broad-spectrum antibiotics were administered. Meropenem and Zyvox -Sepsis quality measures. -Lactic acid with a reflex was ordered. -Blood cultures were ordered. - Discharged home - Discussed plan with patient. Answered any questions. - Evaluation and treatment of this problem were appropriate in the emergency setting. Critical care -I spent a total of >35 minutes of critical care time managing the patient, independent of any other practitioner. -The time involved in the performance of separately reportable procedures was not counted towards critical care time. Lab Data 11/03/24 23:55 11/04/24 00:39 Radiology Impressions Chest X-Ray 11/03/24 23:49 IMPRESSION: No acute findings. Head CT 11/03/24 23:49 IMPRESSION: No acute intracranial abnormality. Chest/Abdomen/Pelvis CT 11/04/24 01:48 IMPRESSION: Patchy airspace disease in the left lower lobe posteromedially. Suspected pneumonia. IMPRESSION: Mild segmental circumferential wall thickening in the splenic flexure of the colon with adjacent fat stranding. This likely represents a focal colitis. Though nonspecific, this is a common location for ischemic colitis. ADDENDUM: 11/04/24 0304 THIS REPORT CONTAINS FINDINGS THAT MAY BE CRITICAL TO PATIENT CARE. The findings were verbally communicated via telephone conference at 3:02 AM CDT on 11/04/2024 with POLY SCHILLING. The findings were acknowledged and understood. Laboratory Results WBC 15.38 10^3/uL (3.29-11.43) H 11/03/24 23:55 RBC 4.56 10^6/uL (3.85-5.65) 11/03/24 23:55 Hgb 12.40 g/dL (11.27-16.99) 11/03/24 23:55 Hct 40.7 % (36-47) 11/03/24 23:55 MCV 89.3 fl (85-98) 11/03/24 23:55 MCH 27.2 pg (27-33) 11/03/24 23:55 MCHC 30.5 g/dL (30-55) 11/03/24 23:55 RDW 15.1 % (12.1-15.1) 11/03/24 23:55 Plt Count 160 10^3/cmm (157-399) 11/03/24 23:55 MPV 10.2 fL (7.4-10.4) 11/03/24 23:55 Neut % (Auto) 86.3 % 11/03/24 23:55 Lymph % (Auto) 5.5 % 11/03/24 23:55 [place] % (Auto) 6.2 % 11/03/24 23:55 Eos % (Auto) 0.7 % 11/03/24 23:55 Baso % (Auto) 0.6 % 11/03/24 23:55 Neut # (Auto) 13.27 10^3/uL (1.8-7.7) H 11/03/24 23:55 Lymph # (Auto) 0.9 10^3/uL (0.8-4.8) 11/03/24 23:55 [place] # (Auto) 1.0 10^3/uL (0.2-0.9) H 11/03/24 23:55 Eos # (Auto) 0.1 10^3/uL (0.0-0.8) 11/03/24 23:55 Baso # (Auto) 0.1 10^3/uL (0.0-0.1) 11/03/24 23:55 Nucleated RBC % (auto) 0 % 11/03/24 23:55 Nucleated RBCs # 0.0 /100WBC 11/03/24 23:55 Sodium 139 mmol/L (136-145) 11/04/24 00:39 Potassium 4.5 mmol/L (3.5-5.1) 11/04/24 00:39 Chloride 104 mmol/L (98-107) 11/04/24 00:39 Carbon Dioxide 23 mmol/L (22-29) 11/04/24 00:39 Anion Gap 16.5 (5-19) 11/04/24 00:39 BUN 25 mg/dL (8-23) H 11/04/24 00:39 Creatinine 1.0 mg/dL (0.5-0.9) H 11/04/24 00:39 GFR Calculation Not Reportable 11/04/24 00:39 Glucose 218 mg/dL (65-115) H 11/04/24 00:39 Calculated Osmolality 299 mOsm/kg (285-295) H 11/04/24 00:39 Lactic Acid 2.1 mmol/L (0.5-2.2) 11/04/24 00:39 Lactic Acid (Sepsis) 1.6 mmol/L (0.5-2.2) 11/04/24 02:43 Calcium 8.9 mg/dL (8.5-10.5) 11/04/24 00:39 Total Bilirubin 0.4 mg/dL (0.15-1.2) 11/04/24 00:39 AST 28 U/L (0-32) 11/04/24 00:39 ALT 19 U/L (0-33) 11/04/24 00:39 Alkaline Phosphatase 118 U/L (35-105) H 11/04/24 00:39 Troponin T Baseline 23 ng/L (0-10) H 11/04/24 00:39 Troponin T 120 Minute 21.86 ng/L (0-10) H 11/04/24 02:43 Delta Troponin T -1.14 ABS# (0-10) L 11/04/24 02:43 C-Reactive Protein 16.3 mg/L (0.0-4.9) H 11/04/24 00:39 NT-Pro-B Natriuret Pep 282 pg/mL (0-125) H 11/04/24 00:39 Total Protein 6.8 g/dL (6.6-8.7) 11/04/24 00:39 Albumin 3.6 g/dL (3.5-5.2) 11/04/24 00:39 Globulin 3.2 g/dL (1.3-4.6) 11/04/24 00:39 Urine Color Yellow (Yellow) 11/04/24 00:50 Urine Appearance Clear (CLEAR) 11/04/24 00:50 Urine pH 5.5 (5-7) 11/04/24 00:50 Ur Specific [place] 1.037 (1.005-1.030) H 11/04/24 00:50 Urine Protein Negative (Negative) 11/04/24 00:50 Urine Glucose (UA) 3+ (Normal) H 11/04/24 00:50 Urine Ketones Negative (Negative) 11/04/24 00:50 Urine Blood 2+ (Negative) A 11/04/24 00:50 Urine Nitrate Negative (Negative) 11/04/24 00:50 Urine Bilirubin Negative (Negative) 11/04/24 00:50 Urine Urobilinogen 0.2 mg/dL (Negative) 11/04/24 00:50 Ur Leukocyte Esterase Negative (Negative) 11/04/24 00:50 Urine RBC 11-20 /hpf (0-2) H 11/04/24 00:50 Urine WBC 0-5 /hpf (0-5) 11/04/24 00:50 Ur Squamous Epith Cells 6-10 /hpf (0-5) 11/04/24 00:50 Amorphous Sediment Not Reportable 11/04/24 00:50 Urine Bacteria None seen /hpf (NONE) 11/04/24 00:50 Hyaline Casts 1.65 /lpf 11/04/24 00:50 Influenza A (PCR) Negative (Negative) 11/04/24 00:10 Influenza Type B (PCR) Negative (Negative) 11/04/24 00:10 RSV (PCR) Negative (Negative) 11/04/24 00:10 SARS-CoV-2 (PCR) Negative (Negative) 11/04/24 00:10 All radiology interpretation(s) finalized by discharge Discharge Plan Discharge Patient Disposition: Admitted As Inpatient Clinical Impression: Pneumonia, Sepsis Condition: Stable Coding Level of Care Code ED Knockout Machine Operator for Chg Fwd Related Data Home Medications ?Medication ?Instructions ?Recorded ?Confirmed aspirin 81 mg tablet,delayed 81 mg PO QAM 10/08/19 09/10/24 release (Adult Aspirin Regimen) empagliflozin 25 mg-linagliptin 5 1 tab PO QAM 10/08/19 09/10/24 mg tablet (Glyxambi) febuxostat 80 mg tablet (Uloric) 80 mg PO QAM 10/08/19 09/10/24 levothyroxine 100 mcg tablet 100 mcg PO QAM 10/08/19 09/10/24 pramipexole 1.5 mg tablet,extended 1.5 mg PO BEDTIME 10/08/19 09/10/24 release 24 hr (Mirapex ER) simvastatin 40 mg tablet (Zocor) 40 mg PO QPM 10/08/19 09/10/24 ascorbic acid (vitamin C) 500 mg 500 mg PO QAM 07/20/22 09/10/24 tablet (Vitamin C) azelastine 137 mcg (0.1 %) nasal 2 spray intranasal BID 07/20/22 09/10/24 spray calcium 600 mg (as 1 tab PO BID 07/20/22 09/10/24 carbonate)-vitamin D3 5 mcg (200 unit) tablet denosumab 60 mg/mL subcutaneous See Rx Instructions .Route .COMPLEX 07/20/22 09/10/24 syringe (Prolia) fluticasone fur. 100 mcg-umeclid 1 ea inhalation QAM 07/20/22 09/10/24 62.5 mcg-vilant 25 mcg inhalat.powder (Trelegy Ellipta) fluticasone propionate 50 1 spray intranasal DAILY 07/20/22 09/10/24 mcg/actuation nasal spray,suspension insulin glargine 100 unit/mL (3 76 unit SUBCUT BID 07/20/22 09/10/24 mL) subcutaneous pen (Lantus Solostar U-100 Insulin) insulin lispro 100 unit/mL See Rx Instructions .Route .COMPLEX 07/20/22 09/10/24 subcutaneous pen aldwwqfg-csc-kzzqc ac 400 1 tab PO DAILY 07/20/22 09/10/24 mcg-calcium carb 500 mg-vit K1 20 mcg tablet (Women's 50 Plus Daily Formula) Saccharomyces boulardii 250 mg 250 mg PO QPM 09/27/22 09/10/24 capsule (Daily Probiotic (S. boulardii)) cetirizine 10 mg tablet (Zyrtec) 10 mg PO BID 09/27/22 09/10/24 guaifenesin 600 mg tablet, 600 mg PO BID 09/27/22 09/10/24 extended release 12 hr (Mucinex) omega 4-lek-cop-fish oil 100 1 cap PO BID 09/27/22 09/10/24 mg-160 mg-1,000 mg capsule (Fish Oil) tramadol 50 mg tablet 50 - 100 mg PO Q6H PRN Pain 09/27/22 09/10/24 clopidogrel 75 mg tablet (Plavix) 75 mg PO QAM 12/27/23 09/10/24 nystatin 100,000 unit/gram topical 1 applic topical DAILY 12/27/23 09/10/24 cream pantoprazole 40 mg tablet,delayed 40 mg PO QAM 12/27/23 09/10/24 release (Protonix) acetaminophen 325 mg tablet 650 mg PO Q6H PRN pain /elevated 09/10/24 09/10/24 temp bisacodyl 5 mg tablet 5 mg PO DAILY PRN Constipation 09/10/24 09/10/24 cholecalciferol (vitamin D3) 50 50 mcg PO BID 09/10/24 09/10/24 mcg (2,000 unit) capsule (Vitamin D3) diclofenac sodium 1 % topical gel 4 g topical QID 09/10/24 09/10/24 duloxetine 60 mg capsule,delayed 60 mg PO QAM 09/10/24 09/10/24 release (Cymbalta) ferrous sulfate 325 mg (65 mg 325 mg PO BID 09/10/24 09/10/24 iron) tablet hydrocodone 5 mg-acetaminophen 325 1 tab PO Q8H PRN Moderate Pain 09/10/24 09/10/24 mg tablet (Scale Score 5-6) icosapent ethyl 1 gram capsule 2 g PO BID 09/10/24 09/10/24 (Vascepa) lidocaine 2.5 %-prilocaine 2.5% 1 applic topical DAILY PRN Pain 09/10/24 09/10/24 and m.salicy 30 %-menth 10 % top cream loperamide 2 mg capsule 2 mg PO Q3H PRN loose 09/10/24 09/10/24 stools/diarrhea ondansetron 4 mg disintegrating 1 mg PO Q4H PRN nausea/emesis 09/10/24 09/10/24 tablet oxybutynin chloride 10 mg 10 mg PO QAM 09/10/24 09/10/24 tablet,extended release 24 hr sennosides 8.6 mg-docusate sodium 1 tab PO QAM 09/10/24 09/10/24 50 mg tablet (Senokot-S) tirzepatide 15 mg/0.5 mL 15 mg SUBCUT Q7D 09/10/24 09/10/24 subcutaneous pen injector (Xin) tizanidine 2 mg tablet 2 mg PO TID 09/10/24 09/10/24 trazodone 100 mg tablet 100 mg PO BEDTIME 09/10/24 09/10/24 triamcinolone acetonide 0.1 % 1 applic topical BID 09/10/24 09/10/24 topical cream Previous Rx's ?Medication ?Instructions ?Recorded buspirone 30 mg tablet 15 mg (1/2 x 30 mg) PO BID anxiety 09/12/24 #5 tabs pregabalin 50 mg capsule 50 mg PO DAILY #10 caps 09/12/24 torsemide 20 mg tablet 20 mg PO DAILY PRN swelling #10 09/12/24 tabs Allergies Allergy/AdvReac Type Severity Reaction Status Date / Time lisinopril Allergy Severe kidney Verified 09/10/24 14:53 failure Sulfa (Sulfonamide Allergy Intermediate ALGY-Rash Verified 09/10/24 14:53 Antibiotics) grass pollen Allergy Mild It's just Verified 09/10/24 14:53 a mild allergy. PHILIP Inhibitors Allergy Unknown Unknown Verified 09/10/24 14:53 allopurinol Allergy Unknown Unknown Verified 09/10/24 14:53 Beta-Blockers Allergy Unknown Unknown Verified 09/10/24 14:53 (Beta-Adrenergic Bloc (Beta-Blockers (Beta-Adrenergic Blocking Agts)) nickel Allergy Unknown Unknown Verified 09/10/24 14:53 polyethylene glycol 3350 AdvReac Mild ADR-Nausea Verified 09/10/24 14:53 (From Miralax) angiotensin receptor Allergy Unknown Unknown Uncoded 09/10/24 14:53 antagonists
[2024-11-04] VITALS (20 sets, daily range): BP systolic 90–144; BP diastolic 46–82; PULSE 82–124; RESP 16–25; TEMP 36.4–37.2; O2SAT 90–98; BMI 46.7; BMI 46.5
[2024-11-04 00:16] LABS: Basophils # 0.1 10^3/uL (0.0-0.1); Basophils % 0.6 %; Eosinophils # 0.1 10^3/uL (0.0-0.8); Eosinophils % 0.7 %; Hematocrit 40.7 % (36-47); Lymphocytes # 0.9 10^3/uL (0.8-4.8); Lymphocytes % 5.5 %; Mean Corpuscular HGB Conc 30.5 g/dL (30-55); Mean Corpuscular Hemoglobin 27.2 pg (27-33); Mean Corpuscular Volume 89.3 fl (85-98); Mean Platelet Volume 10.2 fL (7.4-10.4); Monocytes % 6.2 %; Neutrophils # 13.27 10^3/uL (1.8-7.7); Neutrophils % 86.3 %; Nucleated Red Blood Cells % 0 %; Platelet Count 160 10^3/cmm (157-399); Red Blood Count 4.56 10^6/uL (3.85-5.65); Red Cell Distribution Width 15.1 % (12.1-15.1); White Blood Count 15.38 10^3/uL (3.29-11.43)
[2024-11-04] MEDS: sodium chloride 0.9% 1,000 ML 999 ML IV ×2 (00:26)
--- NOTE | 2024-11-04 00:52 | PC.NURSE ---
I/o performed per myself and Evi Villatoro and specimen sent to lab. pt with pillow placed under coccyx .
[2024-11-04 01:00] LABS: Bilirubin Urine Negative (Negative); Blood Urine 2+ (Negative); Glucose Urine UA 3+ (Normal); Ketones Urine Negative (Negative); Leukocyte Esterase Urine Negative (Negative); Nitrate Urine Negative (Negative); Protein Urine Negative (Negative); Urine Appearance Clear (CLEAR); Urine Color Yellow (Yellow); Urobilinogen Urine 0.2 mg/dL (Negative); pH Urine 5.5 (5-7)
[2024-11-04 01:02] LABS: Bacteria Urine None Seen /hpf; Hyaline Casts Urine 1.65 /lpf; WBC Urine 0-5 /hpf (0-5)
[2024-11-04 01:16] LABS: Lactic Sepsis W/Reflex 2.1 mmol/L (0.5-2.2)
[2024-11-04 01:17] LABS: Influenza A NEGATIVE (Negative); Influenza B NEGATIVE (Negative); Respiratory Syncytial Virus Ce NEGATIVE (Negative); SARS-CoV-2 PCR NEGATIVE (Negative)
[2024-11-04 01:20] LABS: Troponin(5th) Baseline 23 ng/L (0-10)
[2024-11-04 01:23] LABS: Specific Gravity, Urine 1.037 (1.005-1.030); UA Slide Review UA Slide Review Perf
[2024-11-04 01:25] LABS: Add Urine Culture? Yes
[2024-11-04 01:28] LABS: Alanine Aminotransferase 19 U/L (0-33); Albumin Level 3.6 g/dL (3.5-5.2); Alkaline Phosphatase 118 U/L (35-105); Anion Gap 16.5 (5-19); Aspartate Amino Transferase 28 U/L (0-32); Blood Urea Nitrogen 25 mg/dL (8-23); C Reactive Protein 16.3 mg/L (0.0-4.9); Calcium 8.9 mg/dL (8.5-10.5); Carbon Dioxide 23 mmol/L (22-29); Chloride 104 mmol/L (98-107); Creatinine Clr Calc Pharmacy 64.0373; Globulin 3.2 g/dL (1.3-4.6); Glucose 218 mg/dL (65-115); NT Pro B Type Natriuretic Pept 282 pg/mL (0-125); Osmolality Calculated 299 mOsm/kg (285-295); Potassium 4.5 mmol/L (3.5-5.1); Sodium 139 mmol/L (136-145); Total Bilirubin 0.4 mg/dL (0.15-1.2); Total Protein 6.8 g/dL (6.6-8.7)
[2024-11-04] MEDS: cefepime 2,000 mg SDV 2000 MG IVP (01:40)
[2024-11-04] MEDS: linezolid premix 600 MG/300 ML PREMIX 300 MG IV (01:41)
--- NOTE | 2024-11-04 01:48 | CTR_ITS ---
PROCEDURE INFORMATION: Exam: CT Chest Without Contrast; Diagnostic Exam date and time: 11/04/2024 2:08 AM Age: 69 years old Clinical indication: Other: Sepsis TECHNIQUE: Imaging protocol: Diagnostic computed tomography of the chest without contrast. Radiation optimization: All CT scans at this facility use at least one of these dose optimization techniques: automated exposure control; mA and/or kV adjustment per patient size (includes targeted exams where dose is matched to clinical indication); or iterative reconstruction. COMPARISON: CT angio chest PE [facility] [id number] 09/10/2024 11:49 AM RADIATION DOSE METRICS: Total DLP (mGy-cm): 694.7 FINDINGS: Lungs: Patchy airspace disease in the left lower lobe posteromedially. Pleural spaces: Unremarkable. No pneumothorax. No pleural effusion. Heart: Patient is status post TAVR procedure. Normal heart size. Coronary arteries: Coronary artery calcifications are present. Lymph nodes: Multiple calcified mediastinal and bilateral hilar lymph nodes. Vasculature: Aortic atherosclerotic disease is seen without evidence of aneurysm. Bones/joints: Midthoracic dextroscoliosis and extensive multilevel spondylosis. No acute or suspicious osseous abnormality. Soft tissues: Unremarkable. PROCEDURE INFORMATION: Exam: CT Abdomen And Pelvis Without Contrast Exam date and time: 11/04/2024 2:08 AM Age: 69 years old Clinical indication: Other: Sepsis TECHNIQUE: Imaging protocol: Computed tomography of the abdomen and pelvis without contrast. Radiation optimization: All CT scans at this facility use at least one of these dose optimization techniques: automated exposure control; mA and/or kV adjustment per patient size (includes targeted exams where dose is matched to clinical indication); or iterative reconstruction. COMPARISON: CT angio chest PE [facility] [id number] 09/10/2024 11:49 AM RADIATION DOSE METRICS: Total DLP (mGy-cm): 978.9 FINDINGS: Liver: Normal. No mass. Gallbladder and biliary ducts: Status post cholecystectomy. No evidence of significant biliary obstruction. Pancreas: Normal. No ductal dilation. Spleen: Normal. No splenomegaly. Adrenal glands: Normal. No mass. Kidneys and ureters: Normal. No hydronephrosis. Stomach and bowel: Postoperative change from right hemicolectomy. Mild segmental circumferential wall thickening in the splenic flexure of the colon with adjacent fat stranding. Appendix: No evidence of appendicitis. Intraperitoneal space: Unremarkable. No free air. No significant fluid collection. Vasculature: Unremarkable. No abdominal aortic aneurysm. Lymph nodes: Unremarkable. No enlarged lymph nodes. Urinary bladder: Unremarkable as visualized. Reproductive: Unremarkable as visualized. Bones/joints: Unremarkable. No acute fracture. Soft tissues: Unremarkable. CT/[place] [id number] IMPRESSION: Patchy airspace disease in the left lower lobe posteromedially. Suspected pneumonia. IMPRESSION: Mild segmental circumferential wall thickening in the splenic flexure of the colon with adjacent fat stranding. This likely represents a focal colitis. Though nonspecific, this is a common location for ischemic colitis.
--- NOTE | 2024-11-04 01:49 | ECG_ITS ---
SHERPA assistant [facility]Marq Test Date: 2024-11-04 Pat Name: Michelle Keita Department: Room: Gender: Female Stewardess Supervisor: : [id number] Requested By: Poly Espinosa Order Number: [id number] Reading MD: Measurements Intervals [place] Rate: 107 P: 108 LA: 214 QRS: 35 QRSD: 94 T: 71 QT: 344 QTc: 460 Interpretive Statements SINUS TACHYCARDIA WITH FIRST DEGREE AV BLOCK LOW QRS VOLTAGE IN PRECORDIAL LEADS [QRS DEFLECTION < 1.0 mV IN CHEST LEADS] [email or web address]
[2024-11-04 02:39] LABS: Reflex Lactate Order REFLEX LACTIC ORDERD
[2024-11-04 03:08] LABS: Lactic Acid level (Lactate) 1.6 mmol/L (0.5-2.2)
[2024-11-04 03:09] LABS: Troponin 5 2HR 21.86 ng/L (0-10)
[2024-11-04 03:12] LABS: Troponin 5 2HR Delta -1.14 ABS# (0-10)
--- NOTE | 2024-11-04 03:58 | PM.HP ---
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 She lives at [facility] where staff members attended to her and called ambulance. She traveled from [facility] in [facility] 40 minutes away. Patient tells me that she had to knee replacements been when the second 1 got infected she went to try antibiotics but infectious disease doctor said it would not clear an orthopedist said that could not be replaced a third time. She was pending aortic valve TAVR and the surgeon would not do the procedure with the infected knee so she had amputation above the knee. Patient recently battling chronic yeast infection elevated blood sugars and obesity. She has had 10 pound weight loss in 3 months on Mounjaro but is on max dose at 15 mg weekly. She does not count calories but states she tries to avoid eating too much carbs. Patient admits to a cough productive of green phlegm for about a month or 2. She quit smoking 2009 after 10 to 15 years of a pack per day. Review of Systems Narrative: General positive for 10 to 15 pounds weight loss in 3 months positive for chills subjective fever plus sweats Cardiovascular no chest pain or palpitations patient was noted to be tachycardic earlier in the ER. Respiratory positive for cough productive of green phlegm. Reports she is on BiPAP 16 over unknown for sleep apnea GI no nausea vomiting diarrhea she does have constipation drinks prune juice daily she denies abdominal pain Musculoskeletal she has had back pain and pain in her buttocks no dysuria hematuria [employer] no vaginal bleeding or she does have yeast infection in the vagina and also in the skull folds of her skin Malignancy she reports colon cancer 5 years ago last colonoscopy was 2 years ago Medications/Allergies Home Medications ?Medication ?Instructions ?Recorded ?Confirmed ?Last Taken ?Type aspirin 81 mg tablet,delayed 81 mg PO QAM 10/08/19 09/10/24 09/10/24 History release (Adult Aspirin Regimen) empagliflozin 25 mg-linagliptin 5 1 tab PO QAM 10/08/19 09/10/24 09/10/24 History mg tablet (Glyxambi) febuxostat 80 mg tablet (Uloric) 80 mg PO QAM 10/08/19 09/10/24 09/10/24 History levothyroxine 100 mcg tablet 100 mcg PO QAM 10/08/19 09/10/24 09/10/24 History pramipexole 1.5 mg tablet,extended 1.5 mg PO BEDTIME 10/08/19 09/10/24 09/09/24 History release 24 hr (Mirapex ER) simvastatin 40 mg tablet (Zocor) 40 mg PO QPM 10/08/19 09/10/24 09/09/24 History ascorbic acid (vitamin C) 500 mg 500 mg PO QAM 07/20/22 09/10/24 09/10/24 History tablet (Vitamin C) azelastine 137 mcg (0.1 %) nasal 2 spray intranasal BID 07/20/22 09/10/24 09/10/24 History spray calcium 600 mg (as 1 tab PO BID 07/20/22 09/10/24 09/10/24 History carbonate)-vitamin D3 5 mcg (200 unit) tablet denosumab 60 mg/mL subcutaneous See Rx Instructions .Route .COMPLEX 07/20/22 09/10/24 05/13/24 History syringe (Prolia) fluticasone fur. 100 mcg-umeclid 1 ea inhalation QAM 07/20/22 09/10/24 09/10/24 History 62.5 mcg-vilant 25 mcg inhalat.powder (Trelegy Ellipta) fluticasone propionate 50 1 spray intranasal DAILY 07/20/22 09/10/24 09/09/24 History mcg/actuation nasal spray,suspension insulin glargine 100 unit/mL (3 76 unit SUBCUT BID 07/20/22 09/10/24 09/10/24 History mL) subcutaneous pen (Lantus Solostar U-100 Insulin) insulin lispro 100 unit/mL See Rx Instructions .Route .COMPLEX 07/20/22 09/10/24 Unknown History subcutaneous pen ynjrkyhv-ush-jcmgq ac 400 1 tab PO DAILY 07/20/22 09/10/24 09/09/24 History mcg-calcium carb 500 mg-vit K1 20 mcg tablet (Women's 50 Plus Daily Formula) Saccharomyces boulardii 250 mg 250 mg PO QPM 09/27/22 09/10/24 09/09/24 History capsule (Daily Probiotic (S. boulardii)) cetirizine 10 mg tablet (Zyrtec) 10 mg PO BID 09/27/22 09/10/24 09/10/24 History guaifenesin 600 mg tablet, 600 mg PO BID 09/27/22 09/10/24 09/10/24 History extended release 12 hr (Mucinex) omega 2-kzp-oqi-fish oil 100 1 cap PO BID 09/27/22 09/10/24 09/10/24 History mg-160 mg-1,000 mg capsule (Fish Oil) tramadol 50 mg tablet 50 - 100 mg PO Q6H PRN Pain 09/27/22 09/10/24 Unknown History clopidogrel 75 mg tablet (Plavix) 75 mg PO QAM 12/27/23 09/10/24 09/10/24 History nystatin 100,000 unit/gram topical 1 applic topical DAILY 12/27/23 09/10/24 09/09/24 History cream pantoprazole 40 mg tablet,delayed 40 mg PO QAM 12/27/23 09/10/24 09/10/24 History release (Protonix) acetaminophen 325 mg tablet 650 mg PO Q6H PRN pain /elevated 09/10/24 09/10/24 Unknown History temp bisacodyl 5 mg tablet 5 mg PO DAILY PRN Constipation 09/10/24 09/10/24 Unknown History cholecalciferol (vitamin D3) 50 50 mcg PO BID 09/10/24 09/10/24 09/10/24 History mcg (2,000 unit) capsule (Vitamin D3) diclofenac sodium 1 % topical gel 4 g topical QID 09/10/24 09/10/24 09/09/24 History duloxetine 60 mg capsule,delayed 60 mg PO QAM 09/10/24 09/10/24 09/10/24 History release (Cymbalta) ferrous sulfate 325 mg (65 mg 325 mg PO BID 09/10/24 09/10/24 09/10/24 History iron) tablet hydrocodone 5 mg-acetaminophen 325 1 tab PO Q8H PRN Moderate Pain 09/10/24 09/10/24 Unknown History mg tablet (Scale Score 5-6) icosapent ethyl 1 gram capsule 2 g PO BID 09/10/24 09/10/24 09/10/24 History (Vascepa) lidocaine 2.5 %-prilocaine 2.5% 1 applic topical DAILY PRN Pain 09/10/24 09/10/24 Unknown History and m.salicy 30 %-menth 10 % top cream loperamide 2 mg capsule 2 mg PO Q3H PRN loose 09/10/24 09/10/24 Unknown History stools/diarrhea ondansetron 4 mg disintegrating 1 mg PO Q4H PRN nausea/emesis 09/10/24 09/10/24 Unknown History tablet oxybutynin chloride 10 mg 10 mg PO QAM 09/10/24 09/10/24 09/10/24 History tablet,extended release 24 hr sennosides 8.6 mg-docusate sodium 1 tab PO QAM 09/10/24 09/10/24 09/10/24 History 50 mg tablet (Senokot-S) tirzepatide 15 mg/0.5 mL 15 mg SUBCUT Q7D 09/10/24 09/10/24 09/06/24 History subcutaneous pen injector (Parveenunkishore) tizanidine 2 mg tablet 2 mg PO TID 09/10/24 09/10/24 09/10/24 History trazodone 100 mg tablet 100 mg PO BEDTIME 09/10/24 09/10/24 09/09/24 History triamcinolone acetonide 0.1 % 1 applic topical BID 09/10/24 09/10/24 09/09/24 History topical cream buspirone 30 mg tablet 15 mg (1/2 x 30 mg) PO BID anxiety 09/12/24 09/10/24 09/10/24 Rx #5 tabs pregabalin 50 mg capsule 50 mg PO DAILY #10 caps 09/12/24 09/10/24 09/10/24 Rx torsemide 20 mg tablet 20 mg PO DAILY PRN swelling #10 09/12/24 09/10/24 09/10/24 Rx tabs Allergies Allergy/AdvReac Type Severity Reaction Status Date / Time lisinopril Allergy Severe kidney Verified 09/10/24 14:53 failure Sulfa (Sulfonamide Allergy Intermediate ALGY-Rash Verified 09/10/24 14:53 Antibiotics) grass pollen Allergy Mild It's just Verified 09/10/24 14:53 a mild allergy. PHILIP Inhibitors Allergy Unknown Unknown Verified 09/10/24 14:53 allopurinol Allergy Unknown Unknown Verified 09/10/24 14:53 Beta-Blockers Allergy Unknown Unknown Verified 09/10/24 14:53 (Beta-Adrenergic Bloc (Beta-Blockers (Beta-Adrenergic Blocking Agts)) nickel Allergy Unknown Unknown Verified 09/10/24 14:53 polyethylene glycol 3350 AdvReac Mild ADR-Nausea Verified 09/10/24 14:53 (From Miralax) angiotensin receptor Allergy Unknown Unknown Uncoded 09/10/24 14:53 antagonists PFSH Acute PFSH: Medical History (Updated 11/04/24 @ 04:11 by Rob Castro MD) Obesity Abscess Infected prosthetic knee joint Alkalosis, metabolic Sinusitis Flash pulmonary edema Aortic stenosis UTI (urinary tract infection) Anasarca CHF (congestive heart failure) Encephalopathy acute Altered mental status Diabetes Sleep apnea COPD (chronic obstructive pulmonary disease) Hyperlipidemia CHF (congestive heart failure) Hypertension Hypothyroid Acute cystitis Weakness Generalized anxiety disorder Moderate episode of recurrent major depressive disorder Psychiatric care Surgical History (Updated 09/10/24 @ 18:48 by Lucas Monroe MD) History of tubal ligation History of colon surgery History of cholecystectomy History of neck surgery H/O total knee replacement lt x2 rt x 1 H/O carpal tunnel repair Family History Other Cancer Diabetes Hypertension Hypothyroidism Social History (Updated 11/04/24 @ 04:04 by Rob Castro MD) Smoking and tobacco/nicotine status: former use of tobacco/nicotine Quit status (tobacco/nicotine): has quit using Year quit tobacco: 2009 Alcohol intake: never Substance/Drug Use: never Additional social history: Patient wants full code as discussed today with her 11/04/2024 by Rob Castro MD Adopted: No Caregiver/support person: Yes (sets up medication and wound bandage change 2x week) Lives independently: Yes Household members: children Housing: Apartment Marital status: Number of children: 3 Number of grandchildren: 6 Highest education level completed: Some College, No Degree service: No Current occupational status: disabled Current occupation: disability since 1992 Current occupational exposures/hazards: No 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 Pets and animals: No Leisure activites: other Leisure activities details: watch TV,crafts Sexually active: No Do you think of yourself as: Straight/Heterosexual Current gender identity: Female Nida/Mandaeism: Evangelical Special nida needs: No Agree to transfusion: Yes Female Reproductive History: Para: 3 Vitals/I&O/Wt Last Vital Signs Temp 99.2 F 11/03/24 23:40 Pulse 110 H 11/04/24 02:00 Resp 20 H 11/04/24 02:00 BP 110/58 11/04/24 02:00 Pulse Ox 96 11/04/24 02:00 O2 Del Method Nasal Cannula 11/04/24 02:00 O2 Flow Rate 3 11/04/24 02:00 11/03/24 11/03/24 11/04/24 14:59 22:59 06:59 Intake Total 1000 / 1000 Balance 1000 / 1000 Weight last 48 hrs Weight 117.934 kg Physical Exam Narrative: General well-developed well-nourished morbidly obese female in no acute cardiopulmonary distress CV regular rate and rhythm with a 3/6 systolic ejection murmur best heard at the left sternal border Lungs poor air movement in the bases she has coarse expiratory rhonchi throughout that is mild upper airway occasional sonorous exhale Abdomen positive bowel sounds obese soft nontender intertriginous folds with odor of yeast and white discharge Right calf with erythema and pitting edema but the skin is not thickened or papular to suggest cellulitis is more consistent with stasis but cannot exclude early cellulitis Data 11/03/24 23:55 11/04/24 00:39 Micro: Microbiology 11/03/24 23:49 Blood Culture - Preliminary Blood SPECIMEN COLLECTED 11/03/24 00:10 Blood Culture - Preliminary Blood SPECIMEN COLLECTED A&P Assessment and plan (1) Pneumonia: Patient treated with Merrem and linezolid in the ER due to sepsis but x-ray looks like patchy infiltrate will treat with azithromycin and ceftriaxone (2) Sepsis: Much improved after fluid boluses and antibiotics (3) Acute hypoxic respiratory failure: Continue with oxygen. Add incentive spirometry. Resume BiPAP at 16/8 with backup rate of 12 (4) Insulin dependent type 2 diabetes mellitus: Continue with insulin 76 units subcu twice a day. She is quite resistant to insulin. Will add high-dose sliding scale insulin. Continue with her oral meds as well. She is maxed on Mounjaro (5) Obesity: Counseled the patient regarding need to count calories. Relying solely on high-dose Mounjaro will not be effective long-term. Needs to weigh daily and count calories (6) Hypertension: Resume blood pressure medications once blood pressure stable (7) Hyperlipidemia: Resume simvastatin (8) Cellulitis: Will treat with Rocephin PDMP PDMP Reviewed: Not Reviewed Attestations Medical Necessity Statement*: Patient is admitted to the hospital for pneumonia and sepsis and anticipate greater than 2 midnights in the hospital Coding Level of Care Code 31175 Diagnoses Pneumonia J18.9 Sepsis A41.9 Acute hypoxic respiratory failure J96.01 Insulin dependent type 2 diabetes mellitus E11.9; Z79.4 Obesity E66.9 Hypertension I10 Hyperlipidemia E78.5 Cellulitis L03.90 Time Spent (min) 70
--- NOTE | 2024-11-04 04:59 | ECG_ITS ---
[facility] Pat Name: Michelle Keita Department: Room: Gender: Female Director Graphics: : 1955 Requested By: Poly Espinosa Order Number: [id number] Reading MD: Measurements Intervals [place] Rate: 99 P: 110 VA: 227 QRS: 6 QRSD: 91 T: 45 QT: 379 QTc: 486 Interpretive Statements SINUS RHYTHM WITH FIRST DEGREE AV BLOCK LOW QRS VOLTAGE IN PRECORDIAL LEADS [QRS DEFLECTION < 1.0 mV IN CHEST LEADS] [email or web address]
[2024-11-04] MEDS: clopidogrel 75 mg Tablet PO (06:12)
[2024-11-04] MEDS: aspirin 81 mg EC Tablet PO (06:12)
[2024-11-04] MEDS: ascorbic acid 500 mg Tablet PO (06:12)
[2024-11-04] MEDS: sennosides-docusate Tablet 1 TAB PO (06:12)
[2024-11-04] MEDS: lactated ringers 1,000 ML 100 ML IV ×2 (06:12→15:17)
[2024-11-04] MEDS: HYDROcodone-acetaminophen 5-325 mg Tablet 1 TAB PO ×2 (06:12→17:47)
[2024-11-04] MEDS: pantoprazole DR 40 mg Tablet PO (06:12)
[2024-11-04] MEDS: duloxetine 60 mg Capsule PO (06:12)
[2024-11-04] MEDS: enoxaparin 40 mg/0.4 mL Syringe SUBCUT (06:12)
[2024-11-04] MEDS: levothyroxine 100 mcg Tablet PO (06:12)
[2024-11-04] MEDS: cefTRIAXone 1,000 mg SDV 1000 MG IVP ×2 (06:23→17:46)
[2024-11-04 06:34] LABS: Glucose Point of Care 175 mg/dL (70-110)
[2024-11-04 07:27] LABS: Troponin 5 6HR 19.32 ng/L (0-10)
[2024-11-04 07:32] LABS: Troponin 5 6HR Delta -3.68 ng/L (0-12)
[2024-11-04] MEDS: insulin glargine 100 units/1 mL 76 UNIT SUBCUT ×2 (08:10→17:45)
[2024-11-04] MEDS: insulin lispro 100 unit/1 mL SUBCUT ×4 (08:10→21:15)
[2024-11-04] MEDS: BuSPIRONE 10 mg Tablet 15 MG PO ×2 (08:11→17:46)
[2024-11-04] MEDS: cholecalciferol (vitamin D3) 1,000 unit Tablet 2000 UNIT PO ×2 (08:11→17:46)
[2024-11-04] MEDS: guaiFENesin 600 mg Tablet PO ×2 (08:11→17:46)
[2024-11-04] MEDS: oxybutynin chloride XL 5 MG TABLET 10 MG PO (08:11)
[2024-11-04] MEDS: calcium carb-vit d 600mg/400unit 1 Tablet 1 EACH PO ×2 (08:11→17:47)
[2024-11-04] MEDS: pregabalin 50 mg Capsule 75 MG PO (08:11)
[2024-11-04] MEDS: tizanidine 4 mg Tablet 2 MG PO ×3 (08:11→21:14)
[2024-11-04] MEDS: ferrous sulfate EC 325 mg Tablet PO ×2 (08:11→17:46)
[2024-11-04] MEDS: azithromycin 250 mg Tablet 500 MG PO (08:12)
[2024-11-04] MEDS: cetirizine 10 mg Tablet PO ×2 (08:12→17:46)
[2024-11-04] MEDS: fluticasone nasal spray 16gm Btl 1 SPRAY INTRANASAL (08:12)
[2024-11-04] MEDS: nystatin cream 30 gm 1 APPLIC TOPICAL (08:13)
[2024-11-04] MEDS: ipratropium-albuterol 3 mL Neb INHALATION ×4 (08:31→20:39)
[2024-11-04] MEDS: budesonide 0.5 mg/2 mL Neb INHALATION ×2 (08:31→20:39)
[2024-11-04 10:32] LABS: Glucose Point of Care 287 mg/dL (70-110)
[2024-11-04 11:00] LABS: Lactate (Lactic Acid level) 2.1 mmol/L (0.5-2.2)
--- NOTE | 2024-11-04 12:51 | P.PN_ITS ---
Subjective 2 Subjective: Patient was seen this morning, she is alert oriented x 3, following all commands, denies any fevers or chills this morning, she does use oxygen during the night with her BiPAP, we discussed her CT scan findings, she denies any abdominal pain, no left upper quadrant pain, no bloody or black stools, no diarrhea, Vitals/I&O/Wt Last Vital Signs Temp 98.0 F 11/04/24 10:53 Pulse 95 11/04/24 11:58 Resp 18 11/04/24 11:58 BP 90/46 11/04/24 10:53 Pulse Ox 95 11/04/24 11:58 O2 Del Method Room Air 11/04/24 11:58 O2 Flow Rate 2 11/04/24 08:34 11/03/24 11/04/24 11/04/24 22:59 06:59 14:59 Intake Total 2300 / 2300 480 / 480 Output Total 0 / 0 Balance 2300 / 2300 480 / 480 Weight last 48 hrs Weight 119.295 kg Weight 119.55 kg Weight 119.658 kg Weight 117.934 kg Physical Exam 2 Const: COMMON NORMALS: no acute distress and patient oriented x3 Resp: COMMON NORMALS: normal respiratory effort, No retractions and No use of accessory muscles AUSCULTATION: wheezes Cardio: COMMON NORMALS: regular rate, regular rhythm, S1 normal heart sound present and S2 normal heart sound present RATE: regular rate RHYTHM: r egular rhythm HEART SOUNDS: S1 normal heart sound present and S2 normal heart sound present GI: COMMON NORMALS: Normal to inspection, nondistended, normoactive bowel sounds present and non-tender Extremity: COMMON NORMALS: no pedal edema NARRATIVE EXTREMITY EXAM: Left above-knee amputation Right leg, knee replacement Right lower leg, just above the ankle area of erythema, patient reports is chronically likeness, interested in venous stasis, not tender, not warm to touch Neuro: COMMON NORMALS: patient oriented x3 Psych: COMMON NORMALS: mental status grossly normal Data 11/03/24 23:55 11/04/24 00:39 Micro: Microbiology 11/03/24 23:49 Blood Culture - Preliminary Blood SPECIMEN COLLECTED 11/03/24 00:10 Blood Culture - Preliminary Blood SPECIMEN COLLECTED A&P Assessment and plan (1) Pneumonia: - CT imaging shows patchy airspace disease in the left lower lobe posterior medially - Continue Rocephin, Zithromycin - Monitor respiratory status closely (2) Sepsis: - Has received fluid bolus, IV antibiotics - Monitor (3) Acute hypoxic respiratory failure: -Resume home BiPAP at 16/8 with backup rate of 12 (4) Insulin dependent type 2 diabetes mellitus: -Continue with insulin 76 units subcu twice a day - Add insulin sliding scale (5) Obesity: (6) Hypertension: Resume home medications (7) Hyperlipidemia: Resume simvastatin (8) Cellulitis: Continue Rocephin, right lower extremity PDMP PDMP Reviewed: Not Reviewed Attestations 2 Medical Necessity Statement*: Patient requires hospitalization for cellulitis, pneumonia, requiring IV antibiotics Diagnoses Pneumonia J18.9 Sepsis A41.9 Acute hypoxic respiratory failure J96.01 Insulin dependent type 2 diabetes mellitus E11.9; Z79.4 Obesity E66.9 Hypertension I10 Hyperlipidemia E78.5 Cellulitis L03.90
[2024-11-04] MEDS: pregabalin 75 mg Capsule PO ×2 (15:17→21:15)
[2024-11-04 16:52] LABS: Glucose Point of Care 223 mg/dL (70-110)
[2024-11-04] MEDS: atorvastatin 40 mg Tablet 20 MG PO (17:46)
[2024-11-04 21:05] LABS: Glucose Point of Care 312 mg/dL (70-110)
[2024-11-04] MEDS: trazodone 100 mg Tablet PO (21:15)
[2024-11-05] MEDS: lactated ringers 1,000 ML 100 ML IV (03:00)
[2024-11-05 04:00] VITALS: PULSE 89
[2024-11-05 04:04] VITALS: BP 146/80; PULSE 90; RESP 19; TEMP 36.9; O2SAT 94
[2024-11-05 04:09] VITALS: PULSE 79; RESP 17; O2SAT 98
[2024-11-05] MEDS: enoxaparin 40 mg/0.4 mL Syringe SUBCUT (05:30)
[2024-11-05] MEDS: clopidogrel 75 mg Tablet PO (05:30)
[2024-11-05] MEDS: pantoprazole DR 40 mg Tablet PO (05:30)
[2024-11-05] MEDS: levothyroxine 100 mcg Tablet PO (05:30)
[2024-11-05] MEDS: aspirin 81 mg EC Tablet PO (05:30)
[2024-11-05] MEDS: cefTRIAXone 1,000 mg SDV 1000 MG IVP (05:30)
[2024-11-05] MEDS: sennosides-docusate Tablet 1 TAB PO (05:30)
[2024-11-05] MEDS: duloxetine 60 mg Capsule PO (05:30)
[2024-11-05] MEDS: ascorbic acid 500 mg Tablet PO (05:30)
[2024-11-05] MEDS: oxybutynin chloride XL 5 MG TABLET 10 MG PO (05:31)
[2024-11-05] MEDS: HYDROcodone-acetaminophen 5-325 mg Tablet 1 TAB PO (06:03)
[2024-11-05 06:42] LABS: Glucose Point of Care 82 mg/dL (70-110)
[2024-11-05] MEDS: azithromycin 250 mg Tablet 500 MG PO (07:34)
[2024-11-05] MEDS: insulin glargine 100 units/1 mL 76 UNIT SUBCUT (07:34)
[2024-11-05] MEDS: cholecalciferol (vitamin D3) 1,000 unit Tablet 2000 UNIT PO (07:34)
[2024-11-05] MEDS: guaiFENesin 600 mg Tablet PO (07:35)
[2024-11-05] MEDS: pregabalin 75 mg Capsule PO (07:35)
[2024-11-05] MEDS: cetirizine 10 mg Tablet PO (07:35)
[2024-11-05] MEDS: tizanidine 4 mg Tablet 2 MG PO (07:35)
[2024-11-05] MEDS: BuSPIRONE 10 mg Tablet 15 MG PO (07:35)
[2024-11-05] MEDS: ferrous sulfate EC 325 mg Tablet PO (07:35)
[2024-11-05] MEDS: calcium carb-vit d 600mg/400unit 1 Tablet 1 EACH PO (07:35)
[2024-11-05] MEDS: nystatin cream 30 gm 1 APPLIC TOPICAL (07:36)
[2024-11-05] MEDS: fluticasone nasal spray 16gm Btl 1 SPRAY INTRANASAL (07:36)
[2024-11-05] MEDS: ipratropium-albuterol 3 mL Neb INHALATION (07:38)
[2024-11-05] MEDS: budesonide 0.5 mg/2 mL Neb INHALATION (07:38)
[2024-11-05 07:40] VITALS: PULSE 97; RESP 18; O2SAT 96
[2024-11-05 07:58] LABS: Basophils # 0.1 10^3/uL (0.0-0.1); Basophils % 0.5 %; Eosinophils # 0.2 10^3/uL (0.0-0.8); Hematocrit 33.5 % (36-47); Lymphocytes # 1.3 10^3/uL (0.8-4.8); Lymphocytes % 13.5 %; Mean Corpuscular HGB Conc 30.4 g/dL (30-55); Mean Corpuscular Hemoglobin 27.6 pg (27-33); Mean Corpuscular Volume 90.5 fl (85-98); Mean Platelet Volume 10.2 fL (7.4-10.4); Monocytes # 0.6 10^3/uL (0.2-0.9); Monocytes % 5.9 %; Neutrophils # 7.39 10^3/uL (1.8-7.7); Neutrophils % 77.7 %; Nucleated Red Blood Cells % 0 %; Platelet Count 126 10^3/cmm (157-399); Red Cell Distribution Width 15.2 % (12.1-15.1); White Blood Count 9.51 10^3/uL (3.29-11.43)
[2024-11-05 08:00] VITALS: BP 152/63; PULSE 93; RESP 17; TEMP 36.8; O2SAT 94
[2024-11-05 08:16] LABS: Anion Gap 15.5 (5-19); Blood Urea Nitrogen 16 mg/dL (8-23); Calcium 8.9 mg/dL (8.5-10.5); Carbon Dioxide 23 mmol/L (22-29); Chloride 106 mmol/L (98-107); Glucose 104 mg/dL (65-115); Osmolality Calculated 291 mOsm/kg (285-295); Potassium 4.5 mmol/L (3.5-5.1); Sodium 140 mmol/L (136-145)
[2024-11-05] MEDS: FUROsemide 10 mg/mL SDV 2mL 20 MG IVP (09:07)
--- NOTE | 2024-11-05 09:15 | PC.NURSE ---
D/C pending transport to [facility].
--- NOTE | 2024-11-05 10:17 | PC.CHAP ---
Pastoral Care Encounter/Spiritual Assessment Type of Contact [] Declined slitting and shipping supervisor visit [] Patient/Family/Request visit [] Outpatient visit [] Follow-up visit [] Physician referral [] Code/Alert [] Routine visit [] Staff referral [] Actively dying [] Patient sleeping [] Family support [] [] Out of room [] Palliative care [] [x] Receiving care in room [] Pre-surgical visit [] Trauma [] Long length of stay [] ICU visit [] Other: Relational/Emotional Strength [] Patient feels connected with others/family/visitors/staff [] Distress [] Loneliness/isolation [] Abandonment Spirituality of Patient [] Person of Nida [] Attends Mandaen of their Nida [] Believes in Prayer [] Reads Bible or Church materials [] There are Spiritual issues to be addressed School Transportation Supervisor Interventions [] Prayer [] Active listening [] Non-anxious presence [] Spiritual/emotional support [] Crisis/trauma care [] Spiritual counseling [] Bereavement support [] Provided bereavement packet [] Provided Bible/devotional materials [] Provided toy/stuffed animal, coloring book to patient or family member [] Provided Communion [] Anointing/[place] [] Salvation [] Completed spiritual assessment [] Other: Impact on Illness or Injury [] Angry [] Fearful [] Anxious [] Often cries [] Exhaustion [] Unable to work [] Unable to attend anglican [] Unable to walk/stand [] Unable to read [] Unable to drive [] Unable to eat/drink [] Unable to sleep [] Unable to be with family [] Patient intubated [] Other: Summary Time spent with patient
--- NOTE | 2024-11-05 10:54 | PC.NURSE ---
This nurse called report to ENRIKE Hernández at [facility]. Their local delivery truck driver is on their way to pick pt up.
[2024-11-05 11:26] LABS: Glucose Point of Care 187 mg/dL (70-110)
[2024-11-05 11:38] VITALS: BP 142/60; PULSE 90; O2SAT 94
--- NOTE | 2024-11-10 10:59 | PM.DCS ---
Discharge Providers Date of Admission: 11/04/24 03:15 Date of Discharge: November 10, 2024 Attending Provider at Admission: Rob Castro MD Attending Provider at Discharge: Hayden Smith MD Primary Care Provider: Ruby Chow MD Diagnoses at Discharge Discharge Diagnosis (1) Pneumonia: Status: Resolved (2) Sepsis: Status: Resolved (3) Acute hypoxic respiratory failure: Status: Resolved (4) Insulin dependent type 2 diabetes mellitus: Status: Acute (5) Obesity: Status: Acute (6) Hypertension: Status: Acute (7) Hyperlipidemia: Status: Acute (8) Cellulitis: Status: Resolved Reason for Visit Reason for Visit: WEAKNESS Hospital Course Hospital Course Patient is a 69-year-old female with past medical history of morbid obesity, diabetes, left leg amputation, who presents [facility] due to a cough, elevated heart rate, low blood pressures, subjective fevers Patient was admitted to [facility] due to pneumonia, CT chest showing left lower lobe pneumonia, received IV antibiotics, met sepsis criteria received fluid bolus, overall clinically improved, will be discharged with oral antibiotic Concerns for cellulitis, right lower extremity, received IV antibiotics, discharged on p.o. antibiotics Physical Exam Const: COMMON NORMALS: no acute distress and patient oriented x3 Resp: COMMON NORMALS: normal respiratory effort, No retractions, No use of accessory muscles and clear to auscultation bilaterally AUSCULTATION: clear to auscultation bilaterally Cardio: COMMON NORMALS: regular rate, regular rhythm, S1 normal heart sound present and S2 normal heart sound present RATE: regular rate RHYTHM: regular rhythm HEART SOUNDS: S1 normal heart sound present and S2 normal heart sound present GI: COMMON NORMALS: Normal to inspection, nondistended, normoactive bowel sounds present and non-tender Extremity: COMMON NORMALS: no pedal edema Neuro: COMMON NORMALS: patient oriented x3 Psych: COMMON NORMALS: mental status grossly normal Skin: NARRATIVE SKIN EXAM: Area of cellulitis significantly resolved, Discharge Data Studies Completed and Pending Completed Studies During Hospitalization Category Date Time Status CT chest abdomen pelvis [[place] [id number] Cat Scan 11/04/24 01:48 Completed ] Stat CT head wo con* [id number] Stat Cat Scan 11/03/24 23:49 Completed XR chest 1V portable [id number] Stat Exams 11/03/24 23:49 Completed Radiology Impressions Chest X-Ray 11/03/24 23:49 IMPRESSION: No acute findings. Head CT 11/03/24 23:49 IMPRESSION: No acute intracranial abnormality. Chest/Abdomen/Pelvis CT 11/04/24 01:48 IMPRESSION: Patchy airspace disease in the left lower lobe posteromedially. Suspected pneumonia. IMPRESSION: Mild segmental circumferential wall thickening in the splenic flexure of the colon with adjacent fat stranding. This likely represents a focal colitis. Though nonspecific, this is a common location for ischemic colitis. ADDENDUM: 11/04/24 0304 THIS REPORT CONTAINS FINDINGS THAT MAY BE CRITICAL TO PATIENT CARE. The findings were verbally communicated via telephone conference at 3:02 AM CDT on 11/04/2024 with LEORA ALANIZ. The findings were acknowledged and understood. Laboratory Results WBC 9.51 10^3/uL (3.29-11.43) 11/05/24 07:45 RBC 3.70 10^6/uL (3.85-5.65) L 11/05/24 07:45 Hgb 10.20 g/dL (11.27-16.99) L 11/05/24 07:45 Hct 33.5 % (36-47) L 11/05/24 07:45 MCV 90.5 fl (85-98) 11/05/24 07:45 MCH 27.6 pg (27-33) 11/05/24 07:45 MCHC 30.4 g/dL (30-55) 11/05/24 07:45 RDW 15.2 % (12.1-15.1) H 11/05/24 07:45 Plt Count 126 10^3/cmm (157-399) L 11/05/24 07:45 MPV 10.2 fL (7.4-10.4) 11/05/24 07:45 Neut % (Auto) 77.7 % 11/05/24 07:45 Lymph % (Auto) 13.5 % 11/05/24 07:45 Hemphill % (Auto) 5.9 % 11/05/24 07:45 Eos % (Auto) 2.0 % 11/05/24 07:45 Baso % (Auto) 0.5 % 11/05/24 07:45 Neut # (Auto) 7.39 10^3/uL (1.8-7.7) 11/05/24 07:45 Lymph # (Auto) 1.3 10^3/uL (0.8-4.8) 11/05/24 07:45 Hemphill # (Auto) 0.6 10^3/uL (0.2-0.9) 11/05/24 07:45 Eos # (Auto) 0.2 10^3/uL (0.0-0.8) 11/05/24 07:45 Baso # (Auto) 0.1 10^3/uL (0.0-0.1) 11/05/24 07:45 Nucleated RBC % (auto) 0 % 11/05/24 07:45 Nucleated RBCs # 0.0 /100WBC 11/05/24 07:45 Sodium 140 mmol/L (136-145) 11/05/24 07:45 Potassium 4.5 mmol/L (3.5-5.1) 11/05/24 07:45 Chloride 106 mmol/L (98-107) 11/05/24 07:45 Carbon Dioxide 23 mmol/L (22-29) 11/05/24 07:45 Anion Gap 15.5 (5-19) 11/05/24 07:45 BUN 16 mg/dL (8-23) 11/05/24 07:45 Creatinine 0.6 mg/dL (0.5-0.9) 11/05/24 07:45 GFR Calculation Not Reportable 11/05/24 07:45 Glucose 104 mg/dL (65-115) 11/05/24 07:45 POC Glucose 187 mg/dL (70-110) H 11/05/24 10:51 Calculated Osmolality 291 mOsm/kg (285-295) 11/05/24 07:45 Lactic Acid 2.1 mmol/L (0.5-2.2) 11/04/24 00:39 Lactic Acid (Sepsis) 1.6 mmol/L (0.5-2.2) 11/04/24 02:43 Lactate 2.1 mmol/L (0.5-2.2) 11/04/24 10:23 Calcium 8.9 mg/dL (8.5-10.5) 11/05/24 07:45 Total Bilirubin 0.4 mg/dL (0.15-1.2) 11/04/24 00:39 AST 28 U/L (0-32) 11/04/24 00:39 ALT 19 U/L (0-33) 11/04/24 00:39 Alkaline Phosphatase 118 U/L (35-105) H 11/04/24 00:39 Troponin T Baseline 23 ng/L (0-10) H 11/04/24 00:39 Troponin T 120 Minute 21.86 ng/L (0-10) H 11/04/24 02:43 Delta Troponin T -1.14 ABS# (0-10) L 11/04/24 02:43 Troponin T Hi Sens 6Hr 19.32 ng/L (0-10) H 11/04/24 06:50 Troponin T Hi Sens 6Hr Delta -3.68 ng/L (0-12) L 11/04/24 06:50 C-Reactive Protein 16.3 mg/L (0.0-4.9) H 11/04/24 00:39 NT-Pro-B Natriuret Pep 282 pg/mL (0-125) H 11/04/24 00:39 Total Protein 6.8 g/dL (6.6-8.7) 11/04/24 00:39 Albumin 3.6 g/dL (3.5-5.2) 11/04/24 00:39 Globulin 3.2 g/dL (1.3-4.6) 11/04/24 00:39 Urine Color Yellow (Yellow) 11/04/24 00:50 Urine Appearance Clear (CLEAR) 11/04/24 00:50 Urine pH 5.5 (5-7) 11/04/24 00:50 Ur Specific Williams 1.037 (1.005-1.030) H 11/04/24 00:50 Urine Protein Negative (Negative) 11/04/24 00:50 Urine Glucose (UA) 3+ (Normal) H 11/04/24 00:50 Urine Ketones Negative (Negative) 11/04/24 00:50 Urine Blood 2+ (Negative) A 11/04/24 00:50 Urine Nitrate Negative (Negative) 11/04/24 00:50 Urine Bilirubin Negative (Negative) 11/04/24 00:50 Urine Urobilinogen 0.2 mg/dL (Negative) 11/04/24 00:50 Ur Leukocyte Esterase Negative (Negative) 11/04/24 00:50 Urine RBC 11-20 /hpf (0-2) H 11/04/24 00:50 Urine WBC 0-5 /hpf (0-5) 11/04/24 00:50 Ur Squamous Epith Cells 6-10 /hpf (0-5) 11/04/24 00:50 Amorphous Sediment Not Reportable 11/04/24 00:50 Urine Bacteria None seen /hpf (NONE) 11/04/24 00:50 Hyaline Casts 1.65 /lpf 11/04/24 00:50 Influenza A (PCR) Negative (Negative) 11/04/24 00:10 Influenza Type B (PCR) Negative (Negative) 11/04/24 00:10 RSV (PCR) Negative (Negative) 11/04/24 00:10 SARS-CoV-2 (PCR) Negative (Negative) 11/04/24 00:10 Vitals Last Vital Signs Temp 98.3 F 11/05/24 08:00 Pulse 90 11/05/24 11:38 Resp 17 11/05/24 08:00 BP 142/60 11/05/24 11:38 Pulse Ox 94 11/05/24 11:38 O2 Del Method Room Air 11/05/24 08:00 O2 Flow Rate 2 11/05/24 07:47 FiO2 32 11/05/24 04:09 Discharge Plan Discharge Patient Disposition: Home Condition: Stable Prescriptions: New doxycycline hyclate 100 mg tablet 100 mg PO BID 7 Days Qty: 14 0RF cefdinir 300 mg capsule 300 mg PO BID 7 Days Qty: 14 0RF Continued aspirin [Adult Aspirin Regimen] 81 mg tablet,delayed release (DR/EC) 81 mg PO QAM levothyroxine 100 mcg tablet 100 mcg PO QAM Glyxambi 25-5 mg tablet 1 tab PO QAM simvastatin [Zocor] 40 mg tablet 40 mg PO QPM febuxostat [Uloric] 80 mg tablet 80 mg PO QAM pramipexole [Mirapex ER] 1.5 mg tablet extended release 24 hr 1.5 mg PO BEDTIME cetirizine [Zyrtec] 10 mg tablet 10 mg PO BID Fish Oil 100-160-1,000 mg capsule 1 cap PO BID tramadol 50 mg tablet 50 - 100 mg PO Q6H PRN (Reason: Pain) guaifenesin [Mucinex] 600 mg tablet extended release 12hr 600 mg PO BID Saccharomyces boulardii [Daily Probiotic (S. boulardii)] 250 mg capsule 250 mg PO QPM pantoprazole [Protonix] 40 mg tablet,delayed release (DR/EC) 40 mg PO QAM clopidogrel [Plavix] 75 mg tablet 75 mg PO QAM nystatin 100,000 unit/gram cream 1 applic topical DAILY nystatin 100,000 unit/gram powder See Rx Instructions .ROUTE .COMPLEX Rx Instructions: Apply topically to Affected tamika two times daily fluconazole 150 mg tablet 150 mg PO ONCE PRN (Reason: vaginal symptoms) pregabalin 75 mg Capsule 75 mg PO TID azelastine 137 mcg (0.1 %) aerosol,spray 2 spray intranasal BID fluticasone propionate 50 mcg/actuation spray,suspension 1 spray INTRANASAL DAILY insulin lispro 100 unit/mL insulin pen See Rx Instructions .ROUTE .COMPLEX Rx Instructions: Inject 4 times daily as needed PER SLIDING SCALE: BS 141-180=2 units, 181-220=4 units, 221-260=6 units, 261-300=8 unitsm greater than 300=10 units, greater than 400 mavis MD. insulin glargine [Lantus Solostar U-100 Insulin] 100 unit/mL (3 mL) insulin pen 76 unit SUBCUT BID Trelegy Ellipta 100-62.5-25 mcg blister with device 1 ea INHALATION QAM Prolia 60 mg/mL syringe See Rx Instructions .ROUTE .COMPLEX Rx Instructions: Inject 60mg sub-q every 6 months on first Sunday in November and May. calcium carbonate-vitamin D3 600 mg-5 mcg (200 unit) Tablet 1 tab PO BID ascorbic acid (vitamin C) [Vitamin C] 500 mg Tablet 500 mg PO QAM Women's 50 Plus Daily Formula 400 mcg-500 mg calcium-20 mcg Tablet 1 tab PO DAILY acetaminophen 325 mg Tablet 650 mg PO Q6H PRN (Reason: pain /elevated temp) tizanidine 2 mg tablet 2 mg PO TID loperamide 2 mg Capsule 2 mg PO Q3H PRN (Reason: loose stools/diarrhea) Rx Instructions: administer after each loose stool until symptoms controlled; do not exceed 8 mg per 24 hrs oxybutynin chloride 10 mg tablet extended release 24hr 10 mg PO QAM hydrocodone-acetaminophen 5-325 mg tablet 1 tab PO Q8H PRN (Reason: Moderate Pain (Scale Score 5-6)) sennosides-docusate sodium [Senokot-S] 8.6-50 mg Tablet 1 tab PO QAM triamcinolone acetonide 0.1 % cream 1 applic TOPICAL BID trazodone 100 mg tablet 100 mg PO BEDTIME ferrous sulfate 325 mg (65 mg iron) Tablet 325 mg PO BID ondansetron 4 mg tablet,disintegrating 1 mg PO Q4H PRN (Reason: nausea/emesis) bisacodyl 5 mg Tablet 5 mg PO DAILY PRN (Reason: Constipation) diclofenac sodium 1 % gel 4 g TOPICAL QID cholecalciferol (vitamin D3) [Vitamin D3] 50 mcg (2,000 unit) Capsule 50 mcg PO BID icosapent ethyl [Vascepa] 1 gram Capsule 2 g PO BID [id number].[id number]-[id number] 2.5-2.5-30-10 % Cream 1 applic TOPICAL DAILY PRN (Reason: Pain) Mounjaro 15 mg/0.5 mL pen injector 15 mg SUBCUT Q7D Rx Instructions: Sunday duloxetine [Cymbalta] 60 mg capsule,delayed release(DR/EC) 60 mg PO QAM torsemide 20 mg tablet 20 mg PO DAILY PRN (Reason: swelling) Qty: 10 0RF buspirone 30 mg tablet 15 mg PO BID Qty: 5 0RF Discharge Orders: Discharge Order (Routine); Ordered 11/05/24 Ordered By: Hayden Smith Referrals: Irene Wiggins [Outside] Ruby Chow MD [Primary Care Provider, Family Practice] - 11/10/24 12:20 pm Referral Note: APPOINTMENT IS AT [facility] [phone] Discharge Diet: Cardiac Discharge Activity: Resume usual activity Patient Instructions: Doxycycline (By mouth), Cefdinir (By mouth), Opioid Safety, Pneumonia Stoplight Activity Restrictions/Additional Instructions: -if any recurrent fevers, go to the emergency room Discharge Attestations Time Spent in Discharge Care*: greater than 30 min Status at Discharge: Cognitive status at discharge: cognitively intact, Behavioral status at discharge: cooperative, Quality Metrics Clinical Quality Measures [ No reported AMI, CVA or VTE this stay] Coding Level of Care Code Acute Code for Chg Fwd Diagnoses Pneumonia J18.9 Sepsis A41.9 Acute hypoxic respiratory failure J96.01 Insulin dependent type 2 diabetes mellitus E11.9; Z79.4 Obesity E66.9 Hypertension I10 Hyperlipidemia E78.5 Cellulitis L03.90
== END 2024-11-05 11:39 | disposition home or self-care (01) | DRG 871 ==
LOC: ER 11-04 03:29 → MEDSURG 11-04 03:37
PROVIDERS: Admitting Provider Internal Medicine; Emergency Provider Emergency Medicine; PCP Family Medicine; Visit Provider Family Medicine
DX: A41.9 Sepsis, unspecified organism (principal); J18.9 Pneumonia, unspecified organism; J96.01 Acute respiratory failure with hypoxia; L03.115 Cellulitis of right lower limb; E66.01 Morbid (severe) obesity due to excess calories; I50.9 Heart failure, unspecified; I35.0 Nonrheumatic aortic (valve) stenosis; E11.9 Type 2 diabetes mellitus without complications; J44.9 Chronic obstructive pulmonary disease, unspecified; E78.5 Hyperlipidemia, unspecified; E03.9 Hypothyroidism, unspecified; F41.1 Generalized anxiety disorder; Z87.891 Personal history of nicotine dependence; E86.0 Dehydration
CPT/HCPCS: 36415; 36416; 51701; 70450; 71045; 71250; 74176; 80048; 80053; 81001; 82962; 83605; 83880; 84484; 85025; 86140; 87040; 87086; 87637; 93005; 94640; 94660; 96365; 96372; 96375; 97162; 97530; 99285; J0692; J0696; J1650; J1815; J1938; J2020; J7030; J7120; J7626; J9999; Q0144; Q3014